=== PATIENT | female | born 1935 | race Caucasian/White ===

== ENCOUNTER 2017-05-02 21:18 | Emergency (ER) | payer MEDICARE, OTHER ==
[2017-05-02 21:22] VITALS: BP 173/70; PULSE 60; RESP 16; TEMP 98.6; O2SAT 98
[2017-05-02 21:52] VITALS: O2SAT 97
[2017-05-02 21:59] VITALS: BP 166/71; PULSE 55; RESP 16; O2SAT 98
--- NOTE | 2017-05-02 22:03 | PD ---
HPI Chief Complaint: Complaint Time Seen by Provider: 21:54 Travel History International Travel<30 days: No Contact w/Intl Traveler<30days: No Traveled to known affect area: No History of Present Illness HPI The patient is a 81 year old female who presents to the [facility] emergency department with a history of dysuria with urinary urgency and a strong odor to her urine that reportedly began 2 days ago. The patient incidentally also reports that she's had a cough, congestion, that began approximately 3 days ago after a recent cold friend came through. She does have a history of allergies. She reports that her cough has been productive of clear sputum. She denies having any fevers or back pain. She does report that yesterday she did have one episode of vomiting. She reports that today she had 1 episode of diarrhea. She does have problems with recurrent diarrhea related to a history of colitis. She is unsure of the type of colitis that she's been diagnosed with previously. She denies having any chest pain or shortness of breath. On review of systems otherwise she denies having any chills, neck pain , abdominal pain, or new neurologic symptoms. [facility] Past Medical History Narrative Medical The patient's past medical history is significant for Parkinson's disease, schizophrenia, dementia, orthostatic hypotension, history of coronary artery disease status post CT 2 years ago with angioplasty and 2 stents placed, diabetes mellitus, liver disease, chronic renal sufficiency, macular degeneration, diabetic neuropathy, left breast cancer, colon cancer. Cardiac Catheterization: Yes Dementia: Yes Diabetes: Yes Patient Takes Glucophage: No Diminished Hearing: No Medical other: Yes (NEUROPATHY) Schizophrenia: Yes Sleep Apnea: Yes ?: Not Para: 0 Past Surgical History Narrative Surgical The patient's past surgical history is significant for left breast mastectomy, partial colon resection, cardiac catheterization with 2 stents placed, eye surgery Abdominal Surgery: Yes (COLON CANCER(2002)) Coronary Stent: Yes (X2) Eye Surgery: Yes (2 CATARACTS REMOVED (2009)) Mastectomy: Yes (LEFT(2000)) Social History Alcohol Use: No Tobacco Use: No Substance Use: No Allergies-Medications (Allergen,Severity, Reaction): Coded Allergies: Barbiturates (Verified Allergy, Unknown, 05/02/17) amoxicillin (Verified Allergy, Unknown, 05/02/17) epinephrine (Verified Adverse Reaction, Unknown, Lethargy, 05/02/17) sulfamethoxazole (Verified Adverse Reaction, Unknown, Nausea/Vomiting, 05/02/17) trimethoprim (Verified Adverse Reaction, Unknown, Nausea/Vomiting, 05/02/17 ) Reported Meds & Prescriptions Reported Meds & Active Scripts Active Keflex (Cephalexin) 500 Mg Cap 500 Mg PO Q8H Review of Systems Except as stated in HPI: all other systems reviewed are Neg General / Constitutional: No: Fever Eyes: No: Visual changes HENT: Positive: Congestion, No: Headaches, Rhinorrhea, Nosebleed Cardiovascular: No: Chest Pain or Discomfort Respiratory: Positive: Cough, No: Shortness of Breath Gastrointestinal: Positive: Nausea, Vomiting, Diarrhea, No: Abdominal Pain, Hematemesis, Hematochezia, Changes in Bowel Habits, Indigestion, Loss of Appetite Genitourinary: Positive: Urgency, Dysuria, Incontinence, Other (strong odor to urine) Musculoskeletal: No: Pain Skin: No Rash Neurologic: No: Weakness, Focal Abnormalities, Change in Mentation, Slurred Speech, Sensory Disturbance Psychiatric: No: Depression Endocrine: No: Polydipsia Hematologic/Lymphatic: No: Easy Bruising Physical Exam Narrative General: The patient is a well-nourished female in no acute distress. Head and Neck exam: Head is normocephalic atraumatic. Eyes: EOMI, pupils are equal round and reactive to light. Nose: Midline septum with pink mucous membranes Mouth: Dentition unremarkable. Moist mucus membranes. Posterior oropharynx is not erythematous. No tonsillar hypertrophy. Uvula midline. Airway patent. Sinuses: No tenderness on palpation of the frontal or maxillary sinuses. Neck: No palpable lymphadenopathy. No nuchal rigidity. No thyromegaly. Cardiovascular: Regular rate and rhythm without murmurs, gallops, or rubs. Lungs: Clear to auscultation bilaterally. No wheezes, rhonchi, or rales. Abdomen: Soft, without tenderness to palpation in all 4 quadrants of the abdomen. No guarding, rebound, or rigidity. Normal bowel sounds are audible. No tenderness on palpation of McBurney's point. Extremities: No clubbing, cyanosis, or edema. 2+ pulses in all 4 extremities. Back: No spinous process tenderness to palpation. No costovertebral angle tenderness to palpation. Neurologic Exam: Grossly nonfocal. Skin Exam: No rash noted. Intact skin that is warm and dry. Data Data Last Documented VS Vital Signs Date Time Temp Pulse Resp B/P (MAP) Pulse Ox O2 Delivery O2 Flow Rate FiO2 05/02/17 21:59 55 16 166/71 (102) 98 Room Air 05/02/17 21:22 98.6 Orders Orders Urinalysis - C+S If Indicated (05/02/17 21:54) Urine Culture (05/02/17 22:18) Electrocardiogram (05/02/17 22:28) Complete Blood Count With Diff (05/02/17 22:28) Comprehensive Metabolic Panel (05/02/17 22:28) Troponin I (05/02/17 22:28) Prothrombin Time / Inr (Pt) (05/02/17:28) Act Partial Throm Time (Ptt) (05/02/17 22:28) Lipase (05/02/17 22:28) Westergren Sedimentation Rate (05/02/17 22:28) Magnesium (Mg) (05/02/17 22:28) Chest, Single Ap (05/02/17 22:28) Iv Access Insert/Monitor (05/02/17 22:28) Ecg Monitoring (05/02/17 22:28) Oximetry (05/02/17 22:28) Sodium Chlorid 0.9% 500 Ml Inj (Ns 500 M (05/02/17 22:30) Nitrofurantoin Monohyd Macrocr (Macrobid (05/02/17 22:45) Ondansetron Inj (Zofran Inj) (05/02/17 22:45) Ed Discharge Order (05/02/17 23:42) Labs Laboratory Tests Test 05/02/17 22:18 05/02/17 22:35 Urine Color YELLOW Urine Turbidity HAZY Urine pH 5.5 Urine Specific [place] 1.018 Urine Protein TRACE mg/dL Urine Glucose (UA) NEG mg/dL Urine Ketones NEG mg/dL Urine Occult Blood NEG Urine Nitrite NEG Urine Bilirubin NEG Urine Urobilinogen LESS THAN 2.0 MG/DL Urine Leukocyte Esterase LARGE Urine RBC 7 /hpf Urine WBC 151 /hpf Urine WBC Clumps FEW Urine Squamous Epithelial Cells 1 /hpf Urine Bacteria MANY /hpf Urine Hyaline Casts 6 /lpf Urine Mucus FEW /lpf Microscopic Urinalysis Comment CULTURE INDICATED White Blood Count 9.7 TH/MM3 Red Blood Count 4.04 MIL/MM3 Hemoglobin 12.8 GM/DL Hematocrit 36.9 % Mean Corpuscular Volume 91.4 FL Mean Corpuscular Hemoglobin 31.6 PG Mean Corpuscular Hemoglobin Concent 34.5 % Red Cell Distribution Width 15.0 % Platelet Count 228 TH/MM3 Mean Platelet Volume 9.2 FL Neutrophils (%) (Auto) 71.7 % Lymphocytes (%) (Auto) 21.4 % Monocytes (%) (Auto) 5.1 % Eosinophils (%) (Auto) 1.6 % Basophils (%) (Auto) 0.2 % Neutrophils # (Auto) 6.9 TH/MM3 Lymphocytes # (Auto) 2.1 TH/MM3 Monocytes # (Auto) 0.5 TH/MM3 Eosinophils # (Auto) 0.2 TH/MM3 Basophils # (Auto) 0.0 TH/MM3 CBC Comment DIFF FINAL Differential Comment Erythrocyte Sedimentation Rate 35 mm/hr Prothrombin Time 10.4 SEC Prothromb Time International Ratio 0.9 RATIO Activated Partial Thromboplast Time 25.2 SEC Blood Urea Nitrogen 33 MG/DL Creatinine 1.47 MG/DL Random Glucose 195 MG/DL Total Protein 7.8 GM/DL Albumin 3.6 GM/DL Calcium Level 8.7 MG/DL Magnesium Level 1.8 MG/DL Alkaline Phosphatase 99 U/L Aspartate Amino Transf (AST/SGOT) 18 U/L Alanine Aminotransferase (ALT/SGPT) 9 U/L Total Bilirubin 0.2 MG/DL Sodium Level 140 MEQ/L Potassium Level 3.8 MEQ/L Chloride Level 106 MEQ/L Carbon Dioxide Level 22.7 MEQ/L Anion Gap 11 MEQ/L Estimat Glomerular Filtration Rate 34 ML/MIN Troponin I LESS THAN 0.02 NG/ML Lipase 164 U/L [facility] Medical Decision Making Medical Screen Exam Complete: Yes Emergency Medical Condition: Yes Medical Record Reviewed: Yes Interpretation(s) Last Impressions Chest X-Ray 05/02/17 1598 Signed Impressions: Service Date/Time: Tuesday, May 02, 2017 22:34 - CONCLUSION: No acute cardiopulmonary abnormality is identified. Chris Bergman MD Differential Diagnosis Urinary tract infection, versus pneumonia, versus sinusitis, versus dehydration Narrative Course During the course of the patients emergency department visit, the patients history, examination, and differential diagnosis were reviewed with the patient. The patient was placed on a monitoring manager with oximetry and frequent blood pressure monitoring. The patient had IV access obtained and blood work sent for analysis. An EKG was done on arrival. The patient's EKG reveals a sinus bradycardia heart rate of 58, no acute ST segment elevation or depression , T waves are inverted in V1. QRS duration is 85 ms, QTC 420 ms. The patient was initially provided Macrobid by mouth 1. Normal saline a 500 mL bolus 1, Zofran 4 mg IV. The patients laboratory studies were reviewed and remarkable for a white count of 9.7, hemoglobin 12.8, platelets 228 with 71.7 neutrophils, sedimentation rate is 35, CMP is remarkable for a BUN of 33, creatinine 1.47, glucose 195, ALT 9, troponin I less than 0.02, lipase 164. PT PTT within normal limits. Urinalysis shows large leukocyte esterase, 7 RBCs, 151 WBCs, few clumps, many bacteria. Culture indicated. Radiology studies were reviewed and remarkable for a chest x-ray that shows no acute cardiopulmonary disease. The patient will be discharged home with a prescription for Keflex for her UTI due to the renal insufficiency. The patient is resting comfortably and feels better, is alert and in no distress. The patients results and examination findings were discussed with the patient. The repeat examination is unremarkable and benign. The history, exam, diagnostic testing, and current condition do not suggest any significant pathology to warrant further testing, continued ED treatment, admission, or surgical evaluation at this point. The vital signs have been stable. The patient does not have uncontrollable pain, intractable vomiting, or other significant symptoms. The patient's condition is stable and appropriate for discharge. The patient will pursue further outpatient evaluation with a primary care physician or other designated or consulting physician as indicated in the discharge instructions. The patient expressed understanding and was agreeable with this plan. Diagnosis Primary Impression: Urinary tract infection Qualified Codes: N30.01 - Acute cystitis with hematuria Referrals: Primary Care Physician 2 days Patient Instructions: General Instructions, Urinary Tract Infection in Women ( ED) Med/Other Pt SpecificInfo: Prescription(s) given Scripts Cephalexin (Keflex) 500 Mg Cap 500 MG PO Q8H for Infection, #21 CAP 0 Refills Prov: Emani Dumont MD 05/02/17 Disposition: 01 DISCHARGE HOME Condition: Stable Emani Dumont MD May 02, 2017 22:03
[2017-05-02 22:29] LABS: BACTERIA, URINE MANY /hpf; BLOOD, URINE NEG (NEG); COMMENT (UR) CULTURE INDICATED; CULTURE IF INDICATED CULTURE INDICATED; GLUCOSE,URINE NEG (NEG); HYALINE CAST, URINE 6 /lpf (RARE); KETONE, URINE NEG (NEG); MUCUS URINE FEW /lpf (OCC); NITRITE,URINE NEG (NEG); PH, URINE 5.5 (5.0-8.5); SQUAMOUS EPITHELIAL CELL URINE 1 /hpf (0-5); URINE COLOR YELLOW (YELLW/STRAW)
[2017-05-02] MEDS ORDERED: SODIUM CHLORID 0.9% 500 ML INJ 500 ML IV ONE (22:30)
[2017-05-02] MEDS ORDERED: ONDANSETRON HCL 4 MG/2 ML VIAL IV PUSH ONE (22:45)
[2017-05-02] MEDS ORDERED: NITROFURANTOIN MONOHYD MACROCR 100 MG CAP PO ONE (22:45)
[2017-05-02 22:47] LABS: AUTOMATED NEUTROPHIL # 6.9 TH/MM3 (1.8-7.7); BASOPHIL % 0.2 % (0.0-2.0); EOSINOPHIL # 0.2 TH/MM3 (0-0.4); EOSINOPHIL % 1.6 % (0.0-4.0); HEMATOCRIT 36.9 % (35.0-46.0); HEMO FLAGS DIFF FINAL; LYMPH % 21.4 % (9.0-44.0); LYMPHOCYTE # 2.1 TH/MM3 (1.0-4.8); MEAN CELL VOLUME 91.4 FL (80.0-100.0); MEAN CORPUSCULAR HEMOGLOBIN 31.6 PG (27.0-34.0); MEAN CORPUSCULAR HGB CONC 34.5 % (32.0-36.0); MONO % 5.1 % (0.0-8.0); NEUT % 71.7 % (16.0-70.0); PLATELET COUNT 228 TH/MM3 (150-450); RED BLOOD COUNT 4.04 MIL/MM3 (4.00-5.30); WHITE BLOOD COUNT 9.7 TH/MM3 (4.0-11.0)
[2017-05-02 22:57] LABS: ALT (GPT) 9 U/L (10-53); ANION GAP 11 MEQ/L (5-15); AST (GOT) 18 U/L (15-37); BICARBONATE 22.7 MEQ/L (21.0-32.0); BLOOD UREA NITROGEN 33 MG/DL (7-18); CHLORIDE 106 MEQ/L (98-107); GLOMERULAR FILTRATION RATE 34 ML/MIN (>89); MAGNESIUM 1.8 MG/DL (1.5-2.5); POTASSIUM 3.8 MEQ/L (3.5-5.1); SODIUM (NA) 140 MEQ/L (136-145)
--- NOTE | 2017-05-02 22:58 | RADRPT ---
EXAM DATE/TIME: 05/02/2017 22:34 [facility] COMPARISON: No previous studies available for comparison. INDICATIONS : Fever and cough. MEDICAL HISTORY : Diabetes mellitus type II. SURGICAL HISTORY : None. ENCOUNTER: Initial ACUITY: 2 days PAIN SCORE: 0/10 LOCATION: Bilateral chest FINDINGS: Portable AP view of the chest demonstrates a normal-sized cardiac silhouette. No effusion, consolidat ion, or pneumothorax is visualized. The bones and soft tissues demonstrate no acute abnormality. Clip s overlie the left ugula. CONCLUSION: No acute cardiopulmonary abnormality is identified. Chris Bergman MD on May 02, 2017 at 22:54 Board Certified Radiologist. This report was verified electronically.
[2017-05-02 23:01] LABS: ALKALINE PHOSPHATASE 99 U/L (45-117); TOTAL BILIRUBIN ADULT 0.2 MG/DL (0.2-1.0)
[2017-05-02 23:07] LABS: APTT (PATIENT) 25.2 SEC (24.3-30.1); INTERNATIONAL NORMALIZED RATIO 0.9 RATIO; PROTHROMBIN TIME - PATIENT 10.4 SEC (9.8-11.6)
[2017-05-02] MEDS ORDERED: MACR100C2 PO (23:45)
[2017-05-02] MEDS ORDERED: CEPH-460 PO ×2 (23:49→23:52)
--- NOTE | 2017-05-03 18:37 | EKG ---
Date Performed: 05/02/2017 Time Performed: 21:52:26 PTAGE: 81 years EKG: SINUS BRADYCARDIA BORDERLINE ECG NO PREVIOUS TRACING DOCTOR: Yesi Billingsley Interpretating Date/Time 05/03/2017 18:35:03
[2017-05-06] MEDS ORDERED: PROT40TA PO (11:48)
[2017-05-06] MEDS ORDERED: CLOZ25TA PO (11:48)
[2017-05-06] MEDS ORDERED: OXYB15TA PO (11:48)
[2017-05-06] MEDS ORDERED: MIRA0.5T PO (11:48)
[2017-05-06] MEDS ORDERED: VALP250C PO (11:48)
[2017-05-06] MEDS ORDERED: MONT10TA4 PO ×2 (11:48→12:29)
[2017-05-06] MEDS ORDERED: PLAV75TA29 PO (11:48)
[2017-05-06] MEDS ORDERED: CYMB60CA PO (11:48)
[2017-05-06] MEDS ORDERED: MOBI7.5T PO (11:48)
[2017-05-06] MEDS ORDERED: POTA8CAP PO (11:48)
[2017-05-06] MEDS ORDERED: NATE60TA PO ×2 (11:48→12:29)
[2017-05-06] MEDS ORDERED: METO25TA3 PO (11:48)
[2017-05-06] MEDS ORDERED: CITRTAB7 PO (11:48)
[2017-05-06] MEDS ORDERED: PRAV40TA2 PO (11:48)
[2017-05-06] MEDS ORDERED: ASPI-516 CHEW (11:48)
[2017-05-06] MEDS ORDERED: LEVO5TAB8 (11:48)
[2017-05-06] MEDS ORDERED: ASCO1CHW7 CHEW (11:48)
[2017-05-06] MEDS ORDERED: ZANA4CAP PO (11:48)
[2017-05-06] MEDS ORDERED: SYNT25TA PO ×2 (11:48→12:29)
[2017-05-06] MEDS ORDERED: FERR325T18 PO (11:48)
[2017-05-06] MEDS ORDERED: OCUVTAB PO (11:48)
[2017-05-06] MEDS ORDERED: STALTAB5 PO (11:48)
[2017-05-06] MEDS ORDERED: LEVO5TAB8 PO (12:29)
[2017-05-10] MEDS ORDERED: CYMB60CA PO (08:58)
== END 2017-05-03 00:15 | disposition home or self-care (01) ==
LOC: NEPC 21:18
DX: N30.01 Acute cystitis with hematuria (principal); B96.1 Klebsiella pneumoniae [K. pneumoniae] as the cause of diseases classified elsewhere; R05 Cough; R19.7 Diarrhea, unspecified; I25.10 Atherosclerotic heart disease of native coronary artery without angina pectoris; I25.2 Old myocardial infarction; G20 Parkinson's disease; F03.90 Unspecified dementia, unspecified severity, without behavioral disturbance, psychotic disturbance, mood disturbance, and anxiety; E11.40 Type 2 diabetes mellitus with diabetic neuropathy, unspecified; F20.9 Schizophrenia, unspecified; Z85.3 Personal history of malignant neoplasm of breast; Z85.038 Personal history of other malignant neoplasm of large intestine; Z95.5 Presence of coronary angioplasty implant and graft
CPT/HCPCS: 71010; 80053; 81001; 83690; 83735; 84484; 85025; 85610; 85652; 85730; 87077; 87086; 87186; 93005; 96374; 99285; J2405; J7040

== ENCOUNTER 2017-05-14 09:13 | Emergency (ER) | payer MEDICARE, OTHER ==
[~2017-05-14] VITALS: Ht 165.1 cm; Wt 56.5 kg
[~2017-05-14 09:13] MED LIST: ASCO1CHW7 CHEW; ASPI-516 CHEW; CEPH-460 PO; CITRTAB7 PO; CLOZ25TA PO; CYMB60CA PO; FERR325T18 PO; LEVO5TAB8 PO; METO25TA3 PO; MIRA0.5T PO; MOBI7.5T PO; MONT10TA4 PO; NATE60TA PO; OCUVTAB PO; OXYB15TA PO; PLAV75TA29 PO; POTA8CAP PO; PRAV40TA2 PO; PROT40TA PO; STALTAB5 PO; SYNT25TA PO; VALP250C PO; ZANA4CAP PO
[2017-05-14 09:15] VITALS: BP 174/70; PULSE 60; RESP 16; TEMP 97.9; O2SAT 94
[2017-05-14] MEDS ORDERED: PROCHLORPERAZINE INJ 10 MG/2 ML VIAL IVP ONE (10:00)
[2017-05-14] MEDS ORDERED: diphenhydrAMINE HCL 50 MG/ML VIAL IVP ONE (10:00)
[2017-05-14] MEDS ORDERED: SODIUM CHLORIDE 0.9% FLUSH 10 ML FLUSH IVF PRN (10:00)
--- NOTE | 2017-05-14 10:18 | PD ---
HPI . Eye pain Chief Complaint: Eye Problems/Injury Time Seen by Provider: 09:42 Travel History International Travel<30 days: No Contact w/Intl Traveler<30days: No Traveled to known affect area: No History of Present Illness HPI This patient presents with a three-day history of bilateral eye pain. She is an extremely poor historian. Her family is not much better. She keeps rubbing the back of her head and her forehead. I inquired as to whether it was her eyes that are hurting on her head that is hurting she tells me that she can't really tell. She denies any drainage from her eyes. She denies any foreign body sensation. She does report decreased visual acuity but states that she has a known history of macular degeneration and has been told to expect blindness. She describes the pain as "excruciating." There are no modifying factors. There are no associated symptoms. Family is requesting placement in a shelter. They state that they can no longer care for her at home. PFSH Past Medical History Hx Anticoagulant Therapy: No Cardiac Catheterization: Yes Cardiovascular Problems: Yes Chemotherapy: Yes Cerebrovascular Accident: No Dementia: Yes Diabetes: No Diminished Hearing: No Respiratory: No Schizophrenia: Yes Sleep Apnea: Yes Tetanus Vaccination: > 5 Years Influenza Vaccination: No ?: Not Menopausal: Yes Para: 0 Past Surgical History Abdominal Surgery: Yes (COLON CANCER(2002)) Coronary Stent: Yes (X2) Eye Surgery: Yes (2 CATARACTS REMOVED (2009)) Hysterectomy: No Mastectomy: Yes (LEFT(2000)) Social History Alcohol Use: No Tobacco Use: No Substance Use: No Allergies-Medications (Allergen,Severity, Reaction): Coded Allergies: Barbiturates (Verified Allergy, Unknown, 05/14/17) amoxicillin (Verified Allergy, Unknown, 05/14/17) epinephrine (Verified Adverse Reaction, Unknown, Lethargy, 05/14/17) sulfamethoxazole (Verified Adverse Reaction, Unknown, Nausea/Vomiting, ) trimethoprim (Verified Adverse Reaction, Unknown, Nausea/Vomiting, ) Reported Meds & Prescriptions Reported Meds & Active Scripts Active Cymbalta DR (Duloxetine HCl) 60 Mg Capdr 60 Mg PO DAILY Future refills must be from mental health (05/10/17 ) Xyzal (Levocetirizine Dihydrochloride) 5 Mg Tablet 1 Tab PO DAILY 30 Days Montelukast (Montelukast Sodium) 10 Mg Tab 10 Mg PO HS Synthroid (Levothyroxine Sodium) 25 Mcg Tab 25 Mcg PO DAILY Nateglinide 60 Mg Tab 60 Mg PO TIDAC Keflex (Cephalexin) 500 Mg Cap 500 Mg PO Q8H Reported Valproic Acid 250 Mg Cap 250 Mg PO BID Clozaril (Clozapine) 25 Mg Tab 50 Mg PO DAILY Zanaflex (Tizanidine HCl) 4 Mg Cap 4 Mg PO TID Oxybutynin ER 24 HR (Oxybutynin Chloride) 15 Mg Tab 15 Mg PO DAILY Metoprolol Tartrate 25 Mg Tab 25 Mg PO BID Ocuvite (Multiple Vitamins W/ Minerals) 1 Tab 1 Tab PO DAILY Citracal + D3 Maximum (Calcium Citrate-Vitamin D) 315-250 Mg-Unit Tab 1 Tab PO BID Ferrous Sulfate 325 Mg (65 Mg Iron) Tablet 325 Mg PO DAILY Potassium Chloride ER (Potassium Chloride) 8 Meq Cap 8 Meq PO DAILY Stalevo 75 (Gldfknjmy-Ybbqrinl-Hvndyaqcio) 18.75-75-200 Mg Tab 1 Tab PO Q8HR Vitamin C Adult Gummies (Ascorbic Acid) 125 Mg Chew 125 Mg CHEW DAILY Aspirin 81 Mg Chew 81 Mg CHEW DAILY Plavix (Clopidogrel Bisulfate) 75 Mg Tab 75 Mg PO DAILY Mirapex (Pramipexole Dihydrochloride) 0.5 Mg Tab 0.5 Mg PO HS Protonix (Pantoprazole Sodium) 40 Mg Tab 40 Mg PO DAILY Pravastatin 40 Mg Tab 40 Mg PO DAILY Mobic (Meloxicam) 7.5 Mg Tab 7.5 Mg PO DAILY Review of Systems ROS Limitations: Poor Historian Except as stated in HPI: all other systems reviewed are Neg General / Constitutional: No: Fever, Chills Eyes: Positive: Blurred Vision, Pain, No: Photophobia, Drainage, Redness, Foreign Body Sensation HENT: Positive: Headaches Cardiovascular: No: Chest Pain or Discomfort Respiratory: No: Shortness of Breath Gastrointestinal: No: Nausea, Vomiting, Diarrhea Genitourinary: No: Urgency, Frequency, Dysuria Physical Exam Narrative GENERAL: Patient is awake and alert and ultimately rubbing the back of her head and her forehead. SKIN: warm/dry. Normal color and turgor. HEAD: Normocephalic. Atraumatic. Palpation of her scalp "feels good." EYES: Pupils equal and round. No scleral icterus. No injection or drainage. Corneas clear. Examination of her eyes was difficult secondary to patient cooperation. ENT: No nasal bleeding or discharge. Mucous membranes pink and moist. NECK: Trachea midline. Full range of motion without pain.. CARDIOVASCULAR: Regular rate and rhythm. RESPIRATORY: No accessory muscle use. Clear to auscultation. Breath sounds equal bilaterally. GASTROINTESTINAL: Abdomen soft. Nontender. Bowel sounds present. Nondistended. MUSCULOSKELETAL: No obvious deformities. NEUROLOGICAL: Awake and alert. No obvious cranial nerve deficits. Motor grossly within normal limits. Normal speech. PSYCHIATRIC: Appropriate mood and affect; insight and judgment normal. Data Data Last Documented VS Vital Signs Date Time Temp Pulse Resp B/P (MAP) Pulse Ox O2 Delivery O2 Flow Rate FiO2 05/14/17 09:15 97.9 60 16 174/70 (104) 94 Room Air Orders Orders Ct Brain W/O Iv Contrast(Rout) (05/14/17 09:46) Sodium Chloride 0.9% Flush (Ns Flush) (05/14/17 10:00) Prochlorperazine Inj (Compazine Inj) (05/14/17 10:00) Diphenhydramine Inj (Benadryl Inj) (05/14/17 10:00) Diphenhydramine Inj (Benadryl Inj) (05/14/17 11:00) Haloperidol Inj (Haldol Inj) (05/14/17 11:00) Ed Discharge Order (05/14/17 11:19) MDM Medical Decision Making Medical Screen Exam Complete: Yes Emergency Medical Condition: Yes Medical Record Reviewed: Yes (this patient was seen here on 05/02. She had a complete workup at that time was found to have a urinary tract infection. She was subsequently seen in one of our outpatient clinic's on 05/06 to establish outpatient care. The nurse practitioner noted at that time that the patient is an extremely poor historian. Her caretakers have just started taking care of her and they are also poor historians. Her past medical history is significant for macular degeneration, PVD, HTN, DM, dementia, Parkinson's, schizophrenia) Differential Diagnosis Differential diagnosis of eye pain includes but is not limited to conjunctivitis , chemical irritation, corneal abrasion, acute angle-closure glaucoma. Narrative Course This patient presents with a chief complaint of eye pain. It really sounds more like a headache. She does not have any eye irritation. There is no conjunctival injection. Corneas are clear. I will do a CT of her head. I will treat her pain with IV Compazine and Benadryl. We have consulted case management regarding the request for placement. The nurses report that IV access has been impossible. Therefore, I have changed the order for Compazine and Benadryl to Haldol and Benadryl. They will be given IM. Last Impressions Head CT 05/14/17 0946 Signed Impressions: Service Date/Time: Tuesday, May 14, 2017 10:05 - CONCLUSION: 1. No acute intracranial findings. 2. Right maxillary sinus disease. Rosas Carey MD I have asked the patient how her pain is doing. She states that she is still having pain "behind my eyes." Percussion of her sinuses does not cause pain. Diagnosis Primary Impression: Headache Qualified Codes: G44.209 - Tension-type headache, unspecified, not intractable Additional Impressions: Dementia Qualified Codes: F03.90 - Unspecified dementia without behavioral disturbance Schizophrenia Qualified Codes: F20.9 - Schizophrenia, unspecified Macular degeneration Patient Instructions: Acute Headache (DC), General Instructions Disposition: 01 DISCHARGE HOME Condition: Stable Michelle Alfred MD May 14, 2017 10:18
--- NOTE | 2017-05-14 10:32 | RADRPT ---
EXAM DATE/TIME: 05/14/2017 10:05 [facility] COMPARISON: No previous studies available for comparison. INDICATIONS : Fall this morning, cephalgia for three days. RADIATION DOSE: 33.98 CTDIvol (mGy) MEDICAL HISTORY : Parkinson's. Carcinoma, colon. SURGICAL HISTORY : coronary stent placement ENCOUNTER: Initial ACUITY: 3 days PAIN SCALE: 7/10 LOCATION: Bilateral frontal head TECHNIQUE: Multiple contiguous axial images were obtained of the head. Using automated exposure control and adj ustment of the mA and/or kV according to patient size, radiation dose was kept as low as reasonably a chievable to obtain optimal diagnostic quality images. DICOM format image data is available electro nically for review and comparison. FINDINGS: CEREBRUM: Diffuse prominence of the ventricles, sulci, and cisterns indicating age-appropriate diffuse atrophy. Oval calcified extra-axial ossification in the left frontal lobe likely representing a meningioma.. No evidence of midline shift, other mass lesion, hemorrhage or acute infarction. No extra-axial flu id collections are seen. POSTERIOR FOSSA: The cerebellum and brainstem are intact. The 4th ventricle is midline. The cerebellopontine angle i s unremarkable. EXTRACRANIAL: Complete opacification of the right maxillary sinus. SKULL: The calvaria is intact. No evidence of skull fracture. CONCLUSION: 1. No acute intracranial findings. 2. Right maxillary sinus disease. Rosas Carey MD on May 14, 2017 at 10:28 Board Certified Radiologist. This report was verified electronically.
[2017-05-14] MEDS ORDERED: HALOPERIDOL LACTATE 5 MG/ML AMP IM ONE (11:00)
[2017-05-14] MEDS ORDERED: diphenhydrAMINE HCL 50 MG/ML VIAL IM ONE (11:00)
[2017-05-14 11:51] VITALS: BP 170/73; PULSE 56; RESP 17; O2SAT 98
[2017-05-14 13:52] VITALS: BP 164/68; PULSE 59; RESP 15; O2SAT 98
[2017-05-18] MEDS ORDERED: MOBI7.5T PO (08:44)
== END 2017-05-14 14:30 | disposition home or self-care (01) ==
LOC: NEPC 09:13
DX: G44.209 Tension-type headache, unspecified, not intractable (principal); F03.90 Unspecified dementia, unspecified severity, without behavioral disturbance, psychotic disturbance, mood disturbance, and anxiety; F20.9 Schizophrenia, unspecified; H35.30 Unspecified macular degeneration; I10 Essential (primary) hypertension; E11.9 Type 2 diabetes mellitus without complications; G20 Parkinson's disease; G47.30 Sleep apnea, unspecified; Z86.79 Personal history of other diseases of the circulatory system; Z86.59 Personal history of other mental and behavioral disorders
CPT/HCPCS: 70450; 96372; 99285; J1200; J1630

== ENCOUNTER 2017-05-26 22:19 | Inpatient (IN) | payer MEDICARE, OTHER ==
[~2017-05-26] VITALS: Ht 162.6 cm; Wt 55.5 kg
[~2017-05-26 22:19] MED LIST changes: -CEPH-460 PO
[2017-05-26 23:30] VITALS: BP 144/92; PULSE 64; RESP 18; O2SAT 99
--- NOTE | 2017-05-26 23:37 | PD ---
HPI Chief Complaint: Psychiatric Symptoms Time Seen by Provider: 23:34 Travel History International Travel<30 days: No Contact w/Intl Traveler<30days: No Traveled to known affect area: No History of Present Illness HPI 81-year-old white female presents to emergency department under [place] act by PD. Family members called PD because the patient had not been taking her medicines properly. She is also been refusing to eat and drink normally. She has been becoming agitated and trying to hit family members. The patient here denies this. She states that her daughter tries to give her all of her medicines at one time and she prefers to take them one at a time with applesauce. She also states that she has been eating. She contends that her daughter gets upset easily at her and wants to get her placed in a fdc. Patient denies any suicidal or homicidal ideation. She states that she does take her medications. She denies any medical complaints at this time. Patient was just seen in the emergency department 2 weeks ago for evaluation of headache. Laboratory testing including CT scan were unremarkable except for a urinary tract infection. PFSH Past Medical History Hx Anticoagulant Therapy: No Cardiac Catheterization: Yes Cardiovascular Problems: Yes Chemotherapy: Yes Cerebrovascular Accident: No Dementia: Yes Diabetes: No Diminished Hearing: No Respiratory: No Schizophrenia: Yes Sleep Apnea: Yes Menopausal: Yes Para: 0 Past Surgical History Abdominal Surgery: Yes (COLON CANCER(2002)) Coronary Stent: Yes (X2) Eye Surgery: Yes (2 CATARACTS REMOVED (2009)) Hysterectomy: No Mastectomy: Yes (LEFT(2000)) Social History Alcohol Use: No Tobacco Use: No Substance Use: No Allergies-Medications (Allergen,Severity, Reaction): Coded Allergies: Barbiturates (Verified Allergy, Unknown, 05/14/17) amoxicillin (Verified Allergy, Unknown, 05/14/17) epinephrine (Verified Adverse Reaction, Unknown, Lethargy, 05/14/17) sulfamethoxazole (Verified Adverse Reaction, Unknown, Nausea/Vomiting, ) trimethoprim (Verified Adverse Reaction, Unknown, Nausea/Vomiting, ) Reported Meds & Prescriptions Reported Meds & Active Scripts Active Macrobid (Nitrofurantoin Monohydrate Macrocrystals) 100 Mg Capsule 100 Mg PO BID 10 Days Mobic (Meloxicam) 7.5 Mg Tab 7.5 Mg PO INTERMITTENT Max 7.5mg/day. If using more than 1x week stop & call office for pain mgt referral. Cymbalta DR (Duloxetine HCl) 60 Mg Capdr 60 Mg PO DAILY Future refills must be from mental health (05/10/17 ) Xyzal (Levocetirizine Dihydrochloride) 5 Mg Tablet 1 Tab PO DAILY 30 Days Montelukast (Montelukast Sodium) 10 Mg Tab 10 Mg PO HS Synthroid (Levothyroxine Sodium) 25 Mcg Tab 25 Mcg PO DAILY Nateglinide 60 Mg Tab 60 Mg PO TIDAC Reported Valproic Acid 250 Mg Cap 250 Mg PO BID Clozaril (Clozapine) 25 Mg Tab 50 Mg PO DAILY Zanaflex (Tizanidine HCl) 4 Mg Cap 4 Mg PO TID Oxybutynin ER 24 HR (Oxybutynin Chloride) 15 Mg Tab 15 Mg PO DAILY Metoprolol Tartrate 25 Mg Tab 25 Mg PO BID Ocuvite (Multiple Vitamins W/ Minerals) 1 Tab 1 Tab PO DAILY Citracal + D3 Maximum (Calcium Citrate-Vitamin D) 315-250 Mg-Unit Tab 1 Tab PO BID Ferrous Sulfate 325 Mg (65 Mg Iron) Tablet 325 Mg PO DAILY Potassium Chloride ER (Potassium Chloride) 8 Meq Cap 8 Meq PO DAILY Stalevo 75 (Oqhiplema-Drzzwbbn-Cbkyywvydk) 18.75-75-200 Mg Tab 1 Tab PO Q8HR Vitamin C Adult Gummies (Ascorbic Acid) 125 Mg Chew 125 Mg CHEW DAILY Aspirin 81 Mg Chew 81 Mg CHEW DAILY Plavix (Clopidogrel Bisulfate) 75 Mg Tab 75 Mg PO DAILY Mirapex (Pramipexole Dihydrochloride) 0.5 Mg Tab 0.5 Mg PO HS Protonix (Pantoprazole Sodium) 40 Mg Tab 40 Mg PO DAILY Pravastatin 40 Mg Tab 40 Mg PO DAILY Review of Systems ROS Limitations: Poor Historian Physical Exam Narrative GENERAL: Well-nourished, well-developed patient. SKIN: Warm and dry. HEAD: Normocephalic and atraumatic. EYES: No scleral icterus. No injection or drainage. ENT: No nasal drainage noted. Mucous membranes pink. Airway patent. Mucous membranes are slightly dry. NECK: Supple, trachea midline. Moves head freely without obvious discomfort. CARDIOVASCULAR: Regular rate and rhythm without murmurs, gallops, or rubs. RESPIRATORY: Breath sounds equal bilaterally. No accessory muscle use. GASTROINTESTINAL: Abdomen soft, non-tender, nondistended. EXTREMITIES: No cyanosis or edema. BACK: Nontender without obvious deformity. No CVA tenderness. NEURO: Patient is alert and oriented. no sensorimotor deficits. Nonfocal. Normal speech. PSYCH: No delusions. No auditory or visual hallucinations. Data Data Last Documented VS Vital Signs Date Time Temp Pulse Resp B/P (MAP) Pulse Ox O2 Delivery O2 Flow Rate FiO2 05/27/17 01:17 72 18 165/72 (103) 100 Room Air Orders Orders Complete Blood Count With Diff (05/26/17 22:58) Comprehensive Metabolic Panel (05/26/17 22:58) Psych Screen (05/26/17 22:58) Drug Screen, Random Urine (05/26/17 22:58) Alcohol (Ethanol) (05/26/17 22:58) Salicylates (Aspirin) (05/26/17 22:58) Tylenol (Acetaminophen) (05/26/17 22:58) Urinalysis - C+S If Indicated (05/26/17 22:58) Urine Culture (05/27/17 01:32) Nitrofurantoin Monohyd Macrocr (Macrobid (05/27/17 02:00) Labs Laboratory Tests Test 05/27/17 00:15 05/27/17 01:32 White Blood Count 5.7 TH/MM3 Red Blood Count 3.82 MIL/MM3 Hemoglobin 12.0 GM/DL Hematocrit 35.5 % Mean Corpuscular Volume 92.7 FL Mean Corpuscular Hemoglobin 31.3 PG Mean Corpuscular Hemoglobin Concent 33.8 % Red Cell Distribution Width 15.1 % Platelet Count 205 TH/MM3 Mean Platelet Volume 8.4 FL Neutrophils (%) (Auto) 51.1 % Lymphocytes (%) (Auto) 38.4 % Monocytes (%) (Auto) 7.7 % Eosinophils (%) (Auto) 2.3 % Basophils (%) (Auto) 0.5 % Neutrophils # (Auto) 2.9 TH/MM3 Lymphocytes # (Auto) 2.2 TH/MM3 Monocytes # (Auto) 0.4 TH/MM3 Eosinophils # (Auto) 0.1 TH/MM3 Basophils # (Auto) 0.0 TH/MM3 CBC Comment DIFF FINAL Differential Comment Blood Urea Nitrogen 18 MG/DL Creatinine 1.19 MG/DL Random Glucose 130 MG/DL Total Protein 7.6 GM/DL Albumin 3.9 GM/DL Calcium Level 9.1 MG/DL Alkaline Phosphatase 88 U/L Aspartate Amino Transf (AST/SGOT) 15 U/L Alanine Aminotransferase (ALT/SGPT) 8 U/L Total Bilirubin 0.3 MG/DL Sodium Level 143 MEQ/L Potassium Level 3.3 MEQ/L Chloride Level 112 MEQ/L Carbon Dioxide Level 22.8 MEQ/L Anion Gap 8 MEQ/L Estimat Glomerular Filtration Rate 44 ML/MIN Salicylates Level LESS THAN 1.7 MG/DL Acetaminophen Level LESS THAN 2.0 MCG/ML Ethyl Alcohol Level LESS THAN 3 MG/DL Urine Color YELLOW Urine Turbidity HAZY Urine pH 5.5 Urine Specific [place] 1.017 Urine Protein NEG mg/dL Urine Glucose (UA) NEG mg/dL Urine Ketones NEG mg/dL Urine Occult Blood NEG Urine Nitrite NEG Urine Bilirubin NEG Urine Urobilinogen LESS THAN 2.0 MG/DL Urine Leukocyte Esterase MOD Urine RBC LESS THAN 1 /hpf Urine WBC 22 /hpf Urine Squamous Epithelial Cells <1 /hpf Urine Bacteria MANY /hpf Urine Hyaline Casts 3 /lpf Urine Mucus FEW /lpf Microscopic Urinalysis Comment CULTURE INDICATED MDM Medical Decision Making Medical Screen Exam Complete: Yes Emergency Medical Condition: Yes Medical Record Reviewed: Yes Interpretation(s) Laboratory Tests Test 05/27/17 00:15 05/27/17 01:32 White Blood Count 5.7 TH/MM3 Red Blood Count 3.82 MIL/MM3 Hemoglobin 12.0 GM/DL Hematocrit 35.5 % Mean Corpuscular Volume 92.7 FL Mean Corpuscular Hemoglobin 31.3 PG Mean Corpuscular Hemoglobin Concent 33.8 % Red Cell Distribution Width 15.1 % Platelet Count 205 TH/MM3 Mean Platelet Volume 8.4 FL Neutrophils (%) (Auto) 51.1 % Lymphocytes (%) (Auto) 38.4 % Monocytes (%) (Auto) 7.7 % Eosinophils (%) (Auto) 2.3 % Basophils (%) (Auto) 0.5 % Neutrophils # (Auto) 2.9 TH/MM3 Lymphocytes # (Auto) 2.2 TH/MM3 Monocytes # (Auto) 0.4 TH/MM3 Eosinophils # (Auto) 0.1 TH/MM3 Basophils # (Auto) 0.0 TH/MM3 CBC Comment DIFF FINAL Differential Comment Blood Urea Nitrogen 18 MG/DL Creatinine 1.19 MG/DL Random Glucose 130 MG/DL Total Protein 7.6 GM/DL Albumin 3.9 GM/DL Calcium Level 9.1 MG/DL Alkaline Phosphatase 88 U/L Aspartate Amino Transf (AST/SGOT) 15 U/L Alanine Aminotransferase (ALT/SGPT) 8 U/L Total Bilirubin 0.3 MG/DL Sodium Level 143 MEQ/L Potassium Level 3.3 MEQ/L Chloride Level 112 MEQ/L Carbon Dioxide Level 22.8 MEQ/L Anion Gap 8 MEQ/L Estimat Glomerular Filtration Rate 44 ML/MIN Salicylates Level LESS THAN 1.7 MG/DL Acetaminophen Level LESS THAN 2.0 MCG/ML Ethyl Alcohol Level LESS THAN 3 MG/DL Urine Color YELLOW Urine Turbidity HAZY Urine pH 5.5 Urine Specific [place] 1.017 Urine Protein NEG mg/dL Urine Glucose (UA) NEG mg/dL Urine Ketones NEG mg/dL Urine Occult Blood NEG Urine Nitrite NEG Urine Bilirubin NEG Urine Urobilinogen LESS THAN 2.0 MG/DL Urine Leukocyte Esterase MOD Urine RBC LESS THAN 1 /hpf Urine WBC 22 /hpf Urine Squamous Epithelial Cells <1 /hpf Urine Bacteria MANY /hpf Urine Hyaline Casts 3 /lpf Urine Mucus FEW /lpf Microscopic Urinalysis Comment CULTURE INDICATED Differential Diagnosis MDM: High Differential diagnoses: Schizophrenia, schizoaffective disorder, bipolar, anxiety, depression, adjustment reaction, mood disorder NOS, ODD, depressive disorder NOS, dementia, dementia with agitation, psychosis NOS, substance induced mood disorder, DMDD, Asperger syndrome, infection,electrolyte abnormality, malingering. Narrative Course Mental health screening discussed with the patient. Psychiatric screen ordered. Patient is given Macrobid by mouth for her UTI. Patient has been medically cleared. This is medical clearance for psychiatric admission, UTI Diagnosis Primary Impression: Medical clearance for psychiatric admission Additional Impression: UTI (urinary tract infection) Qualified Codes: N30.00 - Acute cystitis without hematuria Med/Other Pt SpecificInfo: Prescription(s) given Scripts Nitrofurantoin Monohydrate Macrocrystals (Macrobid) 100 Mg Capsule 100 MG PO BID for Infection for 10 Days, #20 CAP 0 Refills Prov: Lina Fitzpatrick DO 05/27/17 Condition: Stable Rui Rodriguez May 26, 2017 23:37
[2017-05-27 00:36] LABS: AUTOMATED NEUTROPHIL # 2.9 TH/MM3 (1.8-7.7); BASOPHIL % 0.5 % (0.0-2.0); EOSINOPHIL # 0.1 TH/MM3 (0-0.4); EOSINOPHIL % 2.3 % (0.0-4.0); HEMATOCRIT 35.5 % (35.0-46.0); HEMO FLAGS DIFF FINAL; LYMPH % 38.4 % (9.0-44.0); LYMPHOCYTE # 2.2 TH/MM3 (1.0-4.8); MEAN CELL VOLUME 92.7 FL (80.0-100.0); MEAN CORPUSCULAR HEMOGLOBIN 31.3 PG (27.0-34.0); MEAN CORPUSCULAR HGB CONC 33.8 % (32.0-36.0); MONO % 7.7 % (0.0-8.0); NEUT % 51.1 % (16.0-70.0); PLATELET COUNT 205 TH/MM3 (150-450); RED BLOOD COUNT 3.82 MIL/MM3 (4.00-5.30); RED CELL DISTRIBUTION WIDTH 15.1 % (11.6-17.2); WHITE BLOOD COUNT 5.7 TH/MM3 (4.0-11.0)
[2017-05-27 00:51] LABS: ALT (GPT) 8 U/L (10-53); ANION GAP 8 MEQ/L (5-15); AST (GOT) 15 U/L (15-37); BICARBONATE 22.8 MEQ/L (21.0-32.0); BLOOD UREA NITROGEN 18 MG/DL (7-18); CHLORIDE 112 MEQ/L (98-107); GLOMERULAR FILTRATION RATE 44 ML/MIN (>89); POTASSIUM 3.3 MEQ/L (3.5-5.1); SODIUM (NA) 143 MEQ/L (136-145)
[2017-05-27 00:53] LABS: ALKALINE PHOSPHATASE 88 U/L (45-117); TOTAL BILIRUBIN ADULT 0.3 MG/DL (0.2-1.0)
[2017-05-27 00:55] LABS: ACETAMINOPHEN LESS THAN 2.0 MCG/ML (10.0-30.0); ALCOHOL LESS THAN 3 MG/DL (0-5)
[2017-05-27 01:17] VITALS: BP 165/72; PULSE 72; RESP 18; O2SAT 100
[2017-05-27 01:52] LABS: BLOOD, URINE NEG (NEG); GLUCOSE,URINE NEG (NEG); KETONE, URINE NEG (NEG); MUCUS URINE FEW /lpf (OCC); NITRITE,URINE NEG (NEG); PH, URINE 5.5 (5.0-8.5); URINE COLOR YELLOW (YELLW/STRAW)
[2017-05-27 01:53] LABS: BACTERIA, URINE MANY /hpf; COMMENT (UR) CULTURE INDICATED; CULTURE IF INDICATED CULTURE INDICATED; HYALINE CAST, URINE 3 /lpf (RARE); SQUAMOUS EPITHELIAL CELL URINE <1 /hpf (0-5)
[2017-05-27] MEDS ORDERED: MACR100C2 PO (02:00)
[2017-05-27] MEDS ORDERED: NITROFURANTOIN MONOHYD MACROCR 100 MG CAP PO ONE (02:00)
[2017-05-27 07:22] VITALS: BP 171/72; PULSE 64; RESP 18; O2SAT 98
[2017-05-27] MEDS ORDERED: MAGNESIUM HYDROXIDE SUSP 30 ML CUP PO PRN (11:00)
[2017-05-27] MEDS ORDERED: LORazepam 1 MG TAB PO PRN (11:00)
[2017-05-27] MEDS ORDERED: ALUMINUM/MAGNESIUM/SIMETH 30 ML CUP PO PRN (11:00)
[2017-05-27] MEDS ORDERED: LORazepam 2 MG/ML VIAL IM PRN (11:00)
[2017-05-27] MEDS: VALPROIC ACID 250 MG CAP PO SCH ×2 (11:30→20:36)
[2017-05-27] MEDS: PANTOPRAZOLE SOD 40 MG DELAYED RELEASE TAB PO SCH (11:40)
[2017-05-27] MEDS: CLOPIDOGREL 75 MG TAB PO SCH (11:41)
[2017-05-27] MEDS: LEVOTHYROXINE SODIUM 25 MCG TAB PO SCH (11:41)
[2017-05-27] MEDS: DULoxetine HCl DR 60 MG CAP PO SCH (11:42)
[2017-05-27] MEDS: METOPROLOL TARTRATE 25 MG TAB PO SCH ×2 (11:43→20:35)
[2017-05-27] MEDS: QUEtiapine FUMARATE 25 MG TAB PO SCH (11:44)
[2017-05-27] MEDS ORDERED: POTASSIUM CHLORIDE 20 MEQ CONTROLLED RELEASE TAB PO ONE (11:45)
[2017-05-27] MEDS: PRAVASTATIN SOD 40 MG TAB PO SCH (11:45)
[2017-05-27] MEDS: NICOTINE 21 MG/24 HR PATCH T-DERMAL SCH (11:45)
[2017-05-27] MEDS ORDERED: GLUCAGON 1 MG/ML VIAL OTHER PRN (11:45)
[2017-05-27] MEDS: FERROUS SULFATE 325 MG (65 MG ELEMENTAL IRON) TAB PO SCH (11:45)
[2017-05-27] MEDS ORDERED: DEXTROSE 50% IN WATER 50 ML VIAL(D50) IV PUSH PRN (11:45)
[2017-05-27 11:46] VITALS: BP 137/96; PULSE 74; RESP 18; TEMP 98.7; O2SAT 100
[2017-05-27] MEDS: ASPIRIN 81 MG CHEW TAB CHEW SCH (11:46)
--- NOTE | 2017-05-27 11:52 | HHI.HP ---
Provisional Diagnosis Admission Date May 27, 2017 at 10:55 [place] I. Schizophrenia, dementia [place] II. Deferred [place] III. Asthma, hypertension, breast cancer, colon cancer in remission, hypothyroidism, diabetes, Parkinson's disease Certification of Person's Competence To Provide Express and Informed Consent I have personally examined Sharon Calhoun , a person being served at [facility] on, May 27, 2017 11:04. Express and informed consent means consent voluntarily given in writing, by a competent person, after sufficient explanation and disclosure of the subject matter involved to enable the person to make a knowing and willful decision without any element of force, fraud, deceit, duress, or other form of constraint or coercion. This person is 18 years of age or older, is not now known to be incompetent to consent to treatment with a guardian advocate, and does not have a health care surrogate or proxy currently making medical treatment decisions. I have found this person to be one of the following: [] Competent to provide express and informed consent, as defined above, for voluntary admission to this facility and is competent to provide express and informed consent for treatment. He/she has the consistent capacity to make well reasoned, willful, and knowing decisions concerning his or her medical or mental health treatment. The person fully and consistently understands the purpose of the admission for examination/placement and is fully capable of personally exercising all rights assured [place] [x] Incompetent to provide express and informed consent to voluntary admission, and this is incompetent to provide express and informed consent to treatment. The person must be transferred to involuntary status and a petition for a guardian advocate filed with the Circuit Court. [] Refusing to provide express and informed consent to voluntary admission but is competent to provide express and informed consent for treatment. The person must be discharged or transferred to involuntary status. Form shall be completed within 24 hours of a person's arrival at the receiving facility and filed in the clinical record of each person: 1. Admitted on a voluntary basis 2. Permitted to provide express and informed consent to his/her own treatment 3. Allowed to transfer from involuntary to voluntary status 4. Prior to permitting a person to consent to his or her own treatment after having been previously found incompetent to consent to treatment. History of Present Illness Capacity: Has Capacity HPI The patient is a 81-year-old white woman, domiciled with her daughter, , supported by senior care benefits, with psychiatric history of schizophrenia, 2 previous psychiatric hospitalizations, last hospitalization was 11 years ago in [facility], she is on Clozaril 35 mg, Cymbalta 60 mg, Depakote 250 medical twice a day, these medications are prescribed by a psychiatrist in [place] , presents to emergency department under [place] act by PD. Family members called PD because the patient had not been taking her medicines properly. She is also been refusing to eat and drink normally. She has been becoming agitated and trying to hit family members. On psychiatric evaluation patient is very tangential, disorganized, she doesn't really know the reason she is in the hospital. She is partially oriented. Unable to provide much information about herself and her psychiatric history. She states that her daughter tries to give her all of her medicines at one time and she prefers to take them one at a time with applesauce. She also states that she has been eating. She contends that her daughter gets upset easily at her and wants to get her placed in a alf. Patient denies any suicidal or homicidal ideation. She states that she does take her medications. She denies any medical complaints at this time. Patient was just seen in the emergency department 2 weeks ago for evaluation of headache. Laboratory testing including CT scan were unremarkable except for a urinary tract infection. Theo Dawson, , who is the daughter of the patient, clarifies that the reason she brought the patient to the hospital is because the patient has not been taking her psychotropics and has been decompensated. She says that the patient has been having active visual hallucinations, has been paranoid, disorganized and delusional. She has been agitated, difficulty to handle in the house. The patient has been in Clozaril 25 mg, Depakote 250 medical twice a day, but she is not very sure of how compliant the patient has been in the last months, definitely in the last days she has not taking any medication. She is interested in place and the patient in a alf, she says that she doesn' t feel safe with the patient at home the appropriate professional care. Review of Systems Constitutional: DENIES: Diaphoretic episodes, Fatigue, Fever, Weight gain, Weight loss, Chills, Dizziness, Change in appetite, Night Sweats Endocrine: DENIES: Abnorml menstrual pattern, Heat/cold intolerance, Polydipsia , Polyuria, Polyphagia Eyes: DENIES: Blurred vision, Diplopia, Eye inflammation, Eye pain, Vision loss , Photosensitivity, Double Vision Ears, nose, mouth, throat: DENIES: Tinnitus, Hearing loss, Vertigo, Nasal discharge, Oral lesions, Throat pain, Hoarseness, Ear Pain, Running Nose, Epistaxis, Sinus Pain, Toothache, Odynophagia Respiratory: DENIES: Apneas, Cough, Snoring, Wheezing, Hemoptysis, Sputum production, Shortness of breath Cardiovascular: DENIES: Chest pain, Palpitations, Syncope, Dyspnea on Exertion , PND, Lower Extremity Edema, Orthopnea, Claudication Gastrointestinal: DENIES: Abdominal pain, Black stools, Bloody stools, Constipation, Diarrhea, Nausea, Vomiting, Difficulty Swallowing, Anorexia Genitourinary: DENIES: Abnormal vaginal bleeding, Dysmenorrhea, Dyspareunia, Sexual dysfunction, Urinary frequency, Urinary incontinence, Urgency, Hematuria , Dysuria, Nocturia, Vaginal discharge Musculoskeletal: DENIES: Joint pain, Muscle aches, Stiffness, Joint Swelling, Back pain, Neck pain Integumentary: DENIES: Abnormal pigmentation, Pruritus, Rash, Nail changes, Breast masses, Breast skin changes, Nipple discharge Hematologic/lymphatic: DENIES: Bruising, Lymphadenopathy Immunologic/allergic: DENIES: Eczema, Urticaria Neurologic: DENIES: Abnormal gait, Headache, Localized weakness, Paresthesias, Seizures, Speech Problems, Tremor, Poor Balance Psychiatric: DENIES: Anxiety, Confusion, Mood changes, Depression, Hallucinations, Agitation, Suicidal Ideation, Homicidal Ideation, Delusions Substance Abuse History Drugs/Alcohol past 12 months she denies use of alcohol and drugs Past Family Social History Coded Allergies: Barbiturates (Verified Allergy, Unknown, 05/27/17) amoxicillin (Verified Allergy, Unknown, 05/27/17) epinephrine (Verified Adverse Reaction, Unknown, Lethargy, 05/27/17) sulfamethoxazole (Verified Adverse Reaction, Unknown, Nausea/Vomiting, 05/27/17) trimethoprim (Verified Adverse Reaction, Unknown, Nausea/Vomiting, 05/27/17 ) Active Scripts Nitrofurantoin Monohydrate Macrocrystals (Macrobid) 100 Mg Capsule, 100 MG PO BID for Infection for 10 Days, #20 CAP 0 Refills Prov:Fitzpatrick,Lina Joseph DO 05/27/17 Meloxicam (Mobic) 7.5 Mg Tab, 7.5 MG PO INTERMITTENT for Pain, #30 TAB 0 Refills Max 7.5mg/day. If using more than 1x week stop & call office for pain mgt referral. Prov:PittsKaylamarlon KOOP 05/18/[address] (Cymbalta ) 60 Mg Capdr, 60 MG PO DAILY, #30 CAP 0 Refills Future refills must be from mental health (05/10/17 ) Prov:PittsKaylaP 05/10/17 Levocetirizine Dihydrochloride (Xyzal) 5 Mg Tablet, 1 TAB PO DAILY for Allergies for 30 Days, #30 TAB 0 Refills Prov:PittsKaylamarlon KOOP 05/06/17 Montelukast (Montelukast) 10 Mg Tab, 10 MG PO HS, #30 TAB 0 Refills Prov:Kayla PittsP 05/06/17 Levothyroxine (Synthroid) 25 Mcg Tab, 25 MCG PO DAILY for Thyroid, #30 TAB 0 Refills Prov:PittsKayla [facility] 05/06/17 Nateglinide (Nateglinide) 60 Mg Tab, 60 MG PO TIDAC for Blood Sugar Management, #90 TAB 0 Refills Prov:Renato Pittsmarlon KOOP 05/06/17 Reported Medications Valproic Acid (Valproic Acid) 250 Mg Cap, 250 MG PO BID, #60 CAP 0 Refills 05/06/17 Clozapine (Clozaril) 25 Mg Tab, 50 MG PO DAILY for Schizophrenia, TAB 0 Refills 05/06/17 Tizanidine (Zanaflex) 4 Mg Cap, 4 MG PO TID for Muscle Spasm, CAP 0 Refills 05/06/17 Oxybutynin ER 24 HR (Oxybutynin ER 24 HR) 15 Mg Tab, 15 MG PO DAILY for Overactive Bladder, TAB 0 Refills 05/06/17 Metoprolol Tartrate (Metoprolol Tartrate) 25 Mg Tab, 25 MG PO BID, #60 TAB 0 Refills 05/06/17 Multiple Vitamins W/ Minerals (Ocuvite) 1 Tab, 1 TAB PO DAILY for Nutritional Supplement, TAB 0 Refills 05/06/17 Calcium Citrate-Vitamin D (Citracal + D3 Maximum) 315-250 Mg-Unit Tab, 1 TAB PO BID for Calcium Supplement, #100 TAB 0 Refills 05/06/17 Ferrous Sulfate (Ferrous Sulfate) 325 Mg (65 Mg Iron) Tablet, 325 MG PO DAILY for Nutritional Supplement, #30 TAB 0 Refills 05/06/17 Potassium Chloride ER (Potassium Chloride ER) 8 Meq Cap, 8 MEQ PO DAILY for Electrolyte Replacement, #30 CAP 0 Refills 05/06/17 Obcampniu-Fzyqklmn-Kpmgpelwwr (Stalevo 75) 18.75-75-200 Mg Tab, 1 TAB PO Q8HR for Parkinson Disease Mgmt, TAB 0 Refills 05/06/17 Ascorbic Acid (Vitamin C Adult Gummies) 125 Mg Chew, 125 MG CHEW DAILY for Nutritional Supplement, #30 TAB 0 Refills 05/06/17 Aspirin (Aspirin) 81 Mg Chew, 81 MG CHEW DAILY, TAB 0 Refills 05/06/17 Clopidogrel (Plavix) 75 Mg Tab, 75 MG PO DAILY for Blood Clot Prevention, #30 TAB 0 Refills 05/06/17 Pramipexole (Mirapex) 0.5 Mg Tab, 0.5 MG PO HS, #30 TAB 05/06/17 Pantoprazole (Protonix) 40 Mg Tab, 40 MG PO DAILY for Reflux, #30 TAB 0 Refills 05/06/17 Pravastatin (Pravastatin) 40 Mg Tab, 40 MG PO DAILY for Cholesterol Management, #30 TAB 0 Refills 05/06/17 Discontinued Scripts Cephalexin (Keflex) 500 Mg Cap, 500 MG PO Q8H for Infection, #21 CAP 0 Refills Prov:Emani Dumont MD 05/02/17 Current Medications Medications (Trade) Dose Ordered Sig/Sedrick Route Start Time Stop Time Status Last Admin (Aspirin Chew) 81 mg DAILY CHEW 05/27/17 10:45 UNV (Plavix) 75 mg DAILY PO 05/27/17 10:45 UNV (Cymbalta Dr) 60 mg DAILY PO 05/27/17 10:45 UNV (Ferrous Sulfate) 325 mg DAILY PO 05/27/17 10:45 UNV (Synthroid) 25 mcg DAILY PO 05/27/17 10:45 UNV (Lopressor) 25 mg BID PO 05/27/17 10:45 UNV (Singulair) 10 mg HS PO 05/27/17 21:00 UNV (Protonix) 40 mg DAILY PO 05/27/17 10:45 UNV (Pravachol) 40 mg DAILY PO 05/27/17 10:45 UNV (Depakene) 250 mg BID PO 05/27/17 10:45 UNV Non-Formulary Medication 1 tab Q8HR PO 05/27/17 14:00 UNV (Ativan) 1 mg Q6H PRN PO 05/27/17 11:00 UNV (Ativan Inj) 1 mg Q6H PRN IM 05/27/17 11:00 UNV (Ativan) 0.5 mg Q12H PRN PO 05/27/17 11:00 UNV (Ativan Inj) 0.5 mg Q12H PRN IM 05/27/17 11:00 UNV (Tylenol) 650 mg Q4H PRN PO 05/27/17 11:00 UNV (Milk Of Magnesia Liq) 30 ml DAILY PRN PO 05/27/17 11:00 UNV (Mag-Al Plus Susp Liq) 30 ml Q6H PRN PO 05/27/17 11:00 UNV (Habitrol 21 Mg Patch.24 Hr) 1 patch DAILY T-DERMAL 05/27/17 11:00 UNV (SEROquel) 12.5 mg BID@09,12 PO 05/27/17 12:00 UNV Non-Formulary Medication 60 mg TIDAC PO 05/27/17 12:00 UNV (Mirapex) 0.5 mg HS PO 05/27/17 21:00 UNV Family Psych History No family psychiatric history Social History She was born and raised in [place], she lives with her daughter and poor [place], she is , single, unemployed, supported by senior care benefits, she finished college Patient's Strengths (min. 2) Family support Physical Exam No tremors, no EPS, no stiffness, bradykinesia and psychomotor retardation noted Vital Signs Vital Signs Date Time Temp Pulse Resp B/P (MAP) Pulse Ox O2 Delivery O2 Flow Rate FiO2 05/27/17 07:22 64 18 171/72 (105) 98 Room Air Lab Results Test 05/27/17 00:15 05/27/17 01:32 White Blood Count 5.7 TH/MM3 Red Blood Count 3.82 MIL/MM3 Hemoglobin 12.0 GM/DL Hematocrit 35.5 % Mean Corpuscular Volume 92.7 FL Mean Corpuscular Hemoglobin 31.3 PG Mean Corpuscular Hemoglobin Concent 33.8 % Red Cell Distribution Width 15.1 % Platelet Count 205 TH/MM3 Mean Platelet Volume 8.4 FL Neutrophils (%) (Auto) 51.1 % Lymphocytes (%) (Auto) 38.4 % Monocytes (%) (Auto) 7.7 % Eosinophils (%) (Auto) 2.3 % Basophils (%) (Auto) 0.5 % Neutrophils # (Auto) 2.9 TH/MM3 Lymphocytes # (Auto) 2.2 TH/MM3 Monocytes # (Auto) 0.4 TH/MM3 Eosinophils # (Auto) 0.1 TH/MM3 Basophils # (Auto) 0.0 TH/MM3 CBC Comment DIFF FINAL Differential Comment Blood Urea Nitrogen 18 MG/DL Creatinine 1.19 MG/DL Random Glucose 130 MG/DL Total Protein 7.6 GM/DL Albumin 3.9 GM/DL Calcium Level 9.1 MG/DL Alkaline Phosphatase 88 U/L Aspartate Amino Transf (AST/SGOT) 15 U/L Alanine Aminotransferase (ALT/SGPT) 8 U/L Total Bilirubin 0.3 MG/DL Sodium Level 143 MEQ/L Potassium Level 3.3 MEQ/L Chloride Level 112 MEQ/L Carbon Dioxide Level 22.8 MEQ/L Anion Gap 8 MEQ/L Estimat Glomerular Filtration Rate 44 ML/MIN Salicylates Level LESS THAN 1.7 MG/DL Acetaminophen Level LESS THAN 2.0 MCG/ML Ethyl Alcohol Level LESS THAN 3 MG/DL Urine Color YELLOW Urine Turbidity HAZY Urine pH 5.5 Urine Specific [place] 1.017 Urine Protein NEG mg/dL Urine Glucose (UA) NEG mg/dL Urine Ketones NEG mg/dL Urine Occult Blood NEG Urine Nitrite NEG Urine Bilirubin NEG Urine Urobilinogen LESS THAN 2.0 MG/DL Urine Leukocyte Esterase MOD Urine RBC LESS THAN 1 /hpf Urine WBC 22 /hpf Urine Squamous Epithelial Cells <1 /hpf Urine Bacteria MANY /hpf Urine Hyaline Casts 3 /lpf Urine Mucus FEW /lpf Microscopic Urinalysis Comment CULTURE INDICATED Urine Opiates Screen NEG Urine Barbiturates Screen NEG Urine Amphetamines Screen NEG Urine Benzodiazepines Screen NEG Urine Cocaine Screen NEG Urine Cannabinoids Screen NEG Date/Time Source Procedure Growth Status 05/27/17 01:32 Urine Clean Catch Urine Culture Pending Received Mental Status Examination Appearance: Appropriate Consciousness: Alert Orientation: x4 Motor Activity: Normal gait Speech: Unremarkable Language: Adequate Fund of Knowledge: Adequate Attention and Concentration: Adequate Memory: Unremarkable Mood: Appropriate Affect: Blunt Thought Process & Associations: Tangential Thought Content: Appropriate, Hallucinations Hallucination Type: Auditory, Visual Delusion Type: None Suicidal Ideation: No Suicidal Plan: No Suicidal Intention: No Homicidal Ideation: No Homicidal Plan: No Homicidal Intention: No Insight: Adequate Judgment: Adequate Assessment & Plan Problem List: (1) Schizophrenia ICD Codes: F20.9 - Schizophrenia, unspecified Assessment & Plan: Patient presents to the ER with active visual and auditory hallucinations of people coming inside her room and talking to her, disorganized behavior, paranoia, tangential speech, reported agitation in the context of noncompliance with medications. She also has cognitive symptoms consisting on disorientation, confusion, fluctuation of consciousness. Current presentation seems to be related with major primary psychotic decompensation with also some chronic symptoms of dementia. Patient is a poor historian, doesn 't provide much reliable information for the psychiatric assessment. Patient will be admitted in psychiatry for stabilization and safety. We'll restart all her reconciled medical medications. Will DC clozapine due to lack of compliance and replace with Seroquel 12.5 bid and is the least probable antipsychotic to worsen parkinsonian symptoms. Will restart Will order Depakote levels and EKG. Consult physiatry for second opinion, neurology for recommendations regarding visual hallucinations induced by medications for Parkinson's. Plan was discussed with nursing charge and also with her daughter. garnett room worker intervention for psychosocial assessment, individual and group therapies, to initiate a safe discharge planning. Transfer patient to . Assessment & Plan Estimated LOS: Jake Carr MD May 27, 2017 11:52
[2017-05-27] MEDS: INSULIN ASPART SUPPLEMENTAL SCALE SQ SCH ×3 (12:00→20:37)
[2017-05-27] MEDS ORDERED: NATEGLINIDE 60 MG PO SCH (12:00)
--- NOTE | 2017-05-27 12:12 | PD.CONS ---
HPI Service [facility] Consult Requested By 81-year-old female under Re[place] act presented to the emergency department after becoming agitated and violent with her family members. Per family member report , the patient has been refusing to take her medications. [facility] consulted for medical management. At the time of our interview, the patient can only remember that she has type 2 diabetes for which she does not take insulin. She is unaware of her other medical conditions. She states it is 1959. She knows that she is in [place], but not which city. Lab work remarkable for a potassium of 3.3 and a creatinine of 1.19. Patient's creatinine is improved from 05/02 when it was 1.47. UA consistent with UTI. I spoke with the patient's daughter via phone. She stated that the patient has a PMH of HTN, DM2, Parkinson's Disease, Schizophrenia, CKD, hypothyroidism and CAD with WA and stent placement in 10/2014. Primary Care Physician Unknown Diagnoses: Review of Systems Denies fever or chills Denies blurry vision, otorrhea, rhinorrhea Denies sore throat and cough No chest pain, palpitations, shortness of breath No abdominal pain Denies constipation/diarrhea/nausea/vomiting Denies muscle pain/weakness No rashes Past Family Social History Allergies: Coded Allergies: Barbiturates (Verified Allergy, Unknown, 05/27/17) amoxicillin (Verified Allergy, Unknown, 05/27/17) epinephrine (Verified Adverse Reaction, Unknown, Lethargy, 05/27/17) sulfamethoxazole (Verified Adverse Reaction, Unknown, Nausea/Vomiting, 05/27/17) trimethoprim (Verified Adverse Reaction, Unknown, Nausea/Vomiting, 05/27/17 ) Past Medical History DM2 PD HTN Schizophrenia Glaucoma Macular Degeneration CKD Hypothyroidism CAD with WA in 2014 H/o colon ca H/o breast ca Past Surgical History Cardiac catheterization in 2014 with stent x 2 Cataract surgery Left mastectomy Colon resection Reported Medications Reported Meds & Active Scripts Active Macrobid (Nitrofurantoin Monohydrate Macrocrystals) 100 Mg Capsule 100 Mg PO BID 10 Days Mobic (Meloxicam) 7.5 Mg Tab 7.5 Mg PO INTERMITTENT Max 7.5mg/day. If using more than 1x week stop & call office for pain mgt referral. Cymbalta DR (Duloxetine HCl) 60 Mg Capdr 60 Mg PO DAILY Future refills must be from mental health (05/10/17 WM) Xyzal (Levocetirizine Dihydrochloride) 5 Mg Tablet 1 Tab PO DAILY 30 Days Montelukast (Montelukast Sodium) 10 Mg Tab 10 Mg PO HS Synthroid (Levothyroxine Sodium) 25 Mcg Tab 25 Mcg PO DAILY Nateglinide 60 Mg Tab 60 Mg PO TIDAC Reported Valproic Acid 250 Mg Cap 250 Mg PO BID Clozaril (Clozapine) 25 Mg Tab 50 Mg PO DAILY Zanaflex (Tizanidine HCl) 4 Mg Cap 4 Mg PO TID Oxybutynin ER 24 HR (Oxybutynin Chloride) 15 Mg Tab 15 Mg PO DAILY Metoprolol Tartrate 25 Mg Tab 25 Mg PO BID Ocuvite (Multiple Vitamins W/ Minerals) 1 Tab 1 Tab PO DAILY Citracal + D3 Maximum (Calcium Citrate-Vitamin D) 315-250 Mg-Unit Tab 1 Tab PO BID Ferrous Sulfate 325 Mg (65 Mg Iron) Tablet 325 Mg PO DAILY Potassium Chloride ER (Potassium Chloride) 8 Meq Cap 8 Meq PO DAILY Stalevo 75 (Pivrkeurf-Pnottyfh-Ogjmuswowd) 18.75-75-200 Mg Tab 1 Tab PO Q8HR Vitamin C Adult Gummies (Ascorbic Acid) 125 Mg Chew 125 Mg CHEW DAILY Aspirin 81 Mg Chew 81 Mg CHEW DAILY Plavix (Clopidogrel Bisulfate) 75 Mg Tab 75 Mg PO DAILY Mirapex (Pramipexole Dihydrochloride) 0.5 Mg Tab 0.5 Mg PO HS Protonix (Pantoprazole Sodium) 40 Mg Tab 40 Mg PO DAILY Pravastatin 40 Mg Tab 40 Mg PO DAILY Family History Mom with DM. Dad with schizophrenia. Social History Never smoker. No EtOH or illegal drugs. Physical Exam Vital Signs Vital Signs Date Time Temp Pulse Resp B/P (MAP) Pulse Ox O2 Delivery O2 Flow Rate FiO2 05/27/17 07:22 64 18 171/72 (105) 98 Room Air 05/27/17 01:17 72 18 165/72 (103) 100 Room Air 05/26/17 23:30 64 18 144/92 (109) 99 Room Air Physical Exam GENERAL: female sitting up in bed SKIN: No rashes, ecchymoses or lesions. Cool and dry. HEAD: Atraumatic. Normocephalic. No temporal or scalp tenderness. EYES: Pupils equal round and reactive. Extraocular motions intact. No scleral icterus. No injection or drainage. ENT: Nose without bleeding, purulent drainage or septal hematoma. Throat without erythema, tonsillar hypertrophy or exudate. Uvula midline. Airway patent. NECK: Trachea midline. No JVD or lymphadenopathy. Supple, nontender, no meningeal signs. CARDIOVASCULAR: Regular rate and rhythm without murmurs, gallops, or rubs. RESPIRATORY: Clear to auscultation. Breath sounds equal bilaterally. No wheezes , rales, or rhonchi. GASTROINTESTINAL: Abdomen soft, non-tender, nondistended. No hepato-splenomegaly , or palpable masses. No guarding. MUSCULOSKELETAL: Extremities without clubbing, cyanosis, or edema. No joint tenderness, effusion, or edema noted. No calf tenderness. Negative Homans sign bilaterally. NEUROLOGICAL: Oriented only to self. Cranial nerves II through XII intact. Motor and sensory grossly within normal limits. Normal speech. Laboratory Laboratory Tests Test 05/27/17 00:15 05/27/17 01:32 White Blood Count 5.7 Red Blood Count 3.82 Hemoglobin 12.0 Hematocrit 35.5 Mean Corpuscular Volume 92.7 Mean Corpuscular Hemoglobin 31.3 Mean Corpuscular Hemoglobin Concent 33.8 Red Cell Distribution Width 15.1 Platelet Count 205 Mean Platelet Volume 8.4 Neutrophils (%) (Auto) 51.1 Lymphocytes (%) (Auto) 38.4 Monocytes (%) (Auto) 7.7 Eosinophils (%) (Auto) 2.3 Basophils (%) (Auto) 0.5 Neutrophils # (Auto) 2.9 Lymphocytes # (Auto) 2.2 Monocytes # (Auto) 0.4 Eosinophils # (Auto) 0.1 Basophils # (Auto) 0.0 CBC Comment DIFF FINAL Differential Comment Blood Urea Nitrogen 18 Creatinine 1.19 Random Glucose 130 Total Protein 7.6 Albumin 3.9 Calcium Level 9.1 Alkaline Phosphatase 88 Aspartate Amino Transf (AST/SGOT) 15 Alanine Aminotransferase (ALT/SGPT) 8 Total Bilirubin 0.3 Sodium Level 143 Potassium Level 3.3 Chloride Level 112 Carbon Dioxide Level 22.8 Anion Gap 8 Estimat Glomerular Filtration Rate 44 Salicylates Level LESS THAN 1.7 Acetaminophen Level LESS THAN 2.0 Ethyl Alcohol Level LESS THAN 3 Urine Color YELLOW Urine Turbidity HAZY Urine pH 5.5 Urine Specific [place] 1.017 Urine Protein NEG Urine Glucose (UA) NEG Urine Ketones NEG Urine Occult Blood NEG Urine Nitrite NEG Urine Bilirubin NEG Urine Urobilinogen LESS THAN 2.0 Urine Leukocyte Esterase MOD Urine RBC LESS THAN 1 Urine WBC 22 Urine Squamous Epithelial Cells <1 Urine Bacteria MANY Urine Hyaline Casts 3 Urine Mucus FEW Microscopic Urinalysis Comment CULTURE INDICATED Urine Opiates Screen NEG Urine Barbiturates Screen NEG Urine Amphetamines Screen NEG Urine Benzodiazepines Screen NEG Urine Cocaine Screen NEG Urine Cannabinoids Screen NEG Date/Time Source Procedure Growth Status 05/27/17 01:32 Urine Clean Catch Urine Culture Pending Received Result Diagram: 05/27/17 0015 05/27/17 0015 Assessment and Plan Assessment and Plan 81-year-old female admitted to inpatient psychiatry presents with multiple medical problems. [facility] consulted for medical management. 1. UTI Continue Macrobid Urine culture pending 2. Hypokalemia Supplemented Follow BMP 3. HTN/CAD Continue home aspirin/plavix Continue home Metoprolol 4. DM2 SSI A1C pending 5. Hypothyroidism Continue home synthroid TSH pending 6. Schizophrenia Per Psychiatry Lina Alfaro MD May 27, 2017 12:12
[2017-05-27 12:55] VITALS: BP 157/69; PULSE 60; RESP 16; TEMP 98.3; O2SAT 97
--- NOTE | 2017-05-27 13:16 | PD.PSY.CON ---
Provisional Diagnosis Admission Date May 27, 2017 at 10:55 [place] I. Schizophrenia, dementia [place] II. Deferred [place] III. Asthma, hypertension, breast cancer, colon cancer in remission, hypothyroidism, diabetes, Parkinson's disease History of Present Illness Service Psychiatry Consult Requested By Dr. Carson Reason for Consult Second opinion Primary Care Physician Unknown HPI The patient is a 81-year-old white woman, domiciled with her daughter, , supported by jail benefits, with psychiatric history of schizophrenia, 2 previous psychiatric hospitalizations, last hospitalization was 11 years ago in [facility], she is on Clozaril 35 mg, Cymbalta 60 mg, Depakote 250 medical twice a day, these medications are prescribed by a psychiatrist in [place] , presents to emergency department under [place] act by PD. Family members called PD because the patient had not been taking her medicines properly. She is also been refusing to eat and drink normally. She has been becoming agitated and trying to hit family members. On psychiatric evaluation patient is very tangential, disorganized, she doesn't really know the reason she is in the hospital. She is partially oriented. Unable to provide much information about herself and her psychiatric history. She states that her daughter tries to give her all of her medicines at one time and she prefers to take them one at a time with applesauce. She also states that she has been eating. She contends that her daughter gets upset easily at her and wants to get her placed in a fpc. Patient denies any suicidal or homicidal ideation. She states that she does take her medications. She denies any medical complaints at this time. Patient was just seen in the emergency department 2 weeks ago for evaluation of headache. Laboratory testing including CT scan were unremarkable except for a urinary tract infection. Theo Dawson, , who is the daughter of the patient, clarifies that the reason she brought the patient to the hospital is because the patient has not been taking her psychotropics and has been decompensated. She says that the patient has been having active visual hallucinations, has been paranoid, disorganized and delusional. She has been agitated, difficulty to handle in the house. The patient has been in Clozaril 25 mg, Depakote 250 medical twice a day, but she is not very sure of how compliant the patient has been in the last months, definitely in the last days she has not taking any medication. She is interested in place and the patient in a fpc, she says that she doesn' t feel safe with the patient at home the appropriate professional care. 05/27/17 - Second opinion The patient is a 11-year-old woman, domiciled with daughter, , unemployed on jail benefits, past psychiatric history of schizophrenia, 2 previous psychiatric hospitalizations, past medical history of Parkinson's disease who was brought in under [place] act for reported recent aggressive behavior toward daughter as well as not eating and drinking. Patient was found lying in hospital bed on the patient medical/psychiatry unit it was noted to be alert oriented to person, confused, disorganized, making nonsensical statements and able to participate effectively in evaluation today. As per chart it was reported by patient's daughter that the patient had been having visual hallucinations, paranoia, disorganized had increasingly agitated in the home. Patient at this time will continue to require inpatient psychiatric hospitalization to further evaluate current symptoms and to adjust medications to an appropriate regimen. Past Family Social History Coded Allergies: Barbiturates (Verified Allergy, Unknown, 05/27/17) amoxicillin (Verified Allergy, Unknown, 05/27/17) epinephrine (Verified Adverse Reaction, Unknown, Lethargy, 05/27/17) sulfamethoxazole (Verified Adverse Reaction, Unknown, Nausea/Vomiting, 05/27/17) trimethoprim (Verified Adverse Reaction, Unknown, Nausea/Vomiting, 05/27/17 ) Active Scripts Nitrofurantoin Monohydrate Macrocrystals (Macrobid) 100 Mg Capsule, 100 MG PO BID for Infection for 10 Days, #20 CAP 0 Refills Prov:Lina Fitzpatrick DO 05/27/17 Meloxicam (Mobic) 7.5 Mg Tab, 7.5 MG PO INTERMITTENT for Pain, #30 TAB 0 Refills Max 7.5mg/day. If using more than 1x week stop & call office for pain mgt referral. Prov:Kayla Pitts 05/18/17 Duloxetine (Neha CHRISTY) 60 Mg Capdr, 60 MG PO DAILY, #30 CAP 0 Refills Future refills must be from mental health (05/10/17 ) Prov:Kayla Pitts 05/10/17 Levocetirizine Dihydrochloride (Xyzal) 5 Mg Tablet, 1 TAB PO DAILY for Allergies for 30 Days, #30 TAB 0 Refills Prov:Kayla Pitts Lorena KOOP 05/06/17 Montelukast (Montelukast) 10 Mg Tab, 10 MG PO HS, #30 TAB 0 Refills Prov:Kayla Pitts Lorena RN DIALYSIS 05/06/17 Levothyroxine (Synthroid) 25 Mcg Tab, 25 MCG PO DAILY for Thyroid, #30 TAB 0 Refills Prov:Toni Pittsidalmis Carrillo [facility] 05/06/17 Nateglinide (Nateglinide) 60 Mg Tab, 60 MG PO TIDAC for Blood Sugar Management, #90 TAB 0 Refills Prov:Toni Pittsidalmis Carrillo [facility] 05/06/17 Reported Medications Valproic Acid (Valproic Acid) 250 Mg Cap, 250 MG PO BID, #60 CAP 0 Refills 05/06/17 Clozapine (Clozaril) 25 Mg Tab, 50 MG PO DAILY for Schizophrenia, TAB 0 Refills 05/06/17 Tizanidine (Zanaflex) 4 Mg Cap, 4 MG PO TID for Muscle Spasm, CAP 0 Refills 05/06/17 Oxybutynin ER 24 HR (Oxybutynin ER 24 HR) 15 Mg Tab, 15 MG PO DAILY for Overactive Bladder, TAB 0 Refills 05/06/17 Metoprolol Tartrate (Metoprolol Tartrate) 25 Mg Tab, 25 MG PO BID, #60 TAB 0 Refills 05/06/17 Multiple Vitamins W/ Minerals (Ocuvite) 1 Tab, 1 TAB PO DAILY for Nutritional Supplement, TAB 0 Refills 05/06/17 Calcium Citrate-Vitamin D (Citracal + D3 Maximum) 315-250 Mg-Unit Tab, 1 TAB PO BID for Calcium Supplement, #100 TAB 0 Refills 05/06/17 Ferrous Sulfate (Ferrous Sulfate) 325 Mg (65 Mg Iron) Tablet, 325 MG PO DAILY for Nutritional Supplement, #30 TAB 0 Refills 05/06/17 Potassium Chloride ER (Potassium Chloride ER) 8 Meq Cap, 8 MEQ PO DAILY for Electrolyte Replacement, #30 CAP 0 Refills 05/06/17 Smoahhyif-Qbegxaek-Arembcipmx (Stalevo 75) 18.75-75-200 Mg Tab, 1 TAB PO Q8HR for Parkinson Disease Mgmt, TAB 0 Refills 05/06/17 Ascorbic Acid (Vitamin C Adult Gummies) 125 Mg Chew, 125 MG CHEW DAILY for Nutritional Supplement, #30 TAB 0 Refills 05/06/17 Aspirin (Aspirin) 81 Mg Chew, 81 MG CHEW DAILY, TAB 0 Refills 05/06/17 Clopidogrel (Plavix) 75 Mg Tab, 75 MG PO DAILY for Blood Clot Prevention, #30 TAB 0 Refills 05/06/17 Pramipexole (Mirapex) 0.5 Mg Tab, 0.5 MG PO HS, #30 TAB 05/06/17 Pantoprazole (Protonix) 40 Mg Tab, 40 MG PO DAILY for Reflux, #30 TAB 0 Refills 05/06/17 Pravastatin (Pravastatin) 40 Mg Tab, 40 MG PO DAILY for Cholesterol Management, #30 TAB 0 Refills 05/06/17 Discontinued Scripts Cephalexin (Keflex) 500 Mg Cap, 500 MG PO Q8H for Infection, #21 CAP 0 Refills Prov:Emani Dumont MD 05/02/17 Current Medications Medications (Trade) Dose Ordered Sig/Sedrick Route Start Time Stop Time Status Last Admin (Aspirin Chew) 81 mg DAILY CHEW 05/27/17 11:30 05/27/17 11:46 (Plavix) 75 mg DAILY PO 05/27/17 11:30 05/27/17 11:41 (Cymbalta Dr) 60 mg DAILY PO 05/27/17 11:30 05/27/17 11:42 (Ferrous Sulfate) 325 mg DAILY PO 05/27/17 10:45 05/27/17 11:45 (Synthroid) 25 mcg DAILY@0600 PO 05/27/17 11:15 05/27/17 11:41 (Lopressor) 25 mg BID PO 05/27/17 11:30 05/27/17 11:43 (Singulair) 10 mg HS PO 05/27/17 21:00 (Protonix) 40 mg DAILY PO 05/27/17 11:30 05/27/17 11:40 (Pravachol) 40 mg DAILY PO 05/27/17 11:30 05/27/17 11:45 (Depakene) 250 mg BID PO 05/27/17 11:30 Patient Own Medication PT OWN MED: STALEVO... Q8HR PO 05/27/17 14:00 Future Hold (Ativan) 0.5 mg Q12H PRN PO 05/27/17 11:00 (Ativan Inj) 0.5 mg Q12H PRN IM 05/27/17 11:00 (Tylenol) 650 mg Q4H PRN PO 05/27/17 11:00 (Milk Of Magnesia Liq) 30 ml DAILY PRN PO 05/27/17 11:00 (Mag-Al Plus Susp Liq) 30 ml Q6H PRN PO 05/27/17 11:00 (Habitrol 21 Mg Patch.24 Hr) 1 patch DAILY T-DERMAL 05/27/17 11:45 (SEROquel) 12.5 mg BID@09,12 PO 05/27/17 12:00 05/27/17 11:44 Patient Own Medication PT OWN MED: NATEGLIN... TIDAC PO 05/27/17 12:00 Future Hold (Mirapex) 0.5 mg HS PO 05/27/17 21:00 (Macrobid) 100 mg BIDPC PO 05/27/17 18:00 Miscellaneous Information 1 HS T-DERMAL 05/27/17 21:00 (D50w (Vial) Inj) 50 ml UNSCH PRN IV PUSH 05/27/17 11:45 (Glucagon Inj) 1 mg UNSCH PRN OTHER 05/27/17 11:45 (NovoLOG SUPPLEMENTAL SCALE) 1 ACHS SLIDING SCALE SQ 05/27/17 12:00 Patient's Strengths (min. 2) Family support Physical Exam Vital Signs Vital Signs Date Time Temp Pulse Resp B/P (MAP) Pulse Ox O2 Delivery O2 Flow Rate FiO2 05/27/17 12:55 98.3 60 16 157/69 (98) 97 05/27/17 11:46 Room Air Lab Results Test 05/27/17 00:15 05/27/17 01:32 05/27/17 11:55 White Blood Count 5.7 TH/MM3 Red Blood Count 3.82 MIL/MM3 Hemoglobin 12.0 GM/DL Hematocrit 35.5 % Mean Corpuscular Volume 92.7 FL Mean Corpuscular Hemoglobin 31.3 PG Mean Corpuscular Hemoglobin Concent 33.8 % Red Cell Distribution Width 15.1 % Platelet Count 205 TH/MM3 Mean Platelet Volume 8.4 FL Neutrophils (%) (Auto) 51.1 % Lymphocytes (%) (Auto) 38.4 % Monocytes (%) (Auto) 7.7 % Eosinophils (%) (Auto) 2.3 % Basophils (%) (Auto) 0.5 % Neutrophils # (Auto) 2.9 TH/MM3 Lymphocytes # (Auto) 2.2 TH/MM3 Monocytes # (Auto) 0.4 TH/MM3 Eosinophils # (Auto) 0.1 TH/MM3 Basophils # (Auto) 0.0 TH/MM3 CBC Comment DIFF FINAL Differential Comment Blood Urea Nitrogen 18 MG/DL Creatinine 1.19 MG/DL Random Glucose 130 MG/DL Total Protein 7.6 GM/DL Albumin 3.9 GM/DL Calcium Level 9.1 MG/DL Alkaline Phosphatase 88 U/L Aspartate Amino Transf (AST/SGOT) 15 U/L Alanine Aminotransferase (ALT/SGPT) 8 U/L Total Bilirubin 0.3 MG/DL Sodium Level 143 MEQ/L Potassium Level 3.3 MEQ/L Chloride Level 112 MEQ/L Carbon Dioxide Level 22.8 MEQ/L Anion Gap 8 MEQ/L Estimat Glomerular Filtration Rate 44 ML/MIN Salicylates Level LESS THAN 1.7 MG/DL Acetaminophen Level LESS THAN 2.0 MCG/ML Ethyl Alcohol Level LESS THAN 3 MG/DL Urine Color YELLOW Urine Turbidity HAZY Urine pH 5.5 Urine Specific [place] 1.017 Urine Protein NEG mg/dL Urine Glucose (UA) NEG mg/dL Urine Ketones NEG mg/dL Urine Occult Blood NEG Urine Nitrite NEG Urine Bilirubin NEG Urine Urobilinogen LESS THAN 2.0 MG/DL Urine Leukocyte Esterase MOD Urine RBC LESS THAN 1 /hpf Urine WBC 22 /hpf Urine Squamous Epithelial Cells <1 /hpf Urine Bacteria MANY /hpf Urine Hyaline Casts 3 /lpf Urine Mucus FEW /lpf Microscopic Urinalysis Comment CULTURE INDICATED Urine Opiates Screen NEG Urine Barbiturates Screen NEG Urine Amphetamines Screen NEG Urine Benzodiazepines Screen NEG Urine Cocaine Screen NEG Urine Cannabinoids Screen NEG Date/Time Source Procedure Growth Status 05/27/17 01:32 Urine Clean Catch Urine Culture Pending Received Mental Status Examination Appearance: Appropriate Consciousness: Alert Orientation: Person Speech: Unremarkable, Slow, Incoherent Language: Adequate Fund of Knowledge: Inadequate Attention and Concentration: Inadequate Memory: Impaired Mood: Other Affect: Blunt Thought Process & Associations: Disorganized, Other (making nonsensical statements) Thought Content: Other Hallucination Type: Auditory, Visual Delusion Type: None Suicidal Ideation: No Suicidal Plan: No Suicidal Intention: No Homicidal Ideation: No Homicidal Plan: No Homicidal Intention: No Insight: Poor Judgment: Poor Assessment & Plan Problem List: (1) Schizophrenia ICD Codes: F20.9 - Schizophrenia, unspecified Assessment & Plan I have seen and examined this patient, reviewed the documentation, discussed personally with Dr. Carson, and I agree and concur with his assessment and plan. Consult appreciated. Seb Collier MD May 27, 2017 13:16
[2017-05-27] MEDS ORDERED: STALEVO PO SCH (14:00)
--- NOTE | 2017-05-27 17:10 | PD.CONS ---
History of Present Illness Service Neurology Consult Requested By medical Reason for Consult pd Primary Care Physician Unknown History of Present Illness 81-year-old female under [place] act presented to the emergency department after becoming agitated and violent with her family members. pt is resting and not co- operating with exam. psych mentions visual hallucinations/pd meds. unclear if she has pd 2/2 chronic psych medication. per daughter: patient has a PMH of HTN, DM2, Parkinson's Disease?, Schizophrenia , CKD, hypothyroidism and CAD with OK and stent placement in 10/2014. the pt has been referred to Dr. Sorto neurology by the [facility] Review of Systems limited /2 pt co-operation Past Family Social History Allergies: Coded Allergies: Barbiturates (Verified Allergy, Unknown, 05/27/17) amoxicillin (Verified Allergy, Unknown, 05/27/17) epinephrine (Verified Adverse Reaction, Unknown, Lethargy, 05/27/17) sulfamethoxazole (Verified Adverse Reaction, Unknown, Nausea/Vomiting, 05/27/17) trimethoprim (Verified Adverse Reaction, Unknown, Nausea/Vomiting, 05/27/17 ) Past Medical History DM2 PD HTN Schizophrenia Glaucoma Macular Degeneration CKD Hypothyroidism CAD with OK in 2014 H/o colon ca H/o breast ca Past Surgical History Cardiac catheterization in 2014 with stent x 2 Cataract surgery Left mastectomy Colon resection Reported Medications Reported Meds & Active Scripts Active Macrobid (Nitrofurantoin Monohydrate Macrocrystals) 100 Mg Capsule 100 Mg PO BID 10 Days Mobic (Meloxicam) 7.5 Mg Tab 7.5 Mg PO INTERMITTENT Max 7.5mg/day. If using more than 1x week stop & call office for pain mgt referral. Cymbalta DR (Duloxetine HCl) 60 Mg Capdr 60 Mg PO DAILY Future refills must be from mental health (05/10/17 WM) Xyzal (Levocetirizine Dihydrochloride) 5 Mg Tablet 1 Tab PO DAILY 30 Days Montelukast (Montelukast Sodium) 10 Mg Tab 10 Mg PO HS Synthroid (Levothyroxine Sodium) 25 Mcg Tab 25 Mcg PO DAILY Nateglinide 60 Mg Tab 60 Mg PO TIDAC Reported Valproic Acid 250 Mg Cap 250 Mg PO BID Clozaril (Clozapine) 25 Mg Tab 50 Mg PO DAILY Zanaflex (Tizanidine HCl) 4 Mg Cap 4 Mg PO TID Oxybutynin ER 24 HR (Oxybutynin Chloride) 15 Mg Tab 15 Mg PO DAILY Metoprolol Tartrate 25 Mg Tab 25 Mg PO BID Ocuvite (Multiple Vitamins W/ Minerals) 1 Tab 1 Tab PO DAILY Citracal + D3 Maximum (Calcium Citrate-Vitamin D) 315-250 Mg-Unit Tab 1 Tab PO BID Ferrous Sulfate 325 Mg (65 Mg Iron) Tablet 325 Mg PO DAILY Potassium Chloride ER (Potassium Chloride) 8 Meq Cap 8 Meq PO DAILY Stalevo 75 (Fzsfjpvve-Uklmgtzq-Oqvlzafsbl) 18.75-75-200 Mg Tab 1 Tab PO Q8HR Vitamin C Adult Gummies (Ascorbic Acid) 125 Mg Chew 125 Mg CHEW DAILY Aspirin 81 Mg Chew 81 Mg CHEW DAILY Plavix (Clopidogrel Bisulfate) 75 Mg Tab 75 Mg PO DAILY Mirapex (Pramipexole Dihydrochloride) 0.5 Mg Tab 0.5 Mg PO HS Protonix (Pantoprazole Sodium) 40 Mg Tab 40 Mg PO DAILY Pravastatin 40 Mg Tab 40 Mg PO DAILY Family History Mom with DM. Dad with schizophrenia. Social History Never smoker. No EtOH or illegal drugs. Review of Systems All other ROS: ROS reviewed as documented in chart Past Family Social History Allergies: Coded Allergies: Barbiturates (Verified Allergy, Unknown, 05/27/17) amoxicillin (Verified Allergy, Unknown, 05/27/17) epinephrine (Verified Adverse Reaction, Unknown, Lethargy, 05/27/17) sulfamethoxazole (Verified Adverse Reaction, Unknown, Nausea/Vomiting, 05/27/17) trimethoprim (Verified Adverse Reaction, Unknown, Nausea/Vomiting, 05/27/17 ) Active Ordered Medications Current Medications Medications (Trade) Dose Ordered Sig/Sedrick Route Start Time Stop Time Status Last Admin (Aspirin Chew) 81 mg DAILY CHEW 05/27/17 11:30 05/27/17 11:46 (Plavix) 75 mg DAILY PO 05/27/17 11:30 05/27/17 11:41 (Cymbalta Dr) 60 mg DAILY PO 05/27/17 11:30 05/27/17 11:42 (Ferrous Sulfate) 325 mg DAILY PO 05/27/17 10:45 05/27/17 11:45 (Synthroid) 25 mcg DAILY@0600 PO 05/27/17 11:15 05/27/17 11:41 (Lopressor) 25 mg BID PO 05/27/17 11:30 05/27/17 11:43 (Singulair) 10 mg HS PO 05/27/17 21:00 (Protonix) 40 mg DAILY PO 05/27/17 11:30 05/27/17 11:40 (Pravachol) 40 mg DAILY PO 05/27/17 11:30 05/27/17 11:45 (Depakene) 250 mg BID PO 05/27/17 11:30 Patient Own Medication PT OWN MED: STALEVO... Q8HR PO 05/27/17 14:00 Future Hold (Ativan) 0.5 mg Q12H PRN PO 05/27/17 11:00 (Ativan Inj) 0.5 mg Q12H PRN IM 05/27/17 11:00 (Tylenol) 650 mg Q4H PRN PO 05/27/17 11:00 (Milk Of Magnesia Liq) 30 ml DAILY PRN PO 05/27/17 11:00 (Mag-Al Plus Susp Liq) 30 ml Q6H PRN PO 05/27/17 11:00 (Habitrol 21 Mg Patch.24 Hr) 1 patch DAILY T-DERMAL 05/27/17 11:45 (SEROquel) 12.5 mg BID@09,12 PO 05/27/17 12:00 05/27/17 11:44 Patient Own Medication PT OWN MED: NATEGLIN... TIDAC PO 05/27/17 12:00 Future Hold (Mirapex) 0.5 mg HS PO 05/27/17 21:00 (Macrobid) 100 mg BIDPC PO 05/27/17 18:00 Miscellaneous Information 1 HS T-DERMAL 05/27/17 21:00 (D50w (Vial) Inj) 50 ml UNSCH PRN IV PUSH 05/27/17 11:45 (Glucagon Inj) 1 mg UNSCH PRN OTHER 05/27/17 11:45 (NovoLOG SUPPLEMENTAL SCALE) 1 ACHS SLIDING SCALE SQ 05/27/17 12:00 Exam I&O / VS Vital Signs Date Time Temp Pulse Resp B/P (MAP) Pulse Ox O2 Delivery O2 Flow Rate FiO2 05/27/17 12:55 98.3 60 16 157/69 (98) 97 05/27/17 12:29 05/27/17 11:46 98.7 74 18 137/96 (110) 100 Room Air 05/27/17 07:22 64 18 171/72 (105) 98 Room Air 05/27/17 01:17 72 18 165/72 (103) 100 Room Air 05/26/17 23:30 64 18 144/92 (109) 99 Room Air Exam Comments resting, alerts, not following and not co-operative with exam, eomi, face sym, snow to gravity, mild rt ue resting tremor and mild ue rigidity, withdraws to tactile stimuli Review/Management Diagnosis/Plan: (1) Parkinsonism ICD Codes: G20 - Parkinson's disease Status: Chronic Plan: unclear if she has primary pd vs secondary/drug-induced visual hallucinations may be secondary to schizophrenia vs dopa-agonist(however on low dose) vs lewy body dementia vs metabolic recs d/c dopa agonist and switch to sinemet eeg mri brain if feasible labs follow exam (2) Schizophrenia ICD Codes: F20.9 - Schizophrenia, unspecified Status: Chronic (3) Macular degeneration ICD Codes: H35.30 - Unspecified macular degeneration Status: Chronic (4) Diabetes ICD Codes: E11.9 - Type 2 diabetes mellitus without complications Status: Chronic Plan: per medical Problem Qualifiers (1) Parkinsonism: (2) Schizophrenia: Qualified Codes: F20.0 - Paranoid schizophrenia Nima Gutierres MD May 27, 2017 17:10
[2017-05-27] MEDS: NITROFURANTOIN MONOHYD MACROCR 100 MG CAP PO SCH (17:11)
[2017-05-27 18:00] VITALS: BP 137/61; PULSE 58; RESP 16; TEMP 97.6; O2SAT 95
[2017-05-27] MEDS: CARBIDOPA/LEVODOPA 25 MG/100 MG TAB PO SCH (20:36)
[2017-05-27] MEDS: MONTELUKAST SODIUM 10 MG TAB PO SCH (20:36)
[2017-05-27] MEDS: ACETAMINOPHEN 325 MG TAB PO PRN (20:37)
[2017-05-27] MEDS: REMOVE OLD NICODERM (NICOTINE) PATCH T-DERMAL SCH (20:53)
[2017-05-27] MEDS ORDERED: PRAMIPEXOLE DIHYDROCHLORIDE 0.25 MG TAB PO SCH (21:00)
[2017-05-28] MEDS: CARBIDOPA/LEVODOPA 25 MG/100 MG TAB PO SCH ×3 (06:08→22:06)
[2017-05-28] MEDS: LEVOTHYROXINE SODIUM 25 MCG TAB PO SCH (06:09)
[2017-05-28] MEDS: ACETAMINOPHEN 325 MG TAB PO PRN ×2 (06:09→22:09)
[2017-05-28] MEDS: INSULIN ASPART SUPPLEMENTAL SCALE SQ SCH ×4 (07:30→21:00)
[2017-05-28] MEDS: VALPROIC ACID 250 MG CAP PO SCH ×2 (07:53→21:00)
[2017-05-28] MEDS: DULoxetine HCl DR 60 MG CAP PO SCH ×2 (07:53→21:00)
[2017-05-28] MEDS: ASPIRIN 81 MG CHEW TAB CHEW SCH (07:53)
[2017-05-28] MEDS: PANTOPRAZOLE SOD 40 MG DELAYED RELEASE TAB PO SCH (07:54)
[2017-05-28] MEDS: METOPROLOL TARTRATE 25 MG TAB PO SCH ×2 (07:54→22:05)
[2017-05-28] MEDS: PRAVASTATIN SOD 40 MG TAB PO SCH (07:54)
[2017-05-28] MEDS: QUEtiapine FUMARATE 25 MG TAB PO SCH ×2 (07:54→11:52)
[2017-05-28] MEDS: NITROFURANTOIN MONOHYD MACROCR 100 MG CAP PO SCH ×2 (07:54→16:49)
[2017-05-28] MEDS: FERROUS SULFATE 325 MG (65 MG ELEMENTAL IRON) TAB PO SCH (07:54)
[2017-05-28] MEDS: CLOPIDOGREL 75 MG TAB PO SCH (07:55)
[2017-05-28] MEDS: NICOTINE 21 MG/24 HR PATCH T-DERMAL SCH (07:56)
[2017-05-28 08:37] LABS: ANION GAP 7 MEQ/L (5-15); BICARBONATE 24.9 MEQ/L (21.0-32.0); BLOOD UREA NITROGEN 16 MG/DL (7-18); CHLORIDE 111 MEQ/L (98-107); GLOMERULAR FILTRATION RATE 46 ML/MIN (>89); POTASSIUM 3.4 MEQ/L (3.5-5.1); SODIUM (NA) 143 MEQ/L (136-145)
[2017-05-28] MEDS ORDERED: NITR100C4 PO (10:36)
--- NOTE | 2017-05-28 10:42 | HHI.PR ---
Subjective Remarks No acute events overnight. Afebrile, vital signs stable. Patient with no complaints this morning. States she would "like to continue sleeping." Objective Vitals Vital Signs Date Time Temp Pulse Resp B/P (MAP) Pulse Ox O2 Delivery O2 Flow Rate FiO2 05/27/17 18:00 97.6 58 16 137/61 (86) 95 05/27/17 12:55 98.3 60 16 157/69 (98) 97 05/27/17 12:29 05/27/17 11:46 98.7 74 18 137/96 (110) 100 Room Air I/O 05/27/17 05/27/17 05/27/17 05/28/17 05/28/17 05/28/17 07:00 15:00 23:00 07:00 15:00 23:00 Intake Total 600 ml 240 ml 240 ml Balance 600 ml 240 ml 240 ml Intake Oral 600 ml 240 ml 240 ml # Voids 1 4 2 # Bowel Movements 1 2 2 Result Diagram: 05/27/17 0015 05/28/17 0719 Objective Remarks GENERAL: female sitting up in bed SKIN: No rashes, ecchymoses or lesions. Cool and dry. HEAD: Atraumatic. Normocephalic. No temporal or scalp tenderness. EYES: Pupils equal round and reactive. Extraocular motions intact. No scleral icterus. No injection or drainage. ENT: Nose without bleeding, purulent drainage or septal hematoma. Throat without erythema, tonsillar hypertrophy or exudate. Uvula midline. Airway patent. NECK: Trachea midline. No JVD or lymphadenopathy. Supple, nontender, no meningeal signs. CARDIOVASCULAR: Regular rate and rhythm without murmurs, gallops, or rubs. RESPIRATORY: Clear to auscultation. Breath sounds equal bilaterally. No wheezes , rales, or rhonchi. GASTROINTESTINAL: Abdomen soft, non-tender, nondistended. No hepato-splenomegaly , or palpable masses. No guarding. MUSCULOSKELETAL: Extremities without clubbing, cyanosis, or edema. No joint tenderness, effusion, or edema noted. No calf tenderness. Negative Homans sign bilaterally. NEUROLOGICAL: Oriented only to self. Cranial nerves II through XII intact. Motor and sensory grossly within normal limits. Normal speech. An appropriate insight and judgment. A/P Assessment and Plan 81-year-old female admitted to inpatient psychiatry presents with multiple medical problems. [facility] consulted for medical management. 1. UTI Continue Macrobid for a total of 7 days Urine culture pending 2. Hypokalemia Supplemented 3. HTN/CAD Continue home aspirin/plavix Continue home Metoprolol 4. DM2 BG well controlled without use on insulin Diabetic diet SSI A1C pending 5. Hypothyroidism Continue home synthroid TSH 2.0 6. Schizophrenia Per Psychiatry 7. Parkinson's disease Per neurology Patient is stable from a medicine perspective. Continue Macrobid for treatment of UTI or a total of 7 days treatment. We will sign off at this time. Please reconsult if any further questions. Lina Alfaro MD May 28, 2017 10:42
[2017-05-28] MEDS ORDERED: POTASSIUM CHLORIDE 20 MEQ CONTROLLED RELEASE TAB PO ONE (10:45)
--- NOTE | 2017-05-28 12:24 | HHI.PR ---
Review/Management Diagnosis/Plan: (1) Parkinsonism ICD Codes: G20 - Parkinson's disease Status: Chronic Plan: unclear if she has primary pd vs secondary/drug-induced visual hallucinations may be secondary to schizophrenia vs dopa-agonist(however on low dose) vs lewy body dementia vs metabolic recs somnolent- consider reducing seroquel will reduce cymbalta eeg- pending mri brain- pending follow exam (2) Schizophrenia ICD Codes: F20.9 - Schizophrenia, unspecified Status: Chronic (3) Macular degeneration ICD Codes: H35.30 - Unspecified macular degeneration Status: Chronic (4) Diabetes ICD Codes: E11.9 - Type 2 diabetes mellitus without complications Status: Chronic Plan: per medical Subjective Subjective Comments No acute events reported poor hx Active Medications Current Medications Medications (Trade) Dose Ordered Sig/Sedrick Route Start Time Stop Time Status Last Admin (Aspirin Chew) 81 mg DAILY CHEW 05/27/17 11:30 05/28/17 07:53 (Plavix) 75 mg DAILY PO 05/27/17 11:30 05/28/17 07:55 (Cymbalta Dr) 60 mg DAILY PO 05/27/17 11:30 05/28/17 07:53 (Ferrous Sulfate) 325 mg DAILY PO 05/27/17 10:45 05/28/17 07:54 (Synthroid) 25 mcg DAILY@0600 PO 05/27/17 11:15 05/28/17 06:09 (Lopressor) 25 mg BID PO 05/27/17 11:30 05/28/17 07:54 (Singulair) 10 mg HS PO 05/27/17 21:00 05/27/17 20:36 (Protonix) 40 mg DAILY PO 05/27/17 11:30 05/28/17 07:54 (Pravachol) 40 mg DAILY PO 05/27/17 11:30 05/28/17 07:54 (Depakene) 250 mg BID PO 05/27/17 11:30 05/28/17 07:53 Patient Own Medication PT OWN MED: STALEVO... Q8HR PO 05/27/17 14:00 Future Hold (Ativan) 0.5 mg Q12H PRN PO 05/27/17 11:00 (Ativan Inj) 0.5 mg Q12H PRN IM 05/27/17 11:00 (Tylenol) 650 mg Q4H PRN PO 05/27/17 11:00 05/28/17 06:09 (Milk Of Magnesia Liq) 30 ml DAILY PRN PO 05/27/17 11:00 (Mag-Al Plus Susp Liq) 30 ml Q6H PRN PO 05/27/17 11:00 (Habitrol 21 Mg Patch.24 Hr) 1 patch DAILY T-DERMAL 05/27/17 11:45 (SEROquel) 12.5 mg BID@09,12 PO 05/27/17 12:00 05/28/17 11:52 Patient Own Medication PT OWN MED: NATEGLIN... TIDAC PO 05/27/17 12:00 Future Hold (Macrobid) 100 mg BIDPC PO 05/27/17 18:00 05/28/17 07:54 Miscellaneous Information 1 HS T-DERMAL 05/27/17 21:00 (D50w (Vial) Inj) 50 ml UNSCH PRN IV PUSH 05/27/17 11:45 (Glucagon Inj) 1 mg UNSCH PRN OTHER 05/27/17 11:45 (NovoLOG SUPPLEMENTAL SCALE) 1 ACHS SLIDING SCALE SQ 05/27/17 12:00 (Sinemet 25-100 Mg) 1 tab Q8HR PO 05/27/17 22:00 05/28/17 11:52 Allergies Allergies Coded Allergies Barbiturates (Verified Allergy, Unknown, 05/27/17) amoxicillin (Verified Allergy, Unknown, 05/27/17) epinephrine (Verified Adverse Reaction, Unknown, Lethargy, 05/27/17) sulfamethoxazole (Verified Adverse Reaction, Unknown, Nausea/Vomiting, 05/27/17 ) trimethoprim (Verified Adverse Reaction, Unknown, Nausea/Vomiting, 05/27/17) Review of Systems All other ROS: Unable to obtain Exam I&O / VS 05/28/17 05/28/17 05/29/17 15:00 23:00 07:00 Intake Total 240 ml Balance 240 ml Intake Oral 240 ml Vital Signs Date Time Temp Pulse Resp B/P (MAP) Pulse Ox O2 Delivery O2 Flow Rate FiO2 05/27/17 18:00 97.6 58 16 137/61 (86) 95 05/27/17 12:55 98.3 60 16 157/69 (98) 97 05/27/17 12:29 Exam Comments drowsy, not following and not co-operative with exam, eomi, face sym, grimaces, snow to gravity, no tremors, and mild ue rigidity, withdraws to tactile stimuli Objective Micro and Labs Laboratory Tests Test 05/28/17 07:19 Erythrocyte Sedimentation Rate 29 Blood Urea Nitrogen 16 Creatinine 1.14 Random Glucose 98 Calcium Level 9.0 Sodium Level 143 Potassium Level 3.4 Chloride Level 111 Carbon Dioxide Level 24.9 Anion Gap 7 Estimat Glomerular Filtration Rate 46 Ammonia LESS THAN 10 Date/Time Source Procedure Growth Status 05/27/17 01:32 Urine Clean Catch Urine Culture - Preliminary Gram Negative Luis Alberto Resulted Problem Qualifiers (1) Parkinsonism: (2) Schizophrenia: Qualified Codes: F20.0 - Paranoid schizophrenia Nima Gutierres MD May 28, 2017 12:24
--- NOTE | 2017-05-28 15:32 | RADRPT ---
EXAM DATE/TIME: 05/28/2017 14:59 [facility] COMPARISON: CT BRAIN W/O CONTRAST, May 14, 2017, 10:05. INDICATIONS : Altered mental status. Visual hallucinations. MEDICAL HISTORY : Diabetes mellitus type 2. Hypertension. Hypothyroidism. Chronic kidney disease. SURGICAL HISTORY : Mastectomy, left. Colon resection. ENCOUNTER: Initial ACUITY: 2 day PAIN SCORE: 0/10 LOCATION: cranial TECHNIQUE: Multiplanar, multisequence MRI of the brain was performed without contrast. FINDINGS: CEREBRUM: Mild to moderate diffuse cerebral volume loss. The ventricles are normal for age. No evidence of mid line shift, mass lesion, hemorrhage or acute infarction. No extraaxial fluid collections are seen. The pituitary gland and suprasellar cistern are normal in configuration. WHITE MATTER: Periventricular white matter T2 prolongation consistent small vessel ischemic demyelination. POSTERIOR FOSSA: The cerebellum and brainstem are intact. The 4th ventricle is midline. The cerebellopontine angle is unremarkable. The cerebellar tonsils are normal in position. DIFFUSION IMAGING: No focal areas of restricted diffusion are seen. No evidence of acute infarction. EXTRACRANIAL: The visualized portions of the orbits and paranasal sinuses are unremarkable. CONCLUSION: 1. Senescent changes with mild periventricular small vessel ischemic white matter dilatation. 2. No acute abnormality. Specifically, no evidence for acute ischemia/infarction or mass. Anand Cespedes MD on May 28, 2017 at 15:27 Board Certified Radiologist. This report was verified electronically.
--- NOTE | 2017-05-28 17:18 | HHI.PYPN ---
Subjective Remarks Pt seen and discussed with staff. She was agitated yesterday and slept poorly last night. She remains confused but has not been agitated today. No SI/HI. She interacts minimally during interview. Mental Status Examination Appearance: Appropriate Consciousness: Alert Orientation: Person Speech: Unremarkable, Slow, Incoherent Language: Adequate Fund of Knowledge: Inadequate Attention and Concentration: Inadequate Memory: Impaired Mood: Other Affect: Blunt Thought Process & Associations: Disorganized, Other (making nonsensical statements) Thought Content: Other Hallucination Type: Auditory, Visual Delusion Type: None Suicidal Ideation: No Suicidal Plan: No Suicidal Intention: No Homicidal Ideation: No Homicidal Plan: No Homicidal Intention: No Insight: Poor Judgment: Poor Results Labs Test 05/28/17 07:19 Erythrocyte Sedimentation Rate 29 mm/hr Blood Urea Nitrogen 16 MG/DL Creatinine 1.14 MG/DL Random Glucose 98 MG/DL Calcium Level 9.0 MG/DL Sodium Level 143 MEQ/L Potassium Level 3.4 MEQ/L Chloride Level 111 MEQ/L Carbon Dioxide Level 24.9 MEQ/L Anion Gap 7 MEQ/L Estimat Glomerular Filtration Rate 46 ML/MIN Ammonia LESS THAN 10 MCMOL/L Date/Time Source Procedure Growth Status 05/27/17 01:32 Urine Clean Catch Urine Culture - Preliminary Gram Negative Luis Alberto Resulted Vitals/IOs Vital Signs Date Time Temp Pulse Resp B/P (MAP) Pulse Ox O2 Delivery O2 Flow Rate FiO2 05/27/17 18:00 97.6 58 16 137/61 (86) 95 05/27/17 11:46 Room Air Intake and Output 05/28/17 05/28/17 05/29/17 08:00 16:00 00:00 Intake Total 240 ml 240 ml Balance 240 ml 240 ml Assessment & Plan Problem List: (1) Schizophrenia ICD Codes: F20.9 - Schizophrenia, unspecified Assessment & Plan Continue current tx plan. Estimated LOS: days Justification for Cont. Inpt. impairments in reality testing Alicia Cho MD May 28, 2017 17:18
[2017-05-28 18:00] VITALS: BP 124/64; PULSE 79; RESP 18; TEMP 97.6; O2SAT 98
[2017-05-28] MEDS: REMOVE OLD NICODERM (NICOTINE) PATCH T-DERMAL SCH (21:00)
[2017-05-28] MEDS: MONTELUKAST SODIUM 10 MG TAB PO SCH (22:06)
[2017-05-29] MEDS: CARBIDOPA/LEVODOPA 25 MG/100 MG TAB PO SCH ×3 (05:47→21:36)
[2017-05-29] MEDS: LEVOTHYROXINE SODIUM 25 MCG TAB PO SCH (05:47)
[2017-05-29] MEDS: INSULIN ASPART SUPPLEMENTAL SCALE SQ SCH ×4 (07:04→21:00)
--- NOTE | 2017-05-29 07:15 | MG ---
cc: JADEN WORRELL MD Sex: F DATE OF STUDY: May 28, 2017 [id number] DATE OF : 1935 HISTORY: 81 year-old female, history mental status changes, schizophrenia. DESCRIPTION: Appearance of stage II-III sleep with spindles, K complexes, 1 to 3 hertz delta activity, 20-50 microvolts occurring. Good EEG variability reactivity. Reduced driving with photic stimulation. Single EKG showing sinus rhythm. INTERPRETATION Appearance of stage II-III sleep. Clinical correlation. Jaden Worrell MD MG/JOSE /11:51 PM /7:08 AM
[2017-05-29] MEDS: VALPROIC ACID 250 MG CAP PO SCH ×2 (07:46→20:56)
[2017-05-29] MEDS: FERROUS SULFATE 325 MG (65 MG ELEMENTAL IRON) TAB PO SCH (07:46)
[2017-05-29] MEDS: ASPIRIN 81 MG CHEW TAB CHEW SCH (07:46)
[2017-05-29] MEDS: QUEtiapine FUMARATE 25 MG TAB PO SCH ×2 (07:47→11:16)
[2017-05-29] MEDS: NICOTINE 21 MG/24 HR PATCH T-DERMAL SCH (07:47)
[2017-05-29] MEDS: PANTOPRAZOLE SOD 40 MG DELAYED RELEASE TAB PO SCH (07:47)
[2017-05-29] MEDS: METOPROLOL TARTRATE 25 MG TAB PO SCH ×3 (07:47→21:00)
[2017-05-29] MEDS: PRAVASTATIN SOD 40 MG TAB PO SCH (07:47)
[2017-05-29] MEDS: NITROFURANTOIN MONOHYD MACROCR 100 MG CAP PO SCH ×2 (07:47→16:57)
[2017-05-29] MEDS: CLOPIDOGREL 75 MG TAB PO SCH (07:47)
[2017-05-29 09:34] LABS: HEMOGLOBIN A1a 0.9 %; HEMOGLOBIN Ao 84.6 %; HEMOGLOBIN LA1C 2.2 %; HEMOGLOBIN P3 5.3 %
--- NOTE | 2017-05-29 12:59 | HHI.PR ---
Review/Management Diagnosis/Plan: (1) Parkinsonism ICD Codes: G20 - Parkinson's disease Status: Chronic Plan: unclear if she has primary pd vs secondary/drug-induced visual hallucinations may be secondary to schizophrenia vs dopa-agonist(however on low dose) vs lewy body dementia vs metabolic none at present mci/underlying dementia recs much more alert; doing better eeg- sleep mri brain-age related changes follow exam (2) Schizophrenia ICD Codes: F20.9 - Schizophrenia, unspecified Status: Chronic (3) Macular degeneration ICD Codes: H35.30 - Unspecified macular degeneration Status: Chronic (4) Diabetes ICD Codes: E11.9 - Type 2 diabetes mellitus without complications Status: Chronic Plan: per medical Subjective Subjective Comments No acute events reported No headache No chest pain No dyspnea Active Medications Current Medications Medications (Trade) Dose Ordered Sig/Sedrick Route Start Time Stop Time Status Last Admin (Aspirin Chew) 81 mg DAILY CHEW 05/27/17 11:30 05/29/17 07:46 (Plavix) 75 mg DAILY PO 05/27/17 11:30 05/29/17 07:47 (Ferrous Sulfate) 325 mg DAILY PO 05/27/17 10:45 05/29/17 07:46 (Synthroid) 25 mcg DAILY@0600 PO 05/27/17 11:15 05/29/17 05:47 (Lopressor) 25 mg BID PO 05/27/17 11:30 05/29/17 07:47 (Singulair) 10 mg HS PO 05/27/17 21:00 05/28/17 22:06 (Protonix) 40 mg DAILY PO 05/27/17 11:30 05/29/17 07:47 (Pravachol) 40 mg DAILY PO 05/27/17 11:30 05/29/17 07:47 (Depakene) 250 mg BID PO 05/27/17 11:30 05/29/17 07:46 Patient Own Medication PT OWN MED: STALEVO... Q8HR PO 05/27/17 14:00 Future Hold (Ativan) 0.5 mg Q12H PRN PO 05/27/17 11:00 (Ativan Inj) 0.5 mg Q12H PRN IM 05/27/17 11:00 (Tylenol) 650 mg Q4H PRN PO 05/27/17 11:00 05/28/17 22:09 (Milk Of Magnesia Liq) 30 ml DAILY PRN PO 05/27/17 11:00 (Mag-Al Plus Susp Liq) 30 ml Q6H PRN PO 05/27/17 11:00 (Habitrol 21 Mg Patch.24 Hr) 1 patch DAILY T-DERMAL 05/27/17 11:45 (SEROquel) 12.5 mg BID@09,12 PO 05/27/17 12:00 05/29/17 11:16 Patient Own Medication PT OWN MED: NATEGLIN... TIDAC PO 05/27/17 12:00 Future Hold (Macrobid) 100 mg BIDPC PO 05/27/17 18:00 05/29/17 07:47 Miscellaneous Information 1 HS T-DERMAL 05/27/17 21:00 (D50w (Vial) Inj) 50 ml UNSCH PRN IV PUSH 05/27/17 11:45 (Glucagon Inj) 1 mg UNSCH PRN OTHER 05/27/17 11:45 (NovoLOG SUPPLEMENTAL SCALE) 1 ACHS SLIDING SCALE SQ 05/27/17 12:00 (Sinemet 25-100 Mg) 1 tab Q8HR PO 05/27/17 22:00 05/29/17 12:21 (Cymbalta Dr) 30 mg HS PO 05/28/17 21:00 Allergies Allergies Coded Allergies Barbiturates (Verified Allergy, Unknown, 05/27/17) amoxicillin (Verified Allergy, Unknown, 05/27/17) epinephrine (Verified Adverse Reaction, Unknown, Lethargy, 05/27/17) sulfamethoxazole (Verified Adverse Reaction, Unknown, Nausea/Vomiting, 05/27/17 ) trimethoprim (Verified Adverse Reaction, Unknown, Nausea/Vomiting, 05/27/17) Review of Systems All other ROS: Unable to obtain Exam I&O / VS 05/29/17 05/29/17 05/30/17 15:00 23:00 07:00 Intake Total 240 ml Balance 240 ml Intake Oral 240 ml Vital Signs Date Time Temp Pulse Resp B/P (MAP) Pulse Ox O2 Delivery O2 Flow Rate FiO2 05/28/17 18:00 97.6 79 18 124/64 (84) 98 Exam Comments alert, awake, sitting up eating lunch, co-operative with exam, eomi, face sym, grimaces, snow to gravity, no tremors, and mild ue rigidity, withdraws to tactile stimuli Objective Micro and Labs Date/Time Source Procedure Growth Status 05/27/17 01:32 Urine Clean Catch Urine Culture - Final Escherichia Coli Complete Problem Qualifiers (1) Parkinsonism: (2) Schizophrenia: Qualified Codes: F20.0 - Paranoid schizophrenia Nima Gutierres MD May 29, 2017 12:59
[2017-05-29] MEDS: LORazepam 2 MG/ML VIAL IM PRN (16:56)
[2017-05-29 17:16] VITALS: BP 112/55; PULSE 65; RESP 16; TEMP 97.8; O2SAT 98
--- NOTE | 2017-05-29 18:42 | HHI.PYPN ---
Subjective Remarks Pt seen and discussed with staff. She has had periods of agitation today. Compliant with medications and care. No SI/HI. Mental Status Examination Appearance: Appropriate Consciousness: Alert Orientation: Person Speech: Unremarkable, Slow, Incoherent Language: Adequate Fund of Knowledge: Inadequate Attention and Concentration: Inadequate Memory: Impaired Mood: Other Affect: Blunt Thought Process & Associations: Disorganized, Other (making nonsensical statements) Thought Content: Other Hallucination Type: Auditory, Visual Delusion Type: None Suicidal Ideation: No Suicidal Plan: No Suicidal Intention: No Homicidal Ideation: No Homicidal Plan: No Homicidal Intention: No Insight: Poor Judgment: Poor Results Labs Date/Time Source Procedure Growth Status 05/27/17 01:32 Urine Clean Catch Urine Culture - Final Escherichia Coli Complete Vitals/IOs Vital Signs Date Time Temp Pulse Resp B/P (MAP) Pulse Ox O2 Delivery O2 Flow Rate FiO2 05/29/17 17:16 97.8 65 16 112/55 (74) 98 05/27/17 11:46 Room Air Intake and Output 05/29/17 05/29/17 05/30/17 08:00 16:00 00:00 Intake Total 480 ml 240 ml 120 ml Balance 480 ml 240 ml 120 ml Assessment & Plan Problem List: (1) Schizophrenia ICD Codes: F20.9 - Schizophrenia, unspecified Assessment & Plan Continue current tx plan. Estimated LOS: days Justification for Cont. Inpt. impairments in reality testing Alicia Cho MD May 29, 2017 18:41
[2017-05-29] MEDS: MONTELUKAST SODIUM 10 MG TAB PO SCH (20:55)
[2017-05-29] MEDS: DULoxetine HCl DR 60 MG CAP PO SCH (20:56)
[2017-05-29] MEDS: REMOVE OLD NICODERM (NICOTINE) PATCH T-DERMAL SCH (21:00)
[2017-05-30] MEDS: LEVOTHYROXINE SODIUM 25 MCG TAB PO SCH (06:00)
[2017-05-30] MEDS: CARBIDOPA/LEVODOPA 25 MG/100 MG TAB PO SCH ×3 (06:00→21:28)
[2017-05-30 06:13] VITALS: BP 138/65; PULSE 65; RESP 16; TEMP 97.7; O2SAT 97
[2017-05-30] MEDS: INSULIN ASPART SUPPLEMENTAL SCALE SQ SCH ×2 (07:09→11:20)
[2017-05-30] MEDS: FERROUS SULFATE 325 MG (65 MG ELEMENTAL IRON) TAB PO SCH (08:16)
[2017-05-30] MEDS: NITROFURANTOIN MONOHYD MACROCR 100 MG CAP PO SCH ×2 (08:16→16:42)
[2017-05-30] MEDS: VALPROIC ACID 250 MG CAP PO SCH ×2 (08:16→21:28)
[2017-05-30] MEDS: ASPIRIN 81 MG CHEW TAB CHEW SCH (08:16)
[2017-05-30] MEDS: METOPROLOL TARTRATE 25 MG TAB PO SCH ×2 (08:16→21:28)
[2017-05-30] MEDS: CLOPIDOGREL 75 MG TAB PO SCH (08:17)
[2017-05-30] MEDS: NICOTINE 21 MG/24 HR PATCH T-DERMAL SCH (08:17)
[2017-05-30] MEDS: PRAVASTATIN SOD 40 MG TAB PO SCH (08:17)
[2017-05-30] MEDS: QUEtiapine FUMARATE 25 MG TAB PO SCH ×2 (08:17→21:28)
[2017-05-30] MEDS: PANTOPRAZOLE SOD 40 MG DELAYED RELEASE TAB PO SCH (08:17)
--- NOTE | 2017-05-30 12:26 | HHI.PYPN ---
Subjective Remarks Patient seen for follow-up, chart review. There is a staff reported the patient noted to be somnolent, yesterday had an episode of agitation which she required Ativan IM. Patient this morning was found lying in hospital bed noted very somnolent unable to remain awake to interact with interview but later visited in the afternoon and noted to be awake and interactive. Patient states that she is feeling fine and feeling sleepy in the morning but denies any AH. She states that she's been having some difficulty with her relationship with the daughter and that her daughter wants her partner residential. She states that she is tolerating her medications well except for being very sleepy in the morning. He states being worried about where she will go stating "I don't have any money". Patient denies SI, HI, AVH or delusions. Patient had reported. Of agitation yesterday in the afternoon which she required Ativan IM. When asked why patient was upset yesterday in the afternoon she states that she was upset at her daughter but did not expand on why. Review of Systems Except as stated in HPI: all other systems reviewed are Neg Mental Status Examination Appearance: Disheveled Consciousness: Alert Orientation: Person Speech: Unremarkable, Slow Language: Adequate Fund of Knowledge: Inadequate Attention and Concentration: Inadequate Memory: Impaired Mood: Other ("okay") Affect: Blunt Thought Process & Associations: Linear, Other (concrete) Thought Content: Appropriate, Other Hallucination Type: Auditory (denies), Visual (denies) Delusion Type: None Suicidal Ideation: No Suicidal Plan: No Suicidal Intention: No Homicidal Ideation: No Homicidal Plan: No Homicidal Intention: No Insight: Poor Judgment: Poor Results Labs Labs reviewed. Date/Time Source Procedure Growth Status 05/27/17 01:32 Urine Clean Catch Urine Culture - Final Escherichia Coli Complete Vitals/IOs Vital Signs Date Time Temp Pulse Resp B/P (MAP) Pulse Ox O2 Delivery O2 Flow Rate FiO2 05/30/17 06:13 97.7 65 16 138/65 (89) 97 05/27/17 11:46 Room Air Intake and Output 05/30/17 05/30/17 05/31/17 08:00 16:00 00:00 Intake Total 240 ml Balance 240 ml Assessment & Plan Problem List: (1) Schizophrenia ICD Codes: F20.9 - Schizophrenia, unspecified Assessment & Plan Patient noted to be sedated this morning and able to interact with interview. Patient unable to remain awake in the mornings. We'll changes quetiapine to 25 mg at bedtime and discontinue daytime Seroquel dosing. Patient continues on Depakote 250 by mouth twice a day with last valproic acid level on 05/27/17 which was subtherapeutic. Will order new level for tomorrow a.m. prior to first dose. We'll order CBC, BMP, ammonia level now. Continue recommendations as per primary medical team. Collateral pending from daughter or attempted to reach daughter several times but goes to voicemail. Discharge planning in progress Justification for Cont. Inpt. At risk for further decompensation if at lower level of care Discharge Planning Patient may not be able to return back to daughter's residence. Seb Collier MD May 30, 2017 12:26
[2017-05-30 15:38] LABS: AUTOMATED NEUTROPHIL # 2.7 TH/MM3 (1.8-7.7); BASOPHIL % 0.4 % (0.0-2.0); EOSINOPHIL # 0.2 TH/MM3 (0-0.4); EOSINOPHIL % 3.8 % (0.0-4.0); HEMATOCRIT 36.1 % (35.0-46.0); HEMO FLAGS DIFF FINAL; LYMPH % 38.7 % (9.0-44.0); LYMPHOCYTE # 2.1 TH/MM3 (1.0-4.8); MEAN CELL VOLUME 92.2 FL (80.0-100.0); MEAN CORPUSCULAR HEMOGLOBIN 30.7 PG (27.0-34.0); MEAN CORPUSCULAR HGB CONC 33.3 % (32.0-36.0); MONO % 6.8 % (0.0-8.0); NEUT % 50.3 % (16.0-70.0); PLATELET COUNT 216 TH/MM3 (150-450); RED BLOOD COUNT 3.92 MIL/MM3 (4.00-5.30); RED CELL DISTRIBUTION WIDTH 14.8 % (11.6-17.2); WHITE BLOOD COUNT 5.3 TH/MM3 (4.0-11.0)
[2017-05-30 15:49] LABS: BICARBONATE 25.8 MEQ/L (21.0-32.0); POTASSIUM 3.3 MEQ/L (3.5-5.1)
[2017-05-30 18:00] VITALS: BP 143/96; PULSE 67; RESP 18; TEMP 97.4; O2SAT 96
[2017-05-30] MEDS: ACETAMINOPHEN 325 MG TAB PO PRN (18:18)
[2017-05-30 21:00] VITALS: BP 138/80; PULSE 68; RESP 20
[2017-05-30] MEDS ORDERED: QUEtiapine FUMARATE 25 MG TAB PO SCH (21:00)
[2017-05-30] MEDS: REMOVE OLD NICODERM (NICOTINE) PATCH T-DERMAL SCH (21:00)
[2017-05-30] MEDS: MONTELUKAST SODIUM 10 MG TAB PO SCH (21:28)
[2017-05-30] MEDS: DULoxetine HCl DR 30 MG CAP PO SCH (22:44)
[2017-05-31 06:01] VITALS: BP 146/64; PULSE 57; RESP 16; O2SAT 97
[2017-05-31] MEDS: CARBIDOPA/LEVODOPA 25 MG/100 MG TAB PO SCH ×3 (06:12→21:43)
[2017-05-31] MEDS: LEVOTHYROXINE SODIUM 25 MCG TAB PO SCH (06:12)
--- NOTE | 2017-05-31 08:47 | HHI.PYPN ---
Subjective Remarks Patient seen for follow-up, chart review. She with nursing staff reported that patient has had not had any behavioral issues, has been med compliant but did report visual hallucinations of snakes yesterday. She should found lying in hospital bed awake and able to interact was interview adequately. Patient states that she slept well, had some difficulty getting to and from the bathroom. She states that physical therapy had been by her room but was instructed due to another visit. Patient states that she has not been herself lately but states feeling "trying to be optimistic". Patient denies any perceptual disturbances but did report having visual hallucination of 6 yesterday but states "but they don't hurt me". Patient is alert and oriented to person and place only. She is requesting assistance stability to shower today and states that she would like to have a place to go once she leaves the hospital. Patient states that she is unsure whether she is able to return back home with her daughter. Review of Systems Except as stated in HPI: all other systems reviewed are Neg Mental Status Examination Appearance: Disheveled Consciousness: Alert Orientation: Person Speech: Unremarkable, Slow Language: Adequate Fund of Knowledge: Inadequate Attention and Concentration: Inadequate Memory: Impaired Mood: Appropriate Affect: Blunt Thought Process & Associations: Goal directed, Linear Thought Content: Appropriate, Other Hallucination Type: Visual (of snakes last evening) Delusion Type: None Suicidal Ideation: No Suicidal Plan: No Suicidal Intention: No Homicidal Ideation: No Homicidal Plan: No Homicidal Intention: No Insight: Poor Judgment: Poor Results Labs Labs reviewed. Test 05/30/17 15:14 05/31/17 05:37 White Blood Count 5.3 TH/MM3 Red Blood Count 3.92 MIL/MM3 Hemoglobin 12.0 GM/DL Hematocrit 36.1 % Mean Corpuscular Volume 92.2 FL Mean Corpuscular Hemoglobin 30.7 PG Mean Corpuscular Hemoglobin Concent 33.3 % Red Cell Distribution Width 14.8 % Platelet Count 216 TH/MM3 Mean Platelet Volume 8.3 FL Neutrophils (%) (Auto) 50.3 % Lymphocytes (%) (Auto) 38.7 % Monocytes (%) (Auto) 6.8 % Eosinophils (%) (Auto) 3.8 % Basophils (%) (Auto) 0.4 % Neutrophils # (Auto) 2.7 TH/MM3 Lymphocytes # (Auto) 2.1 TH/MM3 Monocytes # (Auto) 0.4 TH/MM3 Eosinophils # (Auto) 0.2 TH/MM3 Basophils # (Auto) 0.0 TH/MM3 CBC Comment DIFF FINAL Differential Comment Blood Urea Nitrogen 21 MG/DL Creatinine 1.16 MG/DL Random Glucose 101 MG/DL Calcium Level 9.0 MG/DL Sodium Level 143 MEQ/L Potassium Level 3.3 MEQ/L Chloride Level 111 MEQ/L Carbon Dioxide Level 25.8 MEQ/L Anion Gap 6 MEQ/L Estimat Glomerular Filtration Rate 45 ML/MIN Ammonia 20 MCMOL/L Valproic Acid (Depakene) Level 65 MCG/ML Date/Time Source Procedure Growth Status 05/27/17 01:32 Urine Clean Catch Urine Culture - Final Escherichia Coli Complete Vitals/IOs Vital Signs Date Time Temp Pulse Resp B/P (MAP) Pulse Ox O2 Delivery O2 Flow Rate FiO2 05/31/17 06:01 57 16 146/64 (91) 97 05/30/17 18:00 97.4 05/27/17 11:46 Room Air Intake and Output 05/31/17 05/31/17 05/31/17 07:59 15:59 23:59 Intake Total 120 ml Output Total 1 ml Balance 119 ml Assessment & Plan Problem List: (1) Schizophrenia ICD Codes: F20.9 - Schizophrenia, unspecified Assessment & Plan Age at this time noted to be more reactive and alert and interaction with interview. Patient reports tolerating medications well. Patient had reports of visual hallucinations this evening but not elicited today. Nursing staff to assess patient to maintain his hygiene with assistance for showering today. Physical therapy to continue work with patient. Collateral information pending from daughter as well as to inquire whether patient was in prior treatment for glaucoma. Continue current treatment for now as patient appears responding. Discharge planning in progress Justification for Cont. Inpt. At risk for further decompensation if at lower level of care Discharge Planning Patient to be discharged to an assisted living facility if patient cannot return back home with daughter. Seb Collier MD May 31, 2017 08:47
[2017-05-31] MEDS: NICOTINE 21 MG/24 HR PATCH T-DERMAL SCH (08:50)
[2017-05-31] MEDS: NITROFURANTOIN MONOHYD MACROCR 100 MG CAP PO SCH ×2 (08:50→17:28)
[2017-05-31] MEDS: PRAVASTATIN SOD 40 MG TAB PO SCH (08:51)
[2017-05-31] MEDS: PANTOPRAZOLE SOD 40 MG DELAYED RELEASE TAB PO SCH (08:51)
[2017-05-31] MEDS: CLOPIDOGREL 75 MG TAB PO SCH (08:51)
[2017-05-31] MEDS: ASPIRIN 81 MG CHEW TAB CHEW SCH (08:52)
[2017-05-31] MEDS: FERROUS SULFATE 325 MG (65 MG ELEMENTAL IRON) TAB PO SCH (08:52)
[2017-05-31] MEDS: VALPROIC ACID 250 MG CAP PO SCH ×2 (08:52→21:00)
[2017-05-31] MEDS: METOPROLOL TARTRATE 25 MG TAB PO SCH ×2 (08:52→21:00)
--- NOTE | 2017-05-31 09:31 | PD.TTN ---
Patient Problems 1. Discharge planning 2. Medication compliance 3. Knowledge deficit 4. Lack of coping skills Progress Toward Goals Provider Present: Dr. Corby Collier Provider Input: Dr. Collier reported the patient became agitated over the weekend. He is presently adjusting patient's medications. Psychiatric Counselors Present: KHUSHBU Oneal Psych Therapist Input: Patient was asleep and did not wake up to voice or touch. Group Spec/RT/OT/MOTT Present: PANTERA López Group Spec/RT/OT/MOTT Input: Patient is new to the unit and will be encouraged to participate in therapeutic activities. Documentation Scribe: KHUSHBU Oneal Date Resolved: May 30, 2017 Ondina Luna May 31, 2017 09:31
[2017-05-31] MEDS: ACETAMINOPHEN 325 MG TAB PO PRN (14:49)
[2017-05-31] MEDS ORDERED: LOPERAMIDE HCL 2 MG CAP PO STA (16:12)
[2017-05-31 18:00] VITALS: BP 139/60; PULSE 81; RESP 16; TEMP 97.7; O2SAT 97
[2017-05-31] MEDS: MONTELUKAST SODIUM 10 MG TAB PO SCH (21:00)
[2017-05-31] MEDS: REMOVE OLD NICODERM (NICOTINE) PATCH T-DERMAL SCH (21:00)
[2017-05-31] MEDS: DULoxetine HCl DR 30 MG CAP PO SCH (21:00)
[2017-05-31] MEDS: QUEtiapine FUMARATE 25 MG TAB PO SCH (21:00)
[2017-05-31] MEDS ORDERED: DULoxetine HCl DR 30 MG CAP PO SCH (21:00)
[2017-05-31] MEDS ORDERED: QUEtiapine FUMARATE 25 MG TAB PO SCH (21:00)
[2017-06-01] MEDS: CARBIDOPA/LEVODOPA 25 MG/100 MG TAB PO SCH ×3 (06:00→21:21)
[2017-06-01] MEDS: LEVOTHYROXINE SODIUM 25 MCG TAB PO SCH (06:16)
[2017-06-01 06:27] VITALS: BP 159/70; PULSE 61; RESP 16; TEMP 98; O2SAT 99
[2017-06-01] MEDS: NICOTINE 21 MG/24 HR PATCH T-DERMAL SCH (09:00)
--- NOTE | 2017-06-01 09:11 | HHI.PR ---
Review/Management Diagnosis/Plan: (1) Parkinsonism ICD Codes: G20 - Parkinson's disease Status: Chronic Plan: doing well on sinemet recs can f/u with us outpatient no driving (2) Schizophrenia ICD Codes: F20.9 - Schizophrenia, unspecified Status: Chronic (3) Macular degeneration ICD Codes: H35.30 - Unspecified macular degeneration Status: Chronic (4) Diabetes ICD Codes: E11.9 - Type 2 diabetes mellitus without complications Status: Chronic Plan: per medical Subjective Subjective Comments No acute events reported No headache No chest pain No dyspnea Active Medications Current Medications Medications (Trade) Dose Ordered Sig/Sedrick Route Start Time Stop Time Status Last Admin (Aspirin Chew) 81 mg DAILY CHEW 05/27/17 11:30 05/31/17 08:52 (Plavix) 75 mg DAILY PO 05/27/17 11:30 05/31/17 08:51 (Ferrous Sulfate) 325 mg DAILY PO 05/27/17 10:45 05/31/17 08:52 (Synthroid) 25 mcg DAILY@0600 PO 05/27/17 11:15 06/01/17 06:16 (Lopressor) 25 mg BID PO 05/27/17 11:30 05/31/17 21:00 (Singulair) 10 mg HS PO 05/27/17 21:00 05/31/17 21:00 (Protonix) 40 mg DAILY PO 05/27/17 11:30 05/31/17 08:51 (Pravachol) 40 mg DAILY PO 05/27/17 11:30 05/31/17 08:51 (Depakene) 250 mg BID PO 05/27/17 11:30 05/31/17 21:00 Patient Own Medication PT OWN MED: STALEVO... Q8HR PO 05/27/17 14:00 Future Hold (Ativan) 0.5 mg Q12H PRN PO 05/27/17 11:00 (Ativan Inj) 0.5 mg Q12H PRN IM 05/27/17 11:00 05/29/17 16:56 (Tylenol) 650 mg Q4H PRN PO 05/27/17 11:00 05/31/17 14:49 (Milk Of Magnesia Liq) 30 ml DAILY PRN PO 05/27/17 11:00 (Mag-Al Plus Susp Liq) 30 ml Q6H PRN PO 05/27/17 11:00 (Habitrol 21 Mg Patch.24 Hr) 1 patch DAILY T-DERMAL 05/27/17 11:45 Patient Own Medication PT OWN MED: NATEGLIN... TIDAC PO 05/27/17 12:00 Future Hold (Macrobid) 100 mg BIDPC PO 05/27/17 18:00 05/31/17 17:28 Miscellaneous Information 1 HS T-DERMAL 05/27/17 21:00 (Sinemet 25-100 Mg) 1 tab Q8HR PO 05/27/17 22:00 06/01/17 06:00 (SEROquel) 25 mg HS PO 05/30/17 21:00 05/31/17 21:00 (Cymbalta Dr) 30 mg HS PO 05/30/17 21:59 05/31/17 21:00 Allergies Allergies Coded Allergies Barbiturates (Verified Allergy, Unknown, 05/27/17) amoxicillin (Verified Allergy, Unknown, 05/27/17) epinephrine (Verified Adverse Reaction, Unknown, Lethargy, 05/27/17) sulfamethoxazole (Verified Adverse Reaction, Unknown, Nausea/Vomiting, 05/27/17 ) trimethoprim (Verified Adverse Reaction, Unknown, Nausea/Vomiting, 05/27/17) Review of Systems All other ROS: Unable to obtain Exam I&O / VS Vital Signs Date Time Temp Pulse Resp B/P (MAP) Pulse Ox O2 Delivery O2 Flow Rate FiO2 06/01/17 06:27 98.0 61 16 159/70 (99) 99 05/31/17 18:00 97.7 81 16 139/60 (86) 97 Exam Comments alert, awake, ox 2-3, not to exact date, sitting up eating breakfast, co- operative with exam, eomi, face sym, grimaces, snow to gravity, mild rt leg tremor, and mild ue rigidity, withdraws to tactile stimuli Objective Micro and Labs Date/Time Source Procedure Growth Status 05/27/17 01:32 Urine Clean Catch Urine Culture - Final Escherichia Coli Complete Problem Qualifiers (1) Parkinsonism: (2) Schizophrenia: Qualified Codes: F20.0 - Paranoid schizophrenia Nima Gutierres MD Jun 01, 2017 09:11
[2017-06-01] MEDS: ASPIRIN 81 MG CHEW TAB CHEW SCH (10:03)
[2017-06-01] MEDS: PANTOPRAZOLE SOD 40 MG DELAYED RELEASE TAB PO SCH (10:03)
[2017-06-01] MEDS: VALPROIC ACID 250 MG CAP PO SCH ×2 (10:03→21:21)
[2017-06-01] MEDS: FERROUS SULFATE 325 MG (65 MG ELEMENTAL IRON) TAB PO SCH (10:03)
[2017-06-01] MEDS: CLOPIDOGREL 75 MG TAB PO SCH (10:03)
[2017-06-01] MEDS: NITROFURANTOIN MONOHYD MACROCR 100 MG CAP PO SCH ×2 (10:03→16:56)
[2017-06-01] MEDS: PRAVASTATIN SOD 40 MG TAB PO SCH (10:03)
[2017-06-01] MEDS: METOPROLOL TARTRATE 25 MG TAB PO SCH ×2 (10:04→21:20)
[2017-06-01] MEDS ORDERED: PILL SPLITTER OTHER PRN (11:15)
--- NOTE | 2017-06-01 14:01 | HHI.PYPN ---
Subjective Remarks Patient seen for follow-up, chart reviewed. Discussion with nursing staff reported that patient had refused medications initially but later compliant. She was also noted to have paranoia. Patient found in the hallway, calm and cooperative. She states feeling "alright", denies any perceptual disturbances but has been paranoid at times with staff. Patient spoke with sister over the phone but did not provide specifics of the conversation. She was A&O to person and date but not to place. Patient states feeling worried that her daughter has sold all her belongings as she states cannot return back to live with the daughter. Review of Systems Except as stated in HPI: all other systems reviewed are Neg Mental Status Examination Appearance: Disheveled Consciousness: Alert Orientation: Person Speech: Unremarkable, Slow Language: Adequate Fund of Knowledge: Inadequate Attention and Concentration: Inadequate Memory: Impaired Mood: Appropriate Affect: Blunt Thought Process & Associations: Goal directed, Linear Thought Content: Appropriate, Other Hallucination Type: Visual (denies today) Delusion Type: None Suicidal Ideation: No Suicidal Plan: No Suicidal Intention: No Homicidal Ideation: No Homicidal Plan: No Homicidal Intention: No Insight: Poor Judgment: Poor Results Labs labs reviewed Date/Time Source Procedure Growth Status 05/27/17 01:32 Urine Clean Catch Urine Culture - Final Escherichia Coli Complete Vitals/IOs Vital Signs Date Time Temp Pulse Resp B/P (MAP) Pulse Ox O2 Delivery O2 Flow Rate FiO2 06/01/17 06:27 98.0 61 16 159/70 (99) 99 Intake and Output 06/01/17 06/01/17 06/02/17 08:00 16:00 00:00 Intake Total 360 ml 320 ml Balance 360 ml 320 ml Assessment & Plan Problem List: (1) Schizophrenia ICD Codes: F20.9 - Schizophrenia, unspecified Assessment & Plan Patient at this time continues to be inconsistent with medications noted to be paranoid at times. Will increase quetiapine to 37.5 mg by mouth at bedtime. Continue rest of medications as ordered. Continue to monitor mood and behavior. Continue physical therapy while on the unit. Collateral information pending from family. Discharge planning in progress Justification for Cont. Inpt. At risk for further decompensation if at lower level of care Discharge Planning Patient to be discharged to a nursing facility once one is acquired Seb Collier MD Jun 01, 2017 14:01
--- NOTE | 2017-06-01 14:49 | PD.TTN ---
Patient Problems 1. Discharge planning 2. Medication compliance 3. Knowledge deficit 4. Lack of coping skills Progress Toward Goals Provider Present: Dr. Corby Collier Provider Input: 06/01/2017' patient is stabilizing via medication showing good progress with behavior and mood Dr. Collier reported the patient became agitated over the weekend. He is presently adjusting patient's medications. Nurse(s) Present: DALLAS Reynolds Nurse(s) Input: Patient is eating meals and taking her medication; responding appropriately with treatment Psychiatric Counselors Present: RA Garcia Psych Therapist Input: 06/01/2017; Counselor will be contacting [facility] to ensure they only require 1823 to return to the facility Patient was asleep and did not wake up to voice or touch. Group Spec/RT/OT/MOTT Present: PANTERA López Group Spec/RT/OT/MOTT Input: 06/01/2017 Patient has been unable to participate with activities but obtain face to face contact and activities Patient is new to the unit and will be encouraged to participate in therapeutic activities. Documentation Scribe: RA Garcia Sandra LMHC Jun 01, 2017 14:49
[2017-06-01 18:00] VITALS: BP 182/77; PULSE 75; RESP 16; TEMP 98; O2SAT 92
[2017-06-01] MEDS: REMOVE OLD NICODERM (NICOTINE) PATCH T-DERMAL SCH (21:00)
[2017-06-01] MEDS: DULoxetine HCl DR 30 MG CAP PO SCH (21:20)
[2017-06-01] MEDS: MONTELUKAST SODIUM 10 MG TAB PO SCH (21:20)
[2017-06-01] MEDS: QUEtiapine FUMARATE 25 MG TAB PO SCH (21:21)
[2017-06-02 01:00] VITALS: BP 166/73; PULSE 65
[2017-06-02 05:59] VITALS: BP 117/61; PULSE 66; RESP 16; TEMP 98.2; O2SAT 99
[2017-06-02] MEDS: CARBIDOPA/LEVODOPA 25 MG/100 MG TAB PO SCH ×3 (06:48→20:28)
[2017-06-02] MEDS: LEVOTHYROXINE SODIUM 25 MCG TAB PO SCH (06:48)
[2017-06-02] MEDS: NICOTINE 21 MG/24 HR PATCH T-DERMAL SCH (09:00)
[2017-06-02] MEDS: METOPROLOL TARTRATE 25 MG TAB PO SCH ×2 (09:00→20:26)
[2017-06-02] MEDS: ASPIRIN 81 MG CHEW TAB CHEW SCH (10:32)
[2017-06-02] MEDS: PRAVASTATIN SOD 40 MG TAB PO SCH (10:32)
[2017-06-02] MEDS: NITROFURANTOIN MONOHYD MACROCR 100 MG CAP PO SCH ×2 (10:32→17:27)
[2017-06-02] MEDS: PANTOPRAZOLE SOD 40 MG DELAYED RELEASE TAB PO SCH (10:33)
[2017-06-02] MEDS: VALPROIC ACID 250 MG CAP PO SCH ×2 (10:33→20:28)
[2017-06-02] MEDS: CLOPIDOGREL 75 MG TAB PO SCH (10:33)
[2017-06-02] MEDS: FERROUS SULFATE 325 MG (65 MG ELEMENTAL IRON) TAB PO SCH (10:34)
--- NOTE | 2017-06-02 11:02 | HHI.PYPN ---
Subjective Remarks Patient seen for follow-up, chart reviewed. Discussion when she staff reported the patient had bowel movement last evening, continues to ask for eyedrops which she states have been receiving at home. Patient found sitting in hospital bed, cooperative. Patient states that she is feeling "pretty good", reports sleeping well, but that is report that she was feeling sad yesterday because she "lost her adoptive son in court about 1-2 days ago" as well as reports seeing "black worms" and paper bags in her room. Patient denies any physical symptoms at this time. Patient noted to be slightly confused. She expresses to be discharged to a safe environment. Review of Systems Except as stated in HPI: all other systems reviewed are Neg Mental Status Examination Appearance: Appropriate Consciousness: Alert Orientation: Person Speech: Unremarkable, Slow Language: Adequate Fund of Knowledge: Inadequate Attention and Concentration: Inadequate Memory: Impaired Mood: Appropriate Affect: Blunt Thought Process & Associations: Goal directed, Linear Thought Content: Appropriate, Other Hallucination Type: Visual (black worms) Delusion Type: None Suicidal Ideation: No Suicidal Plan: No Suicidal Intention: No Homicidal Ideation: No Homicidal Plan: No Homicidal Intention: No Insight: Poor Judgment: Poor Results Labs Labs reviewed Date/Time Source Procedure Growth Status 05/27/17 01:32 Urine Clean Catch Urine Culture - Final Escherichia Coli Complete Vitals/IOs Vital Signs Date Time Temp Pulse Resp B/P (MAP) Pulse Ox O2 Delivery O2 Flow Rate FiO2 06/02/17 05:59 98.2 66 16 117/61 (79) 99 Intake and Output 06/02/17 06/02/17 06/03/17 08:00 16:00 00:00 Intake Total 240 ml Balance 240 ml Assessment & Plan Problem List: (1) Schizophrenia ICD Codes: F20.9 - Schizophrenia, unspecified Assessment & Plan Patient at this time continues to be noted to confused at times reporting events that have not occurred (e.g. having lost adopted son in court), and reporting occasional visual hallucinations. Patient tolerating medications well continue current treatment. Patient to be discharged to a nursing facility once 1 is acquired. Discharge planning in progress Justification for Cont. Inpt. At risk for further decompensation if at lower level of care Discharge Planning Patient is discharged to a nursing facility once 1 is acquired Seb Collier MD Jun 02, 2017 11:02
[2017-06-02] MEDS: ACETAMINOPHEN 325 MG TAB PO PRN (15:22)
[2017-06-02] MEDS ORDERED: LOPERAMIDE HCL 2 MG CAP PO ONE (17:15)
[2017-06-02 18:08] VITALS: BP 141/67; PULSE 75; RESP 16; TEMP 97; O2SAT 93
[2017-06-02] MEDS: QUEtiapine FUMARATE 25 MG TAB PO SCH (20:26)
[2017-06-02] MEDS: DULoxetine HCl DR 30 MG CAP PO SCH (20:26)
[2017-06-02] MEDS: MONTELUKAST SODIUM 10 MG TAB PO SCH (20:27)
[2017-06-02] MEDS: REMOVE OLD NICODERM (NICOTINE) PATCH T-DERMAL SCH (20:28)
[2017-06-03] MEDS: CARBIDOPA/LEVODOPA 25 MG/100 MG TAB PO SCH ×3 (05:55→22:02)
[2017-06-03] MEDS: LEVOTHYROXINE SODIUM 25 MCG TAB PO SCH (05:55)
[2017-06-03 06:02] VITALS: BP 156/61; PULSE 59; RESP 17; TEMP 98.3; O2SAT 97
[2017-06-03] MEDS: METOPROLOL TARTRATE 25 MG TAB PO SCH ×2 (07:59→22:03)
[2017-06-03] MEDS: NITROFURANTOIN MONOHYD MACROCR 100 MG CAP PO SCH ×2 (07:59→18:00)
[2017-06-03] MEDS: FERROUS SULFATE 325 MG (65 MG ELEMENTAL IRON) TAB PO SCH (07:59)
[2017-06-03] MEDS: ASPIRIN 81 MG CHEW TAB CHEW SCH (07:59)
[2017-06-03] MEDS: VALPROIC ACID 250 MG CAP PO SCH ×2 (07:59→22:04)
[2017-06-03] MEDS: CLOPIDOGREL 75 MG TAB PO SCH (08:00)
[2017-06-03] MEDS: PANTOPRAZOLE SOD 40 MG DELAYED RELEASE TAB PO SCH (08:00)
[2017-06-03] MEDS: NICOTINE 21 MG/24 HR PATCH T-DERMAL SCH (08:00)
[2017-06-03] MEDS: PRAVASTATIN SOD 40 MG TAB PO SCH (08:00)
[2017-06-03] MEDS: ACETAMINOPHEN 325 MG TAB PO PRN (10:16)
--- NOTE | 2017-06-03 10:27 | HHI.PYPN ---
Subjective Remarks Patient seen for follow-up, chart reviewed. Discussion with nursing staff reported the patient was visited by a telesales representative from rehabilitation Center where she was happy about. She continues with episodes of loose stools and was provided loperamide yesterday for the same. Patient found sitting in hospital bed, cooperative today patient states that she ate breakfast is feeling "good" denies any perceptual disturbances of any suicidal homicidal ideations. Patient did recall be visited by a telesales representative from her nursing facility where she was happy about. Patient states that she had a loose stool this morning again and was worried that this was continuous for the past couple of days. Review of Systems Except as stated in HPI: all other systems reviewed are Neg Mental Status Examination Appearance: Appropriate Consciousness: Alert Orientation: Person Speech: Unremarkable, Slow Language: Adequate Fund of Knowledge: Inadequate Attention and Concentration: Inadequate Memory: Impaired Mood: Appropriate Affect: Appropriate Thought Process & Associations: Goal directed, Linear Thought Content: Appropriate Hallucination Type: None Delusion Type: None Suicidal Ideation: No Suicidal Plan: No Suicidal Intention: No Homicidal Ideation: No Homicidal Plan: No Homicidal Intention: No Insight: Poor Judgment: Adequate Results Labs Labs reviewed Date/Time Source Procedure Growth Status 05/27/17 01:32 Urine Clean Catch Urine Culture - Final Escherichia Coli Complete Vitals/IOs Vital Signs Date Time Temp Pulse Resp B/P (MAP) Pulse Ox O2 Delivery O2 Flow Rate FiO2 06/03/17 06:02 98.3 59 17 156/61 (92) 97 Intake and Output 06/03/17 06/03/17 06/04/17 08:00 16:00 00:00 Intake Total 720 ml 480 ml Balance 720 ml 480 ml Assessment & Plan Problem List: (1) Schizophrenia ICD Codes: F20.9 - Schizophrenia, unspecified Assessment & Plan Patient at this time has not had any behavioral disturbances since admission, asthma, cooperative with staff. Patient tolerating medications well. Patient recent episodes of diarrhea for the past 3 days which when necessary loperamide has not been effective up to now. We'll consult hospitalist for evaluation recommendations for the same. Continue current treatment, discharge planning in progress Justification for Cont. Inpt. At risk for further decompensation if at lower level of care Discharge Planning Patient to be discharged to a nursing facility once 1 is acquired. Seb Collier MD Jun 03, 2017 10:27
[2017-06-03] MEDS: LACTOBACILLUS ACIDOPHILUS TAB PO SCH ×2 (13:00→18:00)
--- NOTE | 2017-06-03 14:56 | HHI.PR ---
Subjective Remarks Reconsulted for diarrhea despite Imodium administration Patient c/o diarrhea daily 2- x daily . Takes Imodium without much improvement No fever or chills. No abd pain at this time. No cp, sob. No suprapubic pain. Objective Vitals Vital Signs Date Time Temp Pulse Resp B/P (MAP) Pulse Ox O2 Delivery O2 Flow Rate FiO2 06/03/17 06:02 98.3 59 17 156/61 (92) 97 06/02/17 18:08 97.0 75 16 141/67 (91) 93 I/O 06/02/17 06/02/17 06/02/17 06/03/17 06/03/17 06/03/17 07:00 15:00 23:00 07:00 15:00 23:00 Intake Total 680 ml 600 ml 720 ml 480 ml Output Total 1 ml Balance 679 ml 600 ml 720 ml 480 ml Intake Oral 680 ml 600 ml 720 ml 480 ml Output Urine Total 1 ml # Voids 3 # Bowel Movements 1 3 Result Diagram: 05/30/17 1514 05/30/17 1514 Imaging Last Impressions Brain MRI 05/28/17 0000 Signed Impressions: Service Date/Time: Sunday, May 28, 2017 14:59 - CONCLUSION: 1. Senescent changes with mild periventricular small vessel ischemic white matter dilatation. 2. No acute abnormality. Specifically, no evidence for acute ischemia/ infarction or mass. Anand Cespedes MD Objective Remarks GENERAL: female sitting , appears in nad. SKIN: No rashes, ecchymoses or lesions. Cool and dry. HEAD: Atraumatic. Normocephalic. No temporal or scalp tenderness. EYES: Pupils equal round and reactive. Extraocular motions intact. No scleral icterus. No injection or drainage. ENT: Nose without bleeding, purulent drainage or septal hematoma. Throat without erythema, tonsillar hypertrophy or exudate. Uvula midline. Airway patent. NECK: Trachea midline. No JVD or lymphadenopathy. Supple, nontender, no meningeal signs. CARDIOVASCULAR: Regular rate and rhythm without murmurs, gallops, or rubs. RESPIRATORY: Clear to auscultation. Breath sounds equal bilaterally. No wheezes , rales, or rhonchi. GASTROINTESTINAL: Abdomen soft, non-tender, nondistended. No hepato-splenomegaly , or palpable masses. No guarding. MUSCULOSKELETAL: Extremities without clubbing, cyanosis, or edema. No joint tenderness, effusion, or edema noted. No calf tenderness. Negative Homans sign bilaterally. NEUROLOGICAL: Oriented only to self. Cranial nerves II through XII intact. Motor and sensory grossly within normal limits. Normal speech. An appropriate insight and judgment. A/P Assessment and Plan 81-year-old female admitted to inpatient psychiatry presents with multiple medical problems. [facility] consulted for medical management. 1. UTI Continue Macrobid for a total of 7 days Urine culture pending 2. Hypokalemia Supplement as need.Monitor and replace. 3. HTN/CAD Continue home aspirin/plavix Continue home Metoprolol 4. DM2 BG well controlled without use on insulin Diabetic diet SSI A1C pending 5. Hypothyroidism Continue home synthroid TSH 2.0 6. Schizophrenia Per Psychiatry 7. Parkinson's disease Per neurology 8. Diarrhea. Check for C diff. On Imodium. Add probiotic. Patient is stable from a medicine perspective. Continue Macrobid for treatment of UTI or a total of 7 days treatment. Now with diarrhea check C diff if positive will start metronidazole 500 mg po tid Will follow along Leonor Helm MD Jun 03, 2017 14:56
[2017-06-03 18:16] VITALS: BP 117/59; PULSE 65; RESP 17; TEMP 97.3; O2SAT 96
[2017-06-03] MEDS: REMOVE OLD NICODERM (NICOTINE) PATCH T-DERMAL SCH (21:00)
[2017-06-03 21:54] LABS: C. DIFF EPI 027 PRESUMPTIVE NEGATIVE (NEGATIVE)
[2017-06-03] MEDS: DULoxetine HCl DR 30 MG CAP PO SCH (22:02)
[2017-06-03] MEDS: MONTELUKAST SODIUM 10 MG TAB PO SCH (22:03)
[2017-06-03] MEDS: QUEtiapine FUMARATE 25 MG TAB PO SCH (22:03)
[2017-06-04 06:19] VITALS: BP 110/59; PULSE 63; RESP 16; TEMP 97.4; O2SAT 97
[2017-06-04] MEDS: CARBIDOPA/LEVODOPA 25 MG/100 MG TAB PO SCH ×3 (06:20→21:49)
[2017-06-04] MEDS: LEVOTHYROXINE SODIUM 25 MCG TAB PO SCH (06:20)
--- NOTE | 2017-06-04 07:42 | HHI.PR ---
Subjective Remarks Cdiff is negative. Patient with intermittent diarrhea. No fever or chills./ No n /v/d/c. She is able to eat. No urinary complaints. Objective Vitals Vital Signs Date Time Temp Pulse Resp B/P (MAP) Pulse Ox O2 Delivery O2 Flow Rate FiO2 06/04/17 06:19 97.4 63 16 110/59 (76) 97 06/03/17 18:16 97.3 65 17 117/59 (78) 96 I/O 06/03/17 06/03/17 06/03/17 06/04/17 06/04/17 06/04/17 07:00 15:00 23:00 07:00 15:00 23:00 Intake Total 720 ml 480 ml 3480 ml 10 ml Output Total 5 ml Balance 720 ml 480 ml 3475 ml 10 ml Intake Oral 720 ml 480 ml 3480 ml 10 ml Stool Total 5 ml # Voids 3 11 2 # Bowel Movements 3 1 Imaging Last Impressions Brain MRI 05/28/17 0000 Signed Impressions: Service Date/Time: Sunday, May 28, 2017 14:59 - CONCLUSION: 1. Senescent changes with mild periventricular small vessel ischemic white matter dilatation. 2. No acute abnormality. Specifically, no evidence for acute ischemia/ infarction or mass. Anand Cespdees MD Objective Remarks GENERAL: female sitting , appears in nad. SKIN: No rashes, ecchymoses or lesions. Cool and dry. HEAD: Atraumatic. Normocephalic. No temporal or scalp tenderness. EYES: Pupils equal round and reactive. Extraocular motions intact. No scleral icterus. No injection or drainage. ENT: Nose without bleeding, purulent drainage or septal hematoma. Throat without erythema, tonsillar hypertrophy or exudate. Uvula midline. Airway patent. NECK: Trachea midline. No JVD or lymphadenopathy. Supple, nontender, no meningeal signs. CARDIOVASCULAR: Regular rate and rhythm without murmurs, gallops, or rubs. RESPIRATORY: Clear to auscultation. Breath sounds equal bilaterally. No wheezes , rales, or rhonchi. GASTROINTESTINAL: Abdomen soft, non-tender, nondistended. No hepato-splenomegaly , or palpable masses. No guarding. MUSCULOSKELETAL: Extremities without clubbing, cyanosis, or edema. No joint tenderness, effusion, or edema noted. No calf tenderness. Negative Homans sign bilaterally. NEUROLOGICAL: Oriented only to self. Cranial nerves II through XII intact. Motor and sensory grossly within normal limits. Normal speech. An appropriate insight and judgment. A/P Assessment and Plan 81-year-old female admitted to inpatient psychiatry presents with multiple medical problems. [facility] consulted for medical management. 1. UTI Continue Macrobid for a total of 7 days Urine culture pending 2. Hypokalemia Supplement as need.Monitor and replace. 3. HTN/CAD Continue home aspirin/plavix Continue home Metoprolol 4. DM2 BG well controlled without use on insulin Diabetic diet SSI A1C pending 5. Hypothyroidism Continue home synthroid TSH 2.0 6. Schizophrenia Per Psychiatry 7. Parkinson's disease Per neurology 8. Diarrhea. C diff. is negative. Increase Imodium. Continue probiotic. Patient is stable from a medicine perspective. Continue Macrobid for treatment of UTI or a total of 7 days treatment. Poss the caus eof diarrhea, C diff is negative, continue immodium and probiotic Will follow along Leonor Helm MD Jun 04, 2017 07:42
--- NOTE | 2017-06-04 08:48 | HHI.PYPN ---
Subjective Remarks Patient seen for follow-up, chart review. Discussion reveals had reported the patient had 1 episode of diarrhea yesterday, and still had been reporting occasional visual hallucinations of snakes and worms. Patient was found lying in hospital bed, cooperative stated her mood as "good" and reports having slept well, continues to report having diarrhea and trying to maintain hydrated for now. Patient denies any visual hallucinations recently denies any auditory hallucinations. Patient patient denies any SI or HI. Patient mentioned that she would like to go to [place] live with her nephew but states feeling okay with been transferred to a nursing facility for now. Review of Systems Except as stated in HPI: all other systems reviewed are Neg Mental Status Examination Appearance: Appropriate Consciousness: Alert Orientation: Person Speech: Unremarkable, Slow Language: Adequate Fund of Knowledge: Inadequate Attention and Concentration: Inadequate Memory: Impaired Mood: Appropriate Affect: Blunt Thought Process & Associations: Goal directed, Linear Thought Content: Appropriate Hallucination Type: Visual (denies today) Delusion Type: None Suicidal Ideation: No Suicidal Plan: No Suicidal Intention: No Homicidal Ideation: No Homicidal Plan: No Homicidal Intention: No Insight: Poor Judgment: Adequate Results Labs Labs reviewed. Test 06/03/17 15:43 Stool C. difficile Toxin (PCR) NEGATIVE Stl C. difficile Toxin Epiderm 027 PRESUMPTIVE NEGATIVE Date/Time Source Procedure Growth Status 05/27/17 01:32 Urine Clean Catch Urine Culture - Final Escherichia Coli Complete Vitals/IOs Vital Signs Date Time Temp Pulse Resp B/P (MAP) Pulse Ox O2 Delivery O2 Flow Rate FiO2 06/04/17 06:19 97.4 63 16 110/59 (76) 97 Intake and Output 06/04/17 06/04/17 06/05/17 08:00 16:00 00:00 Intake Total 10 ml Balance 10 ml Assessment & Plan Problem List: (1) Schizophrenia ICD Codes: F20.9 - Schizophrenia, unspecified Assessment & Plan Patient at this time continues to report occasional visual hallucinations of worms and snakes but denies any interview today. Patient to continue current treatment. Recent diarrhea's followed by medical team which stool sample was sent for C. difficile, pending final results. Continue recommendations as per primary medical team. Discharge planning in progress Justification for Cont. Inpt. At risk for further decompensation if at lower level of care Discharge Planning Patient to be discharged to a nursing facility once she is accepted. Seb Collier MD Jun 04, 2017 08:48
[2017-06-04] MEDS: LACTOBACILLUS ACIDOPHILUS TAB PO SCH ×3 (08:52→18:00)
[2017-06-04] MEDS: NITROFURANTOIN MONOHYD MACROCR 100 MG CAP PO SCH (08:52)
[2017-06-04] MEDS: PANTOPRAZOLE SOD 40 MG DELAYED RELEASE TAB PO SCH (08:52)
[2017-06-04] MEDS: FERROUS SULFATE 325 MG (65 MG ELEMENTAL IRON) TAB PO SCH (08:53)
[2017-06-04] MEDS: CLOPIDOGREL 75 MG TAB PO SCH (08:54)
[2017-06-04] MEDS: METOPROLOL TARTRATE 25 MG TAB PO SCH ×2 (08:54→21:49)
[2017-06-04] MEDS: VALPROIC ACID 250 MG CAP PO SCH ×2 (08:54→21:49)
[2017-06-04] MEDS: ASPIRIN 81 MG CHEW TAB CHEW SCH (08:55)
[2017-06-04] MEDS: PRAVASTATIN SOD 40 MG TAB PO SCH (08:55)
[2017-06-04] MEDS: NICOTINE 21 MG/24 HR PATCH T-DERMAL SCH (09:00)
[2017-06-04] MEDS ORDERED: LOPERAMIDE HCL 2 MG CAP PO ONE (11:00)
[2017-06-04 18:00] VITALS: BP 158/67; PULSE 64; RESP 17; TEMP 98; O2SAT 97
[2017-06-04] MEDS: REMOVE OLD NICODERM (NICOTINE) PATCH T-DERMAL SCH (21:00)
[2017-06-04] MEDS: MONTELUKAST SODIUM 10 MG TAB PO SCH (21:48)
[2017-06-04] MEDS: DULoxetine HCl DR 30 MG CAP PO SCH (21:48)
[2017-06-04] MEDS: QUEtiapine FUMARATE 25 MG TAB PO SCH (21:49)
[2017-06-05 05:54] VITALS: BP_SYST 132; BP_SYST 158; BP_DIAS 58; PULSE 63; RESP 16; TEMP 97.9; O2SAT 97
[2017-06-05] MEDS: CARBIDOPA/LEVODOPA 25 MG/100 MG TAB PO SCH ×3 (06:40→21:58)
[2017-06-05] MEDS: LEVOTHYROXINE SODIUM 25 MCG TAB PO SCH (06:40)
--- NOTE | 2017-06-05 07:48 | HHI.PR ---
Subjective Remarks Feels better. One time diarrhea. No fever or chills.No n/v/d/c. No abd pain. Eating well keeps down food. Objective Vitals Vital Signs Date Time Temp Pulse Resp B/P (MAP) Pulse Ox O2 Delivery O2 Flow Rate FiO2 06/05/17 05:54 97.9 63 16 132/58 (82) 97 158/ 06/04/17 18:00 98.0 64 17 158/67 (97) 97 158/ I/O 06/04/17 06/04/17 06/04/17 06/05/17 06/05/17 06/05/17 07:00 15:00 23:00 07:00 15:00 23:00 Intake Total 10 ml 480 ml 120 ml Balance 10 ml 480 ml 120 ml Intake Oral 10 ml 480 ml 120 ml # Voids 2 3 1 # Bowel Movements 1 1 Objective Remarks GENERAL: female sitting , appears in nad. SKIN: No rashes, ecchymoses or lesions. Cool and dry. HEAD: Atraumatic. Normocephalic. No temporal or scalp tenderness. EYES: Pupils equal round and reactive. Extraocular motions intact. No scleral icterus. No injection or drainage. ENT: Nose without bleeding, purulent drainage or septal hematoma. Throat without erythema, tonsillar hypertrophy or exudate. Uvula midline. Airway patent. NECK: Trachea midline. No JVD or lymphadenopathy. Supple, nontender, no meningeal signs. CARDIOVASCULAR: Regular rate and rhythm without murmurs, gallops, or rubs. RESPIRATORY: Clear to auscultation. Breath sounds equal bilaterally. No wheezes , rales, or rhonchi. GASTROINTESTINAL: Abdomen soft, non-tender, nondistended. No hepato-splenomegaly , or palpable masses. No guarding. MUSCULOSKELETAL: Extremities without clubbing, cyanosis, or edema. No joint tenderness, effusion, or edema noted. No calf tenderness. Negative Homans sign bilaterally. NEUROLOGICAL: Oriented only to self. Cranial nerves II through XII intact. Motor and sensory grossly within normal limits. Normal speech. An appropriate insight and judgment. A/P Assessment and Plan 81-year-old female admitted to inpatient psychiatry presents with multiple medical problems. [facility] consulted for medical management. 1. UTI Continue Macrobid for a total of 7 days Urine culture pending 2. Hypokalemia Supplement as need.Monitor and replace. 3. HTN/CAD Continue home aspirin/plavix Continue home Metoprolol 4. DM2 BG well controlled without use on insulin Diabetic diet SSI A1C pending 5. Hypothyroidism Continue home synthroid TSH 2.0 6. Schizophrenia Per Psychiatry 7. Parkinson's disease Per neurology 8. Diarrhea. C diff. is negative. Increase Imodium. Continue probiotic. Patient is stable from a medicine perspective. Continue Macrobid for treatment of UTI or a total of 7 days treatment. Poss the caus eof diarrhea, C diff is negative, continue immodium and probiotic Will follow along Leonor Helm MD Jun 05, 2017 07:48
[2017-06-05] MEDS: PANTOPRAZOLE SOD 40 MG DELAYED RELEASE TAB PO SCH (09:00)
[2017-06-05] MEDS: NICOTINE 21 MG/24 HR PATCH T-DERMAL SCH (09:00)
[2017-06-05] MEDS: LACTOBACILLUS ACIDOPHILUS TAB PO SCH ×3 (09:00→18:00)
[2017-06-05] MEDS: PRAVASTATIN SOD 40 MG TAB PO SCH (10:31)
[2017-06-05] MEDS: VALPROIC ACID 250 MG CAP PO SCH ×2 (10:31→21:59)
[2017-06-05] MEDS: FERROUS SULFATE 325 MG (65 MG ELEMENTAL IRON) TAB PO SCH (10:32)
[2017-06-05] MEDS: ASPIRIN 81 MG CHEW TAB CHEW SCH (10:32)
[2017-06-05] MEDS: METOPROLOL TARTRATE 25 MG TAB PO SCH ×3 (10:32→21:59)
[2017-06-05] MEDS: CLOPIDOGREL 75 MG TAB PO SCH (10:32)
--- NOTE | 2017-06-05 11:19 | HHI.PYPN ---
Subjective Remarks Patient seen for follow-up, chart review. Discussion she staff reported the patient is eating well with no behavioral disturbances. Patient states that she had been continuously having loose stool about 3 episodes of diarrhea today. Patient denies any visual or auditory hallucinations. Patient states that she had received a call from her granddaughter who she did not want to talk to but this did with her sister who was requesting her daughter to reach out and communicate with her. Patient noted to be in good spirits today patient states that she "woke up with a clear mind". Review of Systems Except as stated in HPI: all other systems reviewed are Neg Mental Status Examination Appearance: Appropriate Consciousness: Alert Orientation: Person Speech: Unremarkable, Slow Language: Adequate Fund of Knowledge: Inadequate Attention and Concentration: Inadequate Memory: Impaired Mood: Appropriate Affect: Appropriate Thought Process & Associations: Goal directed, Linear Thought Content: Appropriate Hallucination Type: None Delusion Type: None Suicidal Ideation: No Suicidal Plan: No Suicidal Intention: No Homicidal Ideation: No Homicidal Plan: No Homicidal Intention: No Insight: Fair Judgment: Adequate Results Labs Labs reviewed. Date/Time Source Procedure Growth Status 05/27/17 01:32 Urine Clean Catch Urine Culture - Final Escherichia Coli Complete Vitals/IOs Vital Signs Date Time Temp Pulse Resp B/P (MAP) Pulse Ox O2 Delivery O2 Flow Rate FiO2 06/05/17 05:54 97.9 63 16 132/58 (82) 97 158/ Intake and Output 06/05/17 06/05/17 06/06/17 08:00 16:00 00:00 Intake Total 360 ml Balance 360 ml Assessment & Plan Problem List: (1) Schizophrenia ICD Codes: F20.9 - Schizophrenia, unspecified Assessment & Plan Patient at this time denies any perceptual disturbances, noted to be in adequate mood. Patient's to continue current treatment and waiting acceptance into senior living placement this patient is likely not able to return home. Continue recommendations as per primary medical team. Discharge planning in progress Justification for Cont. Inpt. At risk for further decompensation if at lower level of care Discharge Planning Patient to be discharged to a nursing facility once 1 is acquired Seb Collier MD Jun 05, 2017 11:19
[2017-06-05] MEDS ORDERED: PADIMATE (CHAPSTICK) 4.5 GM TUBE TOPICAL PRN (11:30)
[2017-06-05 17:56] VITALS: BP 114/54; PULSE 59; RESP 16; TEMP 97.4; O2SAT 94
[2017-06-05 18:21] VITALS: BP 114/54; PULSE 59; RESP 16; TEMP 97.4; O2SAT 94
[2017-06-05] MEDS: REMOVE OLD NICODERM (NICOTINE) PATCH T-DERMAL SCH (21:00)
[2017-06-05] MEDS: MONTELUKAST SODIUM 10 MG TAB PO SCH (21:58)
[2017-06-05] MEDS: DULoxetine HCl DR 30 MG CAP PO SCH (21:58)
[2017-06-05] MEDS: QUEtiapine FUMARATE 25 MG TAB PO SCH (21:59)
[2017-06-06 05:55] VITALS: BP 114/73; PULSE 78; RESP 17; TEMP 97.6; O2SAT 96
[2017-06-06] MEDS: CARBIDOPA/LEVODOPA 25 MG/100 MG TAB PO SCH ×3 (06:17→21:32)
[2017-06-06] MEDS: LEVOTHYROXINE SODIUM 25 MCG TAB PO SCH (06:17)
[2017-06-06] MEDS: NICOTINE 21 MG/24 HR PATCH T-DERMAL SCH (09:00)
--- NOTE | 2017-06-06 10:03 | HHI.PR ---
Subjective Remarks Did not have a BM yet. No abd pain . No fever or chills. Feels improving. Eating better. Objective Vitals Vital Signs Date Time Temp Pulse Resp B/P (MAP) Pulse Ox O2 Delivery O2 Flow Rate FiO2 06/06/17 05:55 97.6 78 17 114/73 (87) 96 06/05/17 18:21 97.4 59 16 114/54 (74) 94 06/05/17 17:56 97.4 59 16 114/54 (74) 94 I/O 06/05/17 06/05/17 06/05/17 06/06/17 06/06/17 06/06/17 07:00 15:00 23:00 07:00 15:00 23:00 Intake Total 120 ml 480 ml 1440 ml 700 ml 360 ml Balance 120 ml 480 ml 1440 ml 700 ml 360 ml Intake Oral 120 ml 480 ml 1440 ml 700 ml 360 ml # Voids 1 2 3 # Bowel Movements 1 4 Imaging Last Impressions Brain MRI 05/28/17 0000 Signed Impressions: Service Date/Time: Sunday, May 28, 2017 14:59 - CONCLUSION: 1. Senescent changes with mild periventricular small vessel ischemic white matter dilatation. 2. No acute abnormality. Specifically, no evidence for acute ischemia/ infarction or mass. Anand Cespedes MD Objective Remarks GENERAL: female sitting , appears in nad. SKIN: No rashes, ecchymoses or lesions. Cool and dry. HEAD: Atraumatic. Normocephalic. No temporal or scalp tenderness. EYES: Pupils equal round and reactive. Extraocular motions intact. No scleral icterus. No injection or drainage. ENT: Nose without bleeding, purulent drainage or septal hematoma. Throat without erythema, tonsillar hypertrophy or exudate. Uvula midline. Airway patent. NECK: Trachea midline. No JVD or lymphadenopathy. Supple, nontender, no meningeal signs. CARDIOVASCULAR: Regular rate and rhythm without murmurs, gallops, or rubs. RESPIRATORY: Clear to auscultation. Breath sounds equal bilaterally. No wheezes , rales, or rhonchi. GASTROINTESTINAL: Abdomen soft, non-tender, nondistended. No hepato-splenomegaly , or palpable masses. No guarding. MUSCULOSKELETAL: Extremities without clubbing, cyanosis, or edema. No joint tenderness, effusion, or edema noted. No calf tenderness. Negative Homans sign bilaterally. NEUROLOGICAL: Oriented only to self. Cranial nerves II through XII intact. Motor and sensory grossly within normal limits. Normal speech. An appropriate insight and judgment. A/P Assessment and Plan 81-year-old female admitted to inpatient psychiatry presents with multiple medical problems. [facility] consulted for medical management. 1. UTI with E Coli Treated with Macrobid for a total of 7 days Urine culture E coli 2. Hypokalemia Supplement as need.Monitor and replace. 3. HTN/CAD Continue home aspirin/plavix Continue home Metoprolol 4. DM2 BG well controlled without use on insulin Diabetic diet SSI A1C pending 5. Hypothyroidism Continue home synthroid TSH 2.0 6. Schizophrenia Per Psychiatry 7. Parkinson's disease Per neurology 8. Diarrhea. C diff. is negative. Increase Imodium. Continue probiotic. Patient is stable from a medicine perspective. Finished Macrobid for treatment of UTI or a total of 7 days treatment. C diff is negative, continue Imodium and probiotic Will follow along Leonor Helm MD Jun 06, 2017 10:03
[2017-06-06] MEDS: METOPROLOL TARTRATE 25 MG TAB PO SCH ×2 (11:34→21:32)
[2017-06-06] MEDS: LACTOBACILLUS ACIDOPHILUS TAB PO SCH ×3 (11:34→18:00)
[2017-06-06] MEDS: FERROUS SULFATE 325 MG (65 MG ELEMENTAL IRON) TAB PO SCH (11:35)
[2017-06-06] MEDS: PANTOPRAZOLE SOD 40 MG DELAYED RELEASE TAB PO SCH (11:36)
[2017-06-06] MEDS: VALPROIC ACID 250 MG CAP PO SCH ×2 (11:36→21:32)
[2017-06-06] MEDS: CLOPIDOGREL 75 MG TAB PO SCH (11:36)
[2017-06-06] MEDS: PRAVASTATIN SOD 40 MG TAB PO SCH (11:36)
[2017-06-06] MEDS: ASPIRIN 81 MG CHEW TAB CHEW SCH (11:40)
--- NOTE | 2017-06-06 15:26 | HHI.PYPN ---
Subjective Remarks Patient seen for follow-up, chart reviewed. Discussion she staff reported the patient is sleeping well with no reported visual hallucinations. Patient found lying in hospital bed, cooperative. Patient states that she had been feeling "good" denies any visual hallucinations of snakes were worms states that she continues to have some loose stools but no pain. Patient denies any SI, HI, auditory hallucinations or delusions. Review of Systems Except as stated in HPI: all other systems reviewed are Neg Mental Status Examination Appearance: Appropriate Consciousness: Alert Orientation: Person Speech: Unremarkable, Slow Language: Adequate Fund of Knowledge: Inadequate Attention and Concentration: Inadequate Memory: Impaired Mood: Appropriate Affect: Appropriate Thought Process & Associations: Goal directed, Linear Thought Content: Appropriate Hallucination Type: None Delusion Type: None Suicidal Ideation: No Suicidal Plan: No Suicidal Intention: No Homicidal Ideation: No Homicidal Plan: No Homicidal Intention: No Insight: Fair Judgment: Adequate Results Labs Labs reviewed. Date/Time Source Procedure Growth Status 05/27/17 01:32 Urine Clean Catch Urine Culture - Final Escherichia Coli Complete Vitals/IOs Vital Signs Date Time Temp Pulse Resp B/P (MAP) Pulse Ox O2 Delivery O2 Flow Rate FiO2 06/06/17 05:55 97.6 78 17 114/73 (87) 96 Intake and Output 06/06/17 06/06/17 06/06/17 07:59 15:59 23:59 Intake Total 480 ml 600 ml Balance 480 ml 600 ml Assessment & Plan Problem List: (1) Schizophrenia ICD Codes: F20.9 - Schizophrenia, unspecified Assessment & Plan Patient at this time has not had a behavioral disturbances since admission, however, cooperative with staff, tolerate medications well the longer endorsing any visual hallucinations, patient to continue current treatment. Continue recommendations as per primary medical team. Discharge planning in progress Justification for Cont. Inpt. At risk for further decompensation event lower level of care Discharge Planning Patient to be discharged to residential facility once she is accepted. Seb Collier MD Jun 06, 2017 15:26
[2017-06-06 18:00] VITALS: BP 116/61; PULSE 67; RESP 18; TEMP 98.4; O2SAT 94
[2017-06-06] MEDS: REMOVE OLD NICODERM (NICOTINE) PATCH T-DERMAL SCH (21:00)
[2017-06-06] MEDS: QUEtiapine FUMARATE 25 MG TAB PO SCH (21:31)
[2017-06-06] MEDS: DULoxetine HCl DR 30 MG CAP PO SCH (21:32)
[2017-06-06] MEDS: MONTELUKAST SODIUM 10 MG TAB PO SCH (21:32)
[2017-06-07] MEDS: CARBIDOPA/LEVODOPA 25 MG/100 MG TAB PO SCH ×3 (07:05→20:33)
[2017-06-07] MEDS: LEVOTHYROXINE SODIUM 25 MCG TAB PO SCH (07:05)
[2017-06-07] MEDS: ACETAMINOPHEN 325 MG TAB PO PRN ×2 (07:06→15:15)
[2017-06-07] MEDS: PRAVASTATIN SOD 40 MG TAB PO SCH (09:55)
[2017-06-07] MEDS: ASPIRIN 81 MG CHEW TAB CHEW SCH (09:55)
[2017-06-07] MEDS: CLOPIDOGREL 75 MG TAB PO SCH (09:55)
[2017-06-07] MEDS: LACTOBACILLUS ACIDOPHILUS TAB PO SCH ×3 (09:55→17:21)
[2017-06-07] MEDS: PANTOPRAZOLE SOD 40 MG DELAYED RELEASE TAB PO SCH (09:55)
[2017-06-07] MEDS: FERROUS SULFATE 325 MG (65 MG ELEMENTAL IRON) TAB PO SCH (09:55)
[2017-06-07] MEDS: VALPROIC ACID 250 MG CAP PO SCH ×2 (09:55→20:34)
[2017-06-07] MEDS: METOPROLOL TARTRATE 25 MG TAB PO SCH ×2 (09:55→20:34)
[2017-06-07 10:30] LABS: AUTOMATED NEUTROPHIL # 3.6 TH/MM3 (1.8-7.7); BASOPHIL % 0.5 % (0.0-2.0); EOSINOPHIL # 0.1 TH/MM3 (0-0.4); EOSINOPHIL % 1.7 % (0.0-4.0); HEMO FLAGS DIFF FINAL; LYMPH % 37.4 % (9.0-44.0); LYMPHOCYTE # 2.5 TH/MM3 (1.0-4.8); MEAN CORPUSCULAR HEMOGLOBIN 31.6 PG (27.0-34.0); MEAN CORPUSCULAR HGB CONC 33.3 % (32.0-36.0); MONO % 5.7 % (0.0-8.0); NEUT % 54.7 % (16.0-70.0); PLATELET COUNT 195 TH/MM3 (150-450); RED BLOOD COUNT 4.21 MIL/MM3 (4.00-5.30); RED CELL DISTRIBUTION WIDTH 14.3 % (11.6-17.2); WHITE BLOOD COUNT 6.7 TH/MM3 (4.0-11.0)
[2017-06-07 10:42] LABS: POTASSIUM 3.9 MEQ/L (3.5-5.1)
--- NOTE | 2017-06-07 11:03 | HHI.PR ---
Subjective Remarks reports diarrhea constantly denies urine symptoms reports pain in RLQ pain, but there all the time- a month ago Objective Vital Signs Date Time Temp Pulse Resp B/P (MAP) Pulse Ox O2 Delivery O2 Flow Rate FiO2 06/06/17 18:00 98.4 67 18 116/61 (79) 94 I/O 06/06/17 06/06/17 06/06/17 06/07/17 06/07/17 06/07/17 07:00 15:00 23:00 07:00 15:00 23:00 Intake Total 700 ml 960 ml 960 ml 0 ml 240 ml Balance 700 ml 960 ml 960 ml 0 ml 240 ml Intake Oral 700 ml 960 ml 960 ml 0 ml 240 ml # Voids 3 4 1 1 # Bowel Movements 4 1 Result Diagram: 06/07/17 0935 06/07/17 0935 Objective Remarks Awake alert. Very pleasant lady. However plans to speak nonstop on other issues related to her family. Reports she still has diarrhea. Noted acute distress. Heart rate is regular, no murmur appreciated. Lungs sounds are decreased bilaterally. No wheezing or rales. Abdomen is soft and nontender. No rebound. No guarding. Bilateral lower extremity no calf asymmetry. Moving all 4 limbs. However does have better range of motion and seems to be mostly in bed. Medications and IVs Reviewed A/P Assessment and Plan Impression: diarrhea hyokalmeia acute kidney injury recent ecoli uti was treated with macrobid for 7 days which she completed first week of May. Repeat UA is positive again. Cultures pending. Comorbid conditions: Hypertension CAD Diabetes. Resume sliding scale coverage. Hypothyroidism Schizophrenia Parkinson's disease Likely underlying dementia. Patient reports that she used to be on Exelon patch and she is wondering why she is not on it now. We'll check with her pharmacy and her psychiatrist to determine whether to resume this or not. History of macular degeneration. Nursing to find out patient's eyedrops name and doses and will resume. Plan: po fluids encourage hypokalmeia improved Free water by mouth. Will follow renal function every 3 days or so. Once urine culture is positive, would need to start patient on antibiotics. We'll send C. difficile toxin as well. Continue rest of her meds. DVT prophylaxis. Start patient on heparin as patient is not ambulating much. PT consult. Shaun Valdivia MD Jun 07, 2017 11:03
[2017-06-07 13:01] LABS: BACTERIA, URINE FEW /hpf; BLOOD, URINE TRACE (NEG); GLUCOSE,URINE NEG (NEG); HYALINE CAST, URINE 6 /lpf (RARE); KETONE, URINE NEG (NEG); MUCUS URINE FEW /lpf (OCC); NITRITE,URINE NEG (NEG); TRANSITIONAL EPI CELLS, URINE <1 /hpf; URINE COLOR YELLOW (YELLW/STRAW)
[2017-06-07 13:09] LABS: COMMENT (UR) CATH-CULTURE IND; CULTURE IF INDICATED CATH CULTURE IND
--- NOTE | 2017-06-07 14:09 | HHI.PYPN ---
Subjective Remarks Patient seen for follow-up, chart reviewed. Discussion she staff reported that patient have any difficulties or changes. Patient found lying in hospital bed, cooperative interview patient states that she is feeling "good" denies having any visual hallucinations of snakes or worms for the past couple of days. Patient states that time she feels wet and likely highly having incontinence of urine which nursing staff have been very helpful with. Patient states that she is just waiting to be able to go to her new residence. Review of Systems Except as stated in HPI: all other systems reviewed are Neg Mental Status Examination Appearance: Appropriate Consciousness: Alert Orientation: Person Speech: Unremarkable, Slow Language: Adequate Fund of Knowledge: Inadequate Attention and Concentration: Inadequate Memory: Impaired Mood: Appropriate Affect: Appropriate Thought Process & Associations: Goal directed, Linear Thought Content: Appropriate Hallucination Type: None Delusion Type: None Suicidal Ideation: No Suicidal Plan: No Suicidal Intention: No Homicidal Ideation: No Homicidal Plan: No Homicidal Intention: No Insight: Fair Judgment: Adequate Results Labs Labs reviewed. Test 06/07/17 09:35 06/07/17 12:30 White Blood Count 6.7 TH/MM3 Red Blood Count 4.21 MIL/MM3 Hemoglobin 13.3 GM/DL Hematocrit 40.0 % Mean Corpuscular Volume 95.0 FL Mean Corpuscular Hemoglobin 31.6 PG Mean Corpuscular Hemoglobin Concent 33.3 % Red Cell Distribution Width 14.3 % Platelet Count 195 TH/MM3 Mean Platelet Volume 9.7 FL Neutrophils (%) (Auto) 54.7 % Lymphocytes (%) (Auto) 37.4 % Monocytes (%) (Auto) 5.7 % Eosinophils (%) (Auto) 1.7 % Basophils (%) (Auto) 0.5 % Neutrophils # (Auto) 3.6 TH/MM3 Lymphocytes # (Auto) 2.5 TH/MM3 Monocytes # (Auto) 0.4 TH/MM3 Eosinophils # (Auto) 0.1 TH/MM3 Basophils # (Auto) 0.0 TH/MM3 CBC Comment DIFF FINAL Differential Comment Blood Urea Nitrogen 28 MG/DL Creatinine 1.41 MG/DL Random Glucose 166 MG/DL Calcium Level 9.1 MG/DL Sodium Level 138 MEQ/L Potassium Level 3.9 MEQ/L Chloride Level 107 MEQ/L Carbon Dioxide Level 20.0 MEQ/L Anion Gap 11 MEQ/L Estimat Glomerular Filtration Rate 36 ML/MIN Urine Color YELLOW Urine Turbidity CLEAR Urine pH 6.0 Urine Specific [place] 1.025 Urine Protein TRACE mg/dL Urine Glucose (UA) NEG mg/dL Urine Ketones NEG mg/dL Urine Occult Blood TRACE Urine Nitrite NEG Urine Bilirubin NEG Urine Urobilinogen 2.0 MG/DL Urine Leukocyte Esterase LARGE Urine RBC 10 /hpf Urine WBC 75 /hpf Urine WBC Clumps RARE Urine Transitional Epithelial Cells <1 /hpf Urine Bacteria FEW /hpf Urine Hyaline Casts 6 /lpf Urine Mucus FEW /lpf Microscopic Urinalysis Comment CATH-CULTURE IND Date/Time Source Procedure Growth Status 06/07/17 12:30 Urine Catheterized Urine Urine Culture Pending Received Vitals/IOs Vital Signs Date Time Temp Pulse Resp B/P (MAP) Pulse Ox O2 Delivery O2 Flow Rate FiO2 06/06/17 18:00 98.4 67 18 116/61 (79) 94 Intake and Output 06/07/17 06/07/17 06/08/17 08:00 16:00 00:00 Intake Total 0 ml 480 ml Balance 0 ml 480 ml Assessment & Plan Problem List: (1) Schizophrenia ICD Codes: F20.9 - Schizophrenia, unspecified Assessment & Plan Patient at this time has not had any behavioral disturbances since admission has been calm and cooperative with staff. Patient no longer endorsing any paranoid delusions nor any visual hallucinations. Patient responding well to current treatment. Continue current treatment. Continue recommendations as per primary medical team. Discharge planning in progress Justification for Cont. Inpt. At risk for further decompensation if at lower level of care Discharge Planning Patient to be transported to a nursing facility once accepted Seb Collier MD Jun 07, 2017 14:09
[2017-06-07 17:57] VITALS: BP 133/63; PULSE 68; RESP 16; TEMP 97.6; O2SAT 97
[2017-06-07] MEDS: QUEtiapine FUMARATE 25 MG TAB PO SCH (20:33)
[2017-06-07] MEDS: MONTELUKAST SODIUM 10 MG TAB PO SCH (20:33)
[2017-06-07] MEDS: DULoxetine HCl DR 30 MG CAP PO SCH (20:33)
[2017-06-07] MEDS: LORazepam 0.5 MG TAB PO PRN (20:34)
[2017-06-08] MEDS: CARBIDOPA/LEVODOPA 25 MG/100 MG TAB PO SCH ×3 (05:46→20:56)
[2017-06-08] MEDS: LEVOTHYROXINE SODIUM 25 MCG TAB PO SCH (05:46)
[2017-06-08 05:56] VITALS: BP 140/63; PULSE 61; RESP 18; TEMP 98.3; O2SAT 97
[2017-06-08] MEDS: METOPROLOL TARTRATE 25 MG TAB PO SCH ×2 (08:19→20:55)
[2017-06-08] MEDS: LACTOBACILLUS ACIDOPHILUS TAB PO SCH ×3 (08:19→17:33)
[2017-06-08] MEDS: CLOPIDOGREL 75 MG TAB PO SCH (08:19)
[2017-06-08] MEDS: PRAVASTATIN SOD 40 MG TAB PO SCH (08:19)
[2017-06-08] MEDS: FERROUS SULFATE 325 MG (65 MG ELEMENTAL IRON) TAB PO SCH (08:19)
[2017-06-08] MEDS: VALPROIC ACID 250 MG CAP PO SCH ×2 (08:19→20:55)
[2017-06-08] MEDS: PANTOPRAZOLE SOD 40 MG DELAYED RELEASE TAB PO SCH (08:19)
[2017-06-08] MEDS: ASPIRIN 81 MG CHEW TAB CHEW SCH (08:19)
--- NOTE | 2017-06-08 09:29 | HHI.PR ---
Subjective Remarks said diarrhea not getting better had to clean her up from head to toe last night because of diarrhea kidney function not well no burnign or pain on urination no fever Objective Vital Signs Date Time Temp Pulse Resp B/P (MAP) Pulse Ox O2 Delivery O2 Flow Rate FiO2 06/08/17 05:56 98.3 61 18 140/63 (88) 97 06/07/17 17:57 97.6 68 16 133/63 (86) 97 I/O 06/07/17 06/07/17 06/07/17 06/08/17 06/08/17 06/08/17 07:00 15:00 23:00 07:00 15:00 23:00 Intake Total 0 ml 480 ml 480 ml 0 ml 480 ml Balance 0 ml 480 ml 480 ml 0 ml 480 ml Intake Oral 0 ml 480 ml 480 ml 0 ml 480 ml # Voids 1 2 1 # Bowel Movements 1 1 Result Diagram: 06/07/17 0935 06/07/17 0935 A/P Assessment and Plan Impression: diarrhea hyokalmeia acute kidney injury recent ecoli uti was treated with macrobid - repeat UA dirty, cx pending macular degeneration Comorbid conditions: Hypertension CAD Diabetes. Resume sliding scale coverage. Hypothyroidism Schizophrenia Parkinson's disease Likely underlying dementia. Patient reports that she used to be on Exelon patch and she is wondering why she is not on it now. We'll check with her pharmacy and her psychiatrist to determine whether to resume this or not. History of macular degeneration. Nursing to find out patient's eyedrops name and doses and will resume. Plan: po fluids encourage hypokalmeia improved Free water by mouth. Will follow renal function every 3 days or so. Once urine culture is positive, would need to start patient on antibiotics. We'll send C. difficile toxin as well. Continue rest of her meds. DVT prophylaxis. Start patient on heparin as patient is not ambulating much. PT consult. Discharge Planning per psychiatry Shaun Valdivia MD Jun 08, 2017 09:29
--- NOTE | 2017-06-08 09:38 | HHI.PYPN ---
Subjective Remarks Patient seen for follow-up, chart reviewed. Patient found lying on hospital bed calm and cooperative. Patient patient states she is feeling "so good" reports sleeping well, denies any difficulty with eating or drinking, has not had any behavioral disturbances since admission has been, cooperative with staff and pleasant. Patient denies any perceptual disturbances at this time. Patient continues to noted to have some loose stools which samples were taking to lab for testing for C. difficile. Review of Systems Except as stated in HPI: all other systems reviewed are Neg Mental Status Examination Appearance: Appropriate Consciousness: Alert Orientation: Person Speech: Unremarkable, Slow Language: Adequate Fund of Knowledge: Inadequate Attention and Concentration: Inadequate Memory: Impaired Mood: Appropriate Affect: Appropriate Thought Process & Associations: Goal directed, Linear Thought Content: Appropriate Hallucination Type: None Delusion Type: None Suicidal Ideation: No Suicidal Plan: No Suicidal Intention: No Homicidal Ideation: No Homicidal Plan: No Homicidal Intention: No Insight: Fair Judgment: Adequate Results Labs Labs reviewed Test 06/07/17 09:35 06/07/17 12:30 White Blood Count 6.7 TH/MM3 Red Blood Count 4.21 MIL/MM3 Hemoglobin 13.3 GM/DL Hematocrit 40.0 % Mean Corpuscular Volume 95.0 FL Mean Corpuscular Hemoglobin 31.6 PG Mean Corpuscular Hemoglobin Concent 33.3 % Red Cell Distribution Width 14.3 % Platelet Count 195 TH/MM3 Mean Platelet Volume 9.7 FL Neutrophils (%) (Auto) 54.7 % Lymphocytes (%) (Auto) 37.4 % Monocytes (%) (Auto) 5.7 % Eosinophils (%) (Auto) 1.7 % Basophils (%) (Auto) 0.5 % Neutrophils # (Auto) 3.6 TH/MM3 Lymphocytes # (Auto) 2.5 TH/MM3 Monocytes # (Auto) 0.4 TH/MM3 Eosinophils # (Auto) 0.1 TH/MM3 Basophils # (Auto) 0.0 TH/MM3 CBC Comment DIFF FINAL Differential Comment Blood Urea Nitrogen 28 MG/DL Creatinine 1.41 MG/DL Random Glucose 166 MG/DL Calcium Level 9.1 MG/DL Sodium Level 138 MEQ/L Potassium Level 3.9 MEQ/L Chloride Level 107 MEQ/L Carbon Dioxide Level 20.0 MEQ/L Anion Gap 11 MEQ/L Estimat Glomerular Filtration Rate 36 ML/MIN Urine Color YELLOW Urine Turbidity CLEAR Urine pH 6.0 Urine Specific [place] 1.025 Urine Protein TRACE mg/dL Urine Glucose (UA) NEG mg/dL Urine Ketones NEG mg/dL Urine Occult Blood TRACE Urine Nitrite NEG Urine Bilirubin NEG Urine Urobilinogen 2.0 MG/DL Urine Leukocyte Esterase LARGE Urine RBC 10 /hpf Urine WBC 75 /hpf Urine WBC Clumps RARE Urine Transitional Epithelial Cells <1 /hpf Urine Bacteria FEW /hpf Urine Hyaline Casts 6 /lpf Urine Mucus FEW /lpf Microscopic Urinalysis Comment CATH-CULTURE IND Date/Time Source Procedure Growth Status 06/07/17 16:30 Stool Stool Pending Received 06/07/17 12:30 Urine Catheterized Urine Urine Culture Pending Received Vitals/IOs Vital Signs Date Time Temp Pulse Resp B/P (MAP) Pulse Ox O2 Delivery O2 Flow Rate FiO2 06/08/17 05:56 98.3 61 18 140/63 (88) 97 Intake and Output 06/08/17 06/08/17 06/09/17 08:00 16:00 00:00 Intake Total 480 ml Balance 480 ml Assessment & Plan Problem List: (1) Schizophrenia ICD Codes: F20.9 - Schizophrenia, unspecified Assessment & Plan Patient at this time has not had any behavioral disturbances since admission has been, cooperative and pleasant with staff. Patient compliant with treatment. Patient currently has acute kidney injury noted by lab results, as well as pending urine and stool cultures due to continuous episodes of loose stools. Continue recommendations and management as per primary medical team. Continue current treatment. Discharge planning in progress Justification for Cont. Inpt. At risk for further decompensation if at lower level of care Discharge Planning Patient to be transferred to a nursing facility once 1 is accepted. Seb Collier MD Jun 08, 2017 09:38
[2017-06-08] MEDS ORDERED: TRAV0.00 EACH EYE (10:48)
[2017-06-08] MEDS ORDERED: RIVA9.5T T-DERMAL (10:53)
[2017-06-08] MEDS: FREE WATER PO SCH ×3 (11:30→20:00)
--- NOTE | 2017-06-08 12:10 | PD.TTN ---
Patient Problems 1. Discharge planning 2. Medication compliance 3. Knowledge deficit 4. Lack of coping skills Progress Toward Goals Provider Present: Dr. Corby Collier Provider Input: 06/08/2017 patient is stable, medication will be assess for needed adjustment 06/01/2017' patient is stabilizing via medication showing good progress with behavior and mood Dr. Collier reported the patient became agitated over the weekend. He is presently adjusting patient's medications. Nurse(s) Present: Bria HAYNES Nurse(s) Input: 06/08/17 patient is compliant with care Patient is eating meals and taking her medication; responding appropriately with treatment Psychiatric Counselors Present: RA Garcia Psych Therapist Input: 06/08/17 Patient is pending NH placement via insurance improvable to [facility] 06/01/2017; Counselor will be contacting [facility] to ensure they only require [id number] to return to the facility Patient was asleep and did not wake up to voice or touch. Group Spec/RT/OT/MOTT Present: PANTERA López Group Spec/RT/OT/MOTT Input: 06/08/2017 Patient is unable to attend groups 06/01/2017 Patient has been unable to participate with activities but obtain face to face contact and activities Patient is new to the unit and will be encouraged to participate in therapeutic activities. Documentation Scribe: RA Garcia Sandra LMHC Jun 08, 2017 12:10
[2017-06-08 18:00] VITALS: BP 149/59; PULSE 61; RESP 16; TEMP 97; O2SAT 97
[2017-06-08] MEDS: LORazepam 0.5 MG TAB PO PRN (20:55)
[2017-06-08] MEDS: QUEtiapine FUMARATE 25 MG TAB PO SCH (20:55)
[2017-06-08] MEDS: DULoxetine HCl DR 30 MG CAP PO SCH (20:55)
[2017-06-08] MEDS: ACETAMINOPHEN 325 MG TAB PO PRN (20:56)
[2017-06-08] MEDS: MONTELUKAST SODIUM 10 MG TAB PO SCH (20:56)
[2017-06-08] MEDS: HEPARIN SODIUM - SQ 10,000 UNITS/ML VIAL SQ SCH (20:57)
[2017-06-09 03:42] LABS: C. DIFF EPI 027 PRESUMPTIVE NEGATIVE (NEGATIVE)
[2017-06-09] MEDS: FREE WATER PO SCH ×7 (04:00→23:37)
[2017-06-09] MEDS: LEVOTHYROXINE SODIUM 25 MCG TAB PO SCH (06:00)
[2017-06-09] MEDS: CARBIDOPA/LEVODOPA 25 MG/100 MG TAB PO SCH ×3 (06:00→21:52)
[2017-06-09 06:28] VITALS: BP 162/63; PULSE 69; RESP 16; TEMP 97.6; O2SAT 96
--- NOTE | 2017-06-09 08:59 | HHI.PR ---
Subjective Remarks Patient is sleeping in her bed. Prior to my rounds, she was on the phone with her family members. No acute issues overnight. She states her diarrhea is improving. She reports she was getting lomotril. She was explained that her urine cultures are now growing Escherichia coli as previously. Objective Vitals Vital Signs Date Time Temp Pulse Resp B/P (MAP) Pulse Ox O2 Delivery O2 Flow Rate FiO2 06/09/17 06:28 97.6 69 16 162/63 (96) 96 06/08/17 18:00 97.0 61 16 149/59 (89) 97 I/O 06/08/17 06/08/17 06/08/17 06/09/17 06/09/17 06/09/17 07:00 15:00 23:00 07:00 15:00 23:00 Intake Total 0 ml 720 ml 1080 ml 360 ml Output Total 1 ml Balance 0 ml 720 ml 1080 ml 359 ml Intake Oral 0 ml 720 ml 1080 ml 360 ml Output Urine Total 1 ml # Voids 1 2 # Bowel Movements 1 1 Result Diagram: 06/07/1735 06/07/1735 Objective Remarks GENERAL: This is a well-nourished, well-developed patient, in no apparent distress. Pleasant. SKIN: No rashes, ecchymoses or lesions. Cool and dry. HEAD: Atraumatic. Normocephalic. No temporal or scalp tenderness. EYES: No scleral icterus. No injection or drainage. ENT: Nose without bleeding, purulent drainage or septal hematoma. Airway patent. NECK: Trachea midline. No JVD CARDIOVASCULAR: Regular rate and rhythm without murmurs, gallops, or rubs. RESPIRATORY: Clear to auscultation. Breath sounds equal bilaterally. No wheezes , rales, or rhonchi. GASTROINTESTINAL: Abdomen soft, non-tender, nondistended.. No guarding. MUSCULOSKELETAL: Extremities without clubbing, cyanosis, or edema. No calf tenderness. NEUROLOGICAL: Awake and alert. Motor and sensory grossly within normal limits. Normal speech. A/P Assessment and Plan Impression: diarrhea hyokalmeia acute kidney injury recent ecoli uti was treated with macrobid - repeat UA dirty, cx showing ecoli, sensitivity reviewed macular degeneration Comorbid conditions: Hypertension CAD Diabetes. Resume sliding scale coverage. but pt never received it here- A1c is 5.8, d/c pt's home oral hypoglycemics upon discharge- never needed meds while in hospital Hypothyroidism Schizophrenia Parkinson's disease Likely underlying dementia. Patient reports that she used to be on Exelon patch and she is wondering why she is not on it now. We'll check with her pharmacy and her psychiatrist to determine whether to resume this or not. History of macular degeneration. Nursing to find out patient's eyedrops name and doses and will resume. Plan: po fluids encourage hypokalmeia improved Free water by mouth. Will follow renal function every 3 days or so. - will repeat labs today, is stable, we would sign off on the case. Just encourage by mouth hydration. start pt on cipro for UTI- 7 days course repeat C diff negative pt was not getting her immodium although she said she was- nursing records also reveal more of once a day BM- thus maybe not having diarrhea? will monitor closely Continue rest of her meds. DVT prophylaxis. on heparin PT consult. Discharge Planning per psychiatry Shaun Valdivia MD Jun 09, 2017 08:59
[2017-06-09] MEDS: VALPROIC ACID 250 MG CAP PO SCH ×2 (09:12→20:51)
[2017-06-09] MEDS: LACTOBACILLUS ACIDOPHILUS TAB PO SCH ×3 (09:12→17:50)
[2017-06-09] MEDS: CLOPIDOGREL 75 MG TAB PO SCH (09:12)
[2017-06-09] MEDS: PANTOPRAZOLE SOD 40 MG DELAYED RELEASE TAB PO SCH (09:12)
[2017-06-09] MEDS: VITAMIN E 400 UNIT CAP PO SCH (09:12)
[2017-06-09] MEDS: METOPROLOL TARTRATE 25 MG TAB PO SCH ×2 (09:12→20:51)
[2017-06-09] MEDS: PRAVASTATIN SOD 40 MG TAB PO SCH (09:12)
[2017-06-09] MEDS: ASPIRIN 81 MG CHEW TAB CHEW SCH (09:12)
[2017-06-09] MEDS: FERROUS SULFATE 325 MG (65 MG ELEMENTAL IRON) TAB PO SCH (09:12)
[2017-06-09] MEDS: HEPARIN SODIUM - SQ 10,000 UNITS/ML VIAL SQ SCH ×2 (09:13→20:52)
--- NOTE | 2017-06-09 09:24 | HHI.PYPN ---
Subjective Remarks Patient seen for follow-up, chart reviewed. Discussion she staff reported the patient continues to have loose stools and has been compliant with medications. Patient was found sitting in bed, cooperative eating breakfast. Patient states that she has been feeling well despite having continued loose bowel movements. He states that she has had chronic loose stools for years now was treated previously in [place] but states that she has not had any increase in frequency of episodes recently. C. difficile culture was negative. Patient states that he is looking forward to going to the nursing facility once discharged but is considering moving to [place] later. Patient denies any SI, HI , AVH or delusions at this time. Review of Systems Except as stated in HPI: all other systems reviewed are Neg Mental Status Examination Appearance: Appropriate Consciousness: Alert Orientation: Person Speech: Unremarkable, Slow Language: Adequate Fund of Knowledge: Inadequate Attention and Concentration: Inadequate Memory: Impaired Mood: Appropriate Affect: Appropriate Thought Process & Associations: Goal directed, Linear Thought Content: Appropriate Hallucination Type: None Delusion Type: None Suicidal Ideation: No Suicidal Plan: No Suicidal Intention: No Homicidal Ideation: No Homicidal Plan: No Homicidal Intention: No Insight: Fair Judgment: Adequate Results Labs Abstract reviewed Date/Time Source Procedure Growth Status 06/07/17 16:30 Stool Stool - Final NO ENTERIC PATHOGENS DETECTED BY PCR... Complete 06/07/17 12:30 Urine Catheterized Urine Urine Culture - Final Escherichia Coli Complete Vitals/IOs Vital Signs Date Time Temp Pulse Resp B/P (MAP) Pulse Ox O2 Delivery O2 Flow Rate FiO2 06/09/17 06:28 97.6 69 16 162/63 (96) 96 Intake and Output 06/09/17 06/09/17 06/10/17 08:00 16:00 00:00 Intake Total 120 ml Output Total 1 ml Balance 119 ml Assessment & Plan Problem List: (1) Schizophrenia ICD Codes: F20.9 - Schizophrenia, unspecified Assessment & Plan Patient at this time has not had a behavioral disturbances since admission, cooperative and pleasant with staff. Patient compliant with medications patient continues with loose bowel movement which primary medical team is currently following up with. Continue recommendations as per primary medical team. Continue current treatment. Patient awaiting acceptance into nursing facility. Justification for Cont. Inpt. At risk for further decompensation if at lower level of care Discharge Planning Patient awaiting acceptance into nursing facility. Seb Collier MD Jun 09, 2017 09:24
[2017-06-09] MEDS: ACETAMINOPHEN 325 MG TAB PO PRN ×2 (09:58→21:51)
[2017-06-09] MEDS: CIPROFLOXACIN 750 MG TAB PO SCH ×2 (11:16→20:51)
[2017-06-09 12:16] LABS: BICARBONATE 24.7 MEQ/L (21.0-32.0); POTASSIUM 3.9 MEQ/L (3.5-5.1)
[2017-06-09] MEDS: LOPERAMIDE HCL 2 MG CAP PO PRN (12:58)
[2017-06-09 18:15] VITALS: BP 102/51; PULSE 61; RESP 16; TEMP 97.8; O2SAT 96
[2017-06-09] MEDS: DULoxetine HCl DR 30 MG CAP PO SCH (20:51)
[2017-06-09] MEDS: QUEtiapine FUMARATE 25 MG TAB PO SCH (20:51)
[2017-06-09] MEDS: MONTELUKAST SODIUM 10 MG TAB PO SCH (20:51)
[2017-06-09] MEDS: LORazepam 2 MG/ML VIAL IM PRN (23:27)
[2017-06-10] MEDS: FREE WATER PO SCH ×5 (03:47→20:00)
[2017-06-10 05:53] VITALS: BP 145/63; PULSE 68; RESP 16; TEMP 96.9; O2SAT 95
[2017-06-10] MEDS: CARBIDOPA/LEVODOPA 25 MG/100 MG TAB PO SCH ×3 (06:32→21:01)
[2017-06-10] MEDS: LEVOTHYROXINE SODIUM 25 MCG TAB PO SCH (06:32)
[2017-06-10] MEDS: ASPIRIN 81 MG CHEW TAB CHEW SCH (08:24)
[2017-06-10] MEDS: CLOPIDOGREL 75 MG TAB PO SCH (08:24)
[2017-06-10] MEDS: VALPROIC ACID 250 MG CAP PO SCH ×2 (08:24→21:04)
[2017-06-10] MEDS: CIPROFLOXACIN 750 MG TAB PO SCH ×2 (08:24→21:02)
[2017-06-10] MEDS: PANTOPRAZOLE SOD 40 MG DELAYED RELEASE TAB PO SCH (08:24)
[2017-06-10] MEDS: VITAMIN E 400 UNIT CAP PO SCH (08:24)
[2017-06-10] MEDS: METOPROLOL TARTRATE 25 MG TAB PO SCH ×2 (08:24→21:05)
[2017-06-10] MEDS: LACTOBACILLUS ACIDOPHILUS TAB PO SCH ×3 (08:24→17:53)
[2017-06-10] MEDS: PRAVASTATIN SOD 40 MG TAB PO SCH (08:24)
[2017-06-10] MEDS: FERROUS SULFATE 325 MG (65 MG ELEMENTAL IRON) TAB PO SCH (08:24)
[2017-06-10] MEDS: HEPARIN SODIUM - SQ 10,000 UNITS/ML VIAL SQ SCH (08:25)
--- NOTE | 2017-06-10 09:31 | HHI.PYPN ---
Subjective Remarks Patient was seen today for psychiatric reevaluation. Case was discussed with nursing charge and also with social security assessor Maru. Hospitalist follow-up and recommendations were reviewed. Patient was found eating her breakfast, she is in a good spirits, reports good mood, smiling, pleasantly confused and demented , but very calm and cooperative. Patient says that she is looking forward to leave "and continue with my life". She denies suicidal ideation, she denies homicidal ideation, she denies visual and auditory hallucinations. Compliant with her medications, no significant side effects reported. No agitation or aggressive behavior reported. Review of Systems Except as stated in HPI: all other systems reviewed are Neg Mental Status Examination Appearance: Appropriate Consciousness: Alert Orientation: Person Speech: Unremarkable, Slow Language: Adequate Fund of Knowledge: Inadequate Attention and Concentration: Inadequate Memory: Impaired Mood: Appropriate Affect: Appropriate Thought Process & Associations: Goal directed, Linear Thought Content: Appropriate Hallucination Type: None Delusion Type: None Suicidal Ideation: No Suicidal Plan: No Suicidal Intention: No Homicidal Ideation: No Homicidal Plan: No Homicidal Intention: No Insight: Fair Judgment: Adequate Results Labs Test 06/09/17 11:25 Blood Urea Nitrogen 32 MG/DL Creatinine 1.27 MG/DL Random Glucose 143 MG/DL Calcium Level 9.0 MG/DL Sodium Level 140 MEQ/L Potassium Level 3.9 MEQ/L Chloride Level 106 MEQ/L Carbon Dioxide Level 24.7 MEQ/L Anion Gap 9 MEQ/L Estimat Glomerular Filtration Rate 41 ML/MIN Date/Time Source Procedure Growth Status 06/07/17 16:30 Stool Stool - Final NO ENTERIC PATHOGENS DETECTED BY PCR... Complete 06/07/17 12:30 Urine Catheterized Urine Urine Culture - Final Escherichia Coli Complete Vitals/IOs Vital Signs Date Time Temp Pulse Resp B/P (MAP) Pulse Ox O2 Delivery O2 Flow Rate FiO2 06/10/17 05:53 96.9 68 16 145/63 (90) 95 Intake and Output 06/10/17 06/10/17 06/11/17 08:00 16:00 00:00 Intake Total 240 ml Balance 240 ml Assessment & Plan Problem List: (1) Schizophrenia ICD Codes: F20.9 - Schizophrenia, unspecified Assessment & Plan: Continue current psychotropic regimen. Assessment & Plan Estimated LOS: days Justification for Cont. Inpt. Patient has an elevated risk to decompensate at a lower level of care. Jake Carson MD Jun 10, 2017 09:31
[2017-06-10] MEDS: LOPERAMIDE HCL 2 MG CAP PO PRN (16:18)
[2017-06-10 17:45] VITALS: BP 127/58; PULSE 72; RESP 15; TEMP 98.1; O2SAT 95
[2017-06-10] MEDS: MONTELUKAST SODIUM 10 MG TAB PO SCH (21:01)
[2017-06-10] MEDS: DULoxetine HCl DR 30 MG CAP PO SCH (21:02)
[2017-06-10] MEDS: QUEtiapine FUMARATE 25 MG TAB PO SCH (21:03)
[2017-06-11] MEDS: FREE WATER PO SCH ×6 (04:00→20:00)
[2017-06-11 05:42] VITALS: BP 134/61; PULSE 66; RESP 16; TEMP 98; O2SAT 98
[2017-06-11] MEDS: LEVOTHYROXINE SODIUM 25 MCG TAB PO SCH (06:34)
[2017-06-11] MEDS: CARBIDOPA/LEVODOPA 25 MG/100 MG TAB PO SCH ×3 (06:34→21:00)
[2017-06-11] MEDS: ASPIRIN 81 MG CHEW TAB CHEW SCH (08:17)
[2017-06-11] MEDS: PRAVASTATIN SOD 40 MG TAB PO SCH (08:17)
[2017-06-11] MEDS: CLOPIDOGREL 75 MG TAB PO SCH (08:17)
[2017-06-11] MEDS: VALPROIC ACID 250 MG CAP PO SCH ×2 (08:17→20:59)
[2017-06-11] MEDS: LACTOBACILLUS ACIDOPHILUS TAB PO SCH ×3 (08:17→18:11)
[2017-06-11] MEDS: PANTOPRAZOLE SOD 40 MG DELAYED RELEASE TAB PO SCH (08:17)
[2017-06-11] MEDS: METOPROLOL TARTRATE 25 MG TAB PO SCH ×2 (08:17→21:00)
[2017-06-11] MEDS: VITAMIN E 400 UNIT CAP PO SCH (08:17)
[2017-06-11] MEDS: CIPROFLOXACIN 750 MG TAB PO SCH (08:17)
[2017-06-11] MEDS: FERROUS SULFATE 325 MG (65 MG ELEMENTAL IRON) TAB PO SCH (08:17)
[2017-06-11] MEDS: ACETAMINOPHEN 325 MG TAB PO PRN ×2 (08:18→22:53)
[2017-06-11 18:00] VITALS: BP 136/58; PULSE 63; RESP 16; TEMP 97.9; O2SAT 96
[2017-06-11] MEDS: CIPROFLOXACIN 500 MG TAB PO SCH (18:11)
--- NOTE | 2017-06-11 18:12 | HHI.PYPN ---
Subjective Remarks Patient was seen and case discussed with nursing. Pt is pleasant and cooperative with exam. Describes her mood as "feeling good." No psychotic symptoms were elicited. Nursing concerned about cough. Mental Status Examination Appearance: Appropriate Consciousness: Alert Orientation: Person Speech: Unremarkable, Slow Language: Adequate Fund of Knowledge: Inadequate Attention and Concentration: Adequate, Inadequate Memory: Impaired Mood: Appropriate Affect: Appropriate Thought Process & Associations: Goal directed, Linear Thought Content: Appropriate Hallucination Type: None Delusion Type: None Suicidal Ideation: No Suicidal Plan: No Suicidal Intention: No Homicidal Ideation: No Homicidal Plan: No Homicidal Intention: No Insight: Fair Judgment: Adequate Results Labs Date/Time Source Procedure Growth Status 06/07/17 16:30 Stool Stool - Final NO ENTERIC PATHOGENS DETECTED BY PCR... Complete 06/07/17 12:30 Urine Catheterized Urine Urine Culture - Final Escherichia Coli Complete Vitals/IOs Vital Signs Date Time Temp Pulse Resp B/P (MAP) Pulse Ox O2 Delivery O2 Flow Rate FiO2 06/11/17 18:00 97.9 63 16 136/58 (84) 96 Intake and Output 06/11/17 06/11/17 06/12/17 08:00 16:00 00:00 Intake Total 360 ml 960 ml 1080 ml Balance 360 ml 960 ml 1080 ml Assessment & Plan Problem List: (1) Schizophrenia ICD Codes: F20.9 - Schizophrenia, unspecified Assessment & Plan Continue current treatment plan Justification for Cont. Inpt. Patient would decompensate in a less restrictive setting Jose Aguilar DO Jun 11, 2017 18:12
[2017-06-11] MEDS: QUEtiapine FUMARATE 25 MG TAB PO SCH (20:59)
[2017-06-11] MEDS: DULoxetine HCl DR 30 MG CAP PO SCH (20:59)
[2017-06-11] MEDS: MONTELUKAST SODIUM 10 MG TAB PO SCH (20:59)
[2017-06-11] MEDS: BENZONATATE 100 MG CAP PO PRN (21:09)
[2017-06-11] MEDS: LOPERAMIDE HCL 2 MG CAP PO PRN (21:10)
[2017-06-11] MEDS: LORazepam 0.5 MG TAB PO PRN ×2 (22:41→22:44)
[2017-06-12] MEDS: FREE WATER PO SCH ×6 (04:00→20:00)
[2017-06-12 06:06] VITALS: BP 119/54; PULSE 76; RESP 16; TEMP 98.4; O2SAT 96
[2017-06-12] MEDS: CIPROFLOXACIN 500 MG TAB PO SCH ×2 (06:39→18:07)
[2017-06-12] MEDS: CARBIDOPA/LEVODOPA 25 MG/100 MG TAB PO SCH ×3 (06:39→22:22)
[2017-06-12] MEDS: LEVOTHYROXINE SODIUM 25 MCG TAB PO SCH (06:39)
[2017-06-12] MEDS: CLOPIDOGREL 75 MG TAB PO SCH (08:17)
[2017-06-12] MEDS: METOPROLOL TARTRATE 25 MG TAB PO SCH ×2 (08:17→21:00)
[2017-06-12] MEDS: PRAVASTATIN SOD 40 MG TAB PO SCH (08:17)
[2017-06-12] MEDS: VALPROIC ACID 250 MG CAP PO SCH ×2 (08:17→22:22)
[2017-06-12] MEDS: ASPIRIN 81 MG CHEW TAB CHEW SCH (08:17)
[2017-06-12] MEDS: VITAMIN E 400 UNIT CAP PO SCH (08:17)
[2017-06-12] MEDS: LACTOBACILLUS ACIDOPHILUS TAB PO SCH ×3 (08:17→18:07)
[2017-06-12] MEDS: BENZONATATE 100 MG CAP PO PRN ×3 (08:18→22:22)
[2017-06-12] MEDS: FERROUS SULFATE 325 MG (65 MG ELEMENTAL IRON) TAB PO SCH (08:18)
[2017-06-12] MEDS: PANTOPRAZOLE SOD 40 MG DELAYED RELEASE TAB PO SCH (08:18)
--- NOTE | 2017-06-12 14:43 | HHI.PYPN ---
Subjective Remarks Pt was seen and case discussed with nursing. AAOx3. Behaving well on the unit, no outbursts, tolerating medication well. Looking forward to discharge next week. Mental Status Examination Appearance: Appropriate Consciousness: Alert Orientation: Person Speech: Unremarkable Language: Adequate Fund of Knowledge: Inadequate Attention and Concentration: Adequate, Inadequate Memory: Impaired Mood: Appropriate Affect: Appropriate Thought Process & Associations: Goal directed, Linear Thought Content: Appropriate Hallucination Type: None Delusion Type: None Suicidal Ideation: No Suicidal Plan: No Suicidal Intention: No Homicidal Ideation: No Homicidal Plan: No Homicidal Intention: No Insight: Fair Judgment: Adequate Results Labs Date/Time Source Procedure Growth Status 06/07/17 16:30 Stool Stool - Final NO ENTERIC PATHOGENS DETECTED BY PCR... Complete 06/07/17 12:30 Urine Catheterized Urine Urine Culture - Final Escherichia Coli Complete Vitals/IOs Vital Signs Date Time Temp Pulse Resp B/P (MAP) Pulse Ox O2 Delivery O2 Flow Rate FiO2 06/12/17 06:06 98.4 76 16 119/54 (75) 96 Intake and Output 06/12/17 06/12/17 06/13/17 08:00 16:00 00:00 Intake Total 120 ml 240 ml Balance 120 ml 240 ml Assessment & Plan Problem List: (1) Schizophrenia ICD Codes: F20.9 - Schizophrenia, unspecified Assessment & Plan Continue current treatment plan. Justification for Cont. Inpt. Patient would decompensate in a less restrictive setting. Jose Aguilar DO Jun 12, 2017 14:43
[2017-06-12 18:00] VITALS: BP 129/59; PULSE 73; RESP 16; TEMP 97.2; O2SAT 96
[2017-06-12] MEDS: DULoxetine HCl DR 30 MG CAP PO SCH (22:22)
[2017-06-12] MEDS: QUEtiapine FUMARATE 25 MG TAB PO SCH (22:22)
[2017-06-12] MEDS: MONTELUKAST SODIUM 10 MG TAB PO SCH (22:22)
[2017-06-13] MEDS: FREE WATER PO SCH ×4 (04:00→12:00)
[2017-06-13 06:37] VITALS: BP 108/54; PULSE 77; RESP 17; TEMP 97.4
[2017-06-13] MEDS: LEVOTHYROXINE SODIUM 25 MCG TAB PO SCH (06:57)
[2017-06-13] MEDS: CIPROFLOXACIN 500 MG TAB PO SCH (06:57)
[2017-06-13] MEDS: CARBIDOPA/LEVODOPA 25 MG/100 MG TAB PO SCH ×2 (06:57→13:22)
[2017-06-13] MEDS: LACTOBACILLUS ACIDOPHILUS TAB PO SCH ×2 (08:19→13:22)
[2017-06-13] MEDS: FERROUS SULFATE 325 MG (65 MG ELEMENTAL IRON) TAB PO SCH (08:20)
[2017-06-13] MEDS: VALPROIC ACID 250 MG CAP PO SCH (08:20)
[2017-06-13] MEDS: CLOPIDOGREL 75 MG TAB PO SCH (08:20)
[2017-06-13] MEDS: BENZONATATE 100 MG CAP PO PRN (08:20)
[2017-06-13] MEDS: PRAVASTATIN SOD 40 MG TAB PO SCH (08:20)
[2017-06-13] MEDS: METOPROLOL TARTRATE 25 MG TAB PO SCH (08:20)
[2017-06-13] MEDS: PANTOPRAZOLE SOD 40 MG DELAYED RELEASE TAB PO SCH (08:20)
[2017-06-13] MEDS: ASPIRIN 81 MG CHEW TAB CHEW SCH (08:22)
[2017-06-13] MEDS: VITAMIN E 400 UNIT CAP PO SCH (08:22)
[2017-06-13] MEDS ORDERED: FERR325T18 PO (11:22)
[2017-06-13] MEDS ORDERED: MONT10TA4 PO (11:22)
[2017-06-13] MEDS ORDERED: SYNT25TA PO (11:22)
[2017-06-13] MEDS ORDERED: PLAV75TA29 PO (11:22)
[2017-06-13] MEDS ORDERED: DULO1CAP2 PO (11:22)
[2017-06-13] MEDS ORDERED: METO25TA3 PO (11:22)
[2017-06-13] MEDS ORDERED: PROT40TA PO (11:22)
[2017-06-13] MEDS ORDERED: VALP250C PO (11:22)
[2017-06-13] MEDS ORDERED: PRAV40TA2 PO (11:22)
[2017-06-13] MEDS ORDERED: ASPI-516 CHEW (11:22)
[2017-06-13] MEDS ORDERED: LACT PO (11:23)
[2017-06-13] MEDS ORDERED: Carbidopa-Levodopa 25-100 Mg PO (11:23)
[2017-06-13] MEDS ORDERED: CIPR-9 PO (11:23)
[2017-06-13] MEDS ORDERED: SERO25TA PO (11:23)
[2017-06-13] MEDS ORDERED: VITE400 PO (11:23)
--- NOTE | 2017-06-13 11:23 | HHI.DS ---
Psychiatry Discharge Summary Inpatient Psychiatric care?: Yes Advance Directive: No Mental Health AdvanceDirective: No Health Care Proxy: No Admission Admission Date May 27, 2017 at 10:55 Admission Diagnosis: (1) Schizophrenia ICD Code: F20.9 - Schizophrenia, unspecified Brief History The patient is a 81-year-old white woman, domiciled with her daughter, , supported by [employer] benefits, with psychiatric history of schizophrenia, 2 previous psychiatric hospitalizations, last hospitalization was 11 years ago in [facility], she is on Clozaril 35 mg, Cymbalta 60 mg, Depakote 250 medical twice a day, these medications are prescribed by a psychiatrist in [place] , presents to emergency department under [employer] act by PD. Family members called PD because the patient had not been taking her medicines properly. She is also been refusing to eat and drink normally. She has been becoming agitated and trying to hit family members. On psychiatric evaluation patient is very tangential, disorganized, she doesn't really know the reason she is in the hospital. She is partially oriented. Unable to provide much information about herself and her psychiatric history. She states that her daughter tries to give her all of her medicines at one time and she prefers to take them one at a time with applesauce. She also states that she has been eating. She contends that her daughter gets upset easily at her and wants to get her placed in a prison. Patient denies any suicidal or homicidal ideation. She states that she does take her medications. She denies any medical complaints at this time. Patient was just seen in the emergency department 2 weeks ago for evaluation of headache. Laboratory testing including CT scan were unremarkable except for a urinary tract infection. Theo Dawson, , who is the daughter of the patient, clarifies that the reason she brought the patient to the hospital is because the patient has not been taking her psychotropics and has been decompensated. She says that the patient has been having active visual hallucinations, has been paranoid, disorganized and delusional. She has been agitated, difficulty to handle in the house. The patient has been in Clozaril 25 mg, Depakote 250 medical twice a day, but she is not very sure of how compliant the patient has been in the last months, definitely in the last days she has not taking any medication. She is interested in place and the patient in a prison, she says that she doesn' t feel safe with the patient at home the appropriate professional care. 05/27/17 - Second opinion The patient is a 11-year-old woman, domiciled with daughter, , unemployed on [employer] benefits, past psychiatric history of schizophrenia, 2 previous psychiatric hospitalizations, past medical history of Parkinson's disease who was brought in under [employer] act for reported recent aggressive behavior toward daughter as well as not eating and drinking. Patient was found lying in hospital bed on the patient medical/psychiatry unit it was noted to be alert oriented to person, confused, disorganized, making nonsensical statements and able to participate effectively in evaluation today. As per chart it was reported by patient's daughter that the patient had been having visual hallucinations, paranoia, disorganized had increasingly agitated in the home. Patient at this time will continue to require inpatient psychiatric hospitalization to further evaluate current symptoms and to adjust medications to an appropriate regimen. Tobacco Use In Past 30 Days: No Tobacco Past 30 Days Alcohol Use: Never Hospital Course The patient is a 81-year-old white woman, domiciled with her daughter, , supported by [employer] benefits, with psychiatric history of schizophrenia, 2 previous psychiatric hospitalizations, last hospitalization was 11 years ago in [facility], she is on Clozaril 35 mg, Cymbalta 60 mg, Depakote 250 medical twice a day, these medications are prescribed by a psychiatrist in [place] , presents to emergency department under [employer] by PD which she was transferred to the inpatient psychiatry unit for further evaluation and management. Patient was noted to be disorganized, paranoid, disoriented which she was clozapine was discontinued and started on quetiapine 12.5 mg by mouth twice a day and titrated up to 37.5mg PO at bedtime, continued on duloxetine 30mg PO HS , valproic acid 250mg PO BID and due to bouts of loose stool, patient was started on antibioitics as per primary medical team which was discontinued and prior to discharge was put on ciprofloxacin 500mg PO q12hrs x 10 days. Patient initially was endorsing visual hallucinations of snakes and worms as well as noted fluctuations in orientation initially but began to be more consistent. Patient continue with treatment and was noted to have improvement of mood, was noted to be cooperative with staff as well as participatory in conversations with other peers on the unit. Patient was noted to have improvement of insight and judgment as well as cessation of any perceptual disturbances. Patient was adherent to medication regimen and recommendations as per primary medical team. Upon discharge patient stated feeling good, stated feeling okay with returning back to her residence with her daughter, was calm and cooperative with staff. She agreed to continuing medical recommendations, treatment and attend outpatient follow up appointments for continuity of care. Patient will be discharged back to her residence with home health services in place which the daughter agreed to oversee. Patient; denies SI, HI, AVH or delusions. Supportive psychotherapy provided. Patient advised to call 911 or return back to the ED in case of any emergency. Patient agrees with plan. Results Blood Pressure 108 / 54 Vital Signs Date Time Temp Pulse Resp B/P (MAP) Pulse Ox O2 Delivery O2 Flow Rate FiO2 06/13/17 06:37 97.4 77 17 108/54 (72) 06/12/17 18:00 96 Laboratory Results Test 05/28/17 07:19 05/31/17 05:37 Hemoglobin A1c 5.8 % (4.3-6.0) Valproic Acid (Depakene) Level 65 MCG/ML (50-100) Summary of Procedures none Imaging Last Impressions Brain MRI 05/28/17 0000 Signed Impressions: Service Date/Time: Sunday, May 28, 2017 14:59 - CONCLUSION: 1. Senescent changes with mild periventricular small vessel ischemic white matter dilatation. 2. No acute abnormality. Specifically, no evidence for acute ischemia/ infarction or mass. Anand Cespedes MD Pending results at discharge: No Medications # of Antipsychotic meds at D/C: 1 Approp Antipsych med options 1 - Minimum of three failed multiple trials of monotherapy. 2 - Documented plan to taper to monotherapy due to previous use of multiple meds OR cross-taper in progress at D/C. 3 - Documentation of augmentation of Clozapine. 4 - Justification other than those listed in allowable values 1-3, document here : Discharge Discharge Date: Jun 13, 2017 Discharge Diagnosis: (1) Schizophrenia ICD Code: F20.9 - Schizophrenia, unspecified Status: Chronic Pt Condition on Discharge: Stable Discharge Disposition: Disch w/ Home Health Serv Discharge Instructions Diet Instructions: Heart Healthy Diet Activities you can perform: Weight Bearing as Aaliyah Discharge Time > 30 minutes Mental Status Examination Appearance: Appropriate Consciousness: Alert Orientation: Person Speech: Unremarkable Language: Adequate Fund of Knowledge: Inadequate Attention and Concentration: Adequate, Inadequate Memory: Impaired Mood: Appropriate Affect: Appropriate Thought Process & Associations: Goal directed, Linear Thought Content: Appropriate Hallucination Type: None Delusion Type: None Suicidal Ideation: No Suicidal Plan: No Suicidal Intention: No Homicidal Ideation: No Homicidal Plan: No Homicidal Intention: No Insight: Adequate Judgment: Adequate Discharge/Advance Care Plan Health Problems: (1) Schizophrenia Goals to promote your health * To prevent worsening of your condition and complications * To maintain your health at the optimal level Directions to meet your goals Take your medications as prescribed Follow your dietary instruction Follow activity as directed Keep your appointments as scheduled Take your immunizations and boosters as scheduled If your symptoms worsen call your PCP, if no PCP go to Urgent Care Center or Emergency Room For 17/01 questions related to your inpatient stay or results of tests pending at discharge, please contact Dr. Seb Collier at Smoking is Dangerous to Your Health. Avoid second hand smoking Problem Qualifiers (1) Schizophrenia: Qualified Codes: F20.0 - Paranoid schizophrenia Seb Collier MD Jun 13, 2017 11:23
[2017-06-15] MEDS ORDERED: CHOL1CAP34 PO (11:25)
== END 2017-06-13 15:45 | disposition home health service (06) | DRG 885 ==
LOC: NEPD 22:19 → NEDA 05-27 10:55 → H4EA 05-27 12:15
PROVIDERS: ADMIT Student in an Organized Health Care Education/Training Program; ATTEND Student in an Organized Health Care Education/Training Program
DX: F20.0 Paranoid schizophrenia (principal); N17.9 Acute kidney failure, unspecified; G20 Parkinson's disease; N39.0 Urinary tract infection, site not specified; F02.80 Dementia in other diseases classified elsewhere, unspecified severity, without behavioral disturbance, psychotic disturbance, mood disturbance, and anxiety; N18.9 Chronic kidney disease, unspecified; I12.9 Hypertensive chronic kidney disease with stage 1 through stage 4 chronic kidney disease, or unspecified chronic kidney disease; I25.2 Old myocardial infarction; E87.6 Hypokalemia; E03.9 Hypothyroidism, unspecified; R19.7 Diarrhea, unspecified; I25.10 Atherosclerotic heart disease of native coronary artery without angina pectoris; R32 Unspecified urinary incontinence; G47.30 Sleep apnea, unspecified; H35.30 Unspecified macular degeneration; H40.9 Unspecified glaucoma; B96.20 Unspecified Escherichia coli [E. coli] as the cause of diseases classified elsewhere; Z81.8 Family history of other mental and behavioral disorders; Z85.038 Personal history of other malignant neoplasm of large intestine; Z85.3 Personal history of malignant neoplasm of breast; Z88.1 Allergy status to other antibiotic agents; Z88.2 Allergy status to sulfonamides; Z90.12 Acquired absence of left breast and nipple; Z91.14 Patient's other noncompliance with medication regimen
CPT/HCPCS: 70551; 80048; 80053; 80164; 80307; 81001; 82140; 82607; 82948; 83036; 84443; 85025; 85652; 86140; 87077; 87086; 87186; 87493; 87506; 95819; 99285; J1644; J2060